=== PATIENT | female | born 1945 | race Caucasian/White ===

== ENCOUNTER 2023-06-12 14:14 | Inpatient (IN) | payer MEDICARE ==
[2023-06-12] MEDS ORDERED: SODIUM CHLORIDE 0.9% 1,000 ML IV ONE (14:57)
--- NOTE | 2023-06-12 14:57 | ED ---
General Adult HPI - General Chief complaint: Abdominal Pain Stated complaint: bowel obstruction Time Seen by Provider: 06/12/23 14:20 Source: patient, RN notes reviewed, old records reviewed Mode of arrival: EMS Limitations: no limitations - History of Present Illness Initial comments: This is a 77-year-old female presents emergency department from [facility]. Patient was seen there because she started having some abdominal pain and nausea and vomiting yesterday. Patient states he continues this morning got a little bit worse and she came to the emergency department with a diagnosed her with a partial small bowel obstruction and ileitis. They did not have a surgeon [place] the police transfer the patient to us. Patient denies any fever chills. Patient denies any back pain. Patient denies any lightheadedness or dizziness. Patient states that she was at the other facility and they gave her something for nausea if she feels considerably better. Patient currently does not have any abdominal pain - Related Data Allergies Allergy/AdvReac Type Severity Reaction Status Date / Time shellfish derived [Shellfish] Allergy Anaphylaxis Verified 06/12/23 14:28 Review of Systems ROS Statement: Those systems with pertinent positive or pertinent negative responses have been documented in the HPI. ROS Other: All systems not noted in ROS Statement are negative. Past Medical History Past Medical History: Diabetes Mellitus, Hyperlipidemia, Hypertension Additional Past Medical History / Comment(s): type II DM. h-pylori History of Any Multi-Drug Resistant Organisms: None Reported Past Surgical History: Appendectomy, Section, Orthopedic Surgery Past Psychological History: No Psychological Hx Reported Smoking Status: Never smoker Past Alcohol Use History: None Reported Past Drug Use History: None Reported General Exam - General Exam Comments Initial Comments: GENERAL: Patient is well-developed and well-nourished. Patient is nontoxic and well- hydrated and is in mild distress. ENT: Neck is soft and supple. No significant lymphadenopathy is noted. Oropharynx is clear. Moist mucous membranes. Neck has full range of motion without eliciting any pain. EYES: The sclera were anicteric and conjunctiva were pink and moist. Extraocular movements were intact and pupils were equal round and reactive to light. Eyelids were unremarkable. PULMONARY: Unlabored respirations. Good breath sounds bilaterally. No audible rales rhonchi or wheezing was noted. CARDIOVASCULAR: There is a regular rate and rhythm without any murmurs gallops or rubs. ABDOMEN: Soft and nontender with normal bowel sounds. SKIN: Skin is clear with no lesions or rashes and otherwise unremarkable. NEUROLOGIC: Patient is alert and oriented x3. Cranial nerves II through XII are grossly intact. Motor and sensory are also intact. Normal speech, volume and content. Symmetrical smile. MUSCULOSKELETAL: Normal extremities with adequate strength and full range of motion. No lower extremity swelling or edema. No calf tenderness. LYMPHATICS: No significant lymphadenopathy is noted PSYCHIATRIC: Normal psychiatric evaluation. Limitations: no limitations Course Vital Signs 06/12/23 06/12/23 14:17 14:27 Temperature 99.9 F H Pulse Rate 90 82 Respiratory 18 16 Rate Blood Pressure 144/77 O2 Sat by Pulse 98 Oximetry Medical Decision Making - Medical Decision Making Was pt. sent in by a medical professional or institution (, PA, CHARGE ATTENDANT, urgent care, hospital, or intermediate...) When possible be specific @ -Patient was sent to us by [facility] Did you speak to anyone other than the patient for history (EMS, parent, family, police, friend...)? What history was obtained from this source @ -I spoke with the ER physician prior to the patient's arrival Did you review nursing and triage notes (agree or disagree)? Why? @ -I reviewed and agree with nursing and triage notes Were old charts reviewed (outside hosp., previous admission, EMS record, old EKG, old radiological studies, urgent care reports/EKG's, intermediate records)? Report findings @ -I reviewed all the charting lab work and radiological studies from the other facility Differential Diagnosis (chest pain, altered mental status, abdominal pain women, abdominal pain men, vaginal bleeding, weakness, fever, dyspnea, syncope, headache, dizziness, GI bleed, back pain, seizure, CVA, palpatations, mental health, musculoskeletal)? @ -Differential Abdominal Pain Women: Appendicitis, Cholecystitis, diverticulosis, ischemic bowel, pancreatitis, hepatitis, UTI, gastroenteritis, AAA, incarcerated hernia, bowel obstruction, constipation, inflammatory bowel, hepatitis, peptic ulcer disease, splenic infarction, perforated viscus, vulvitis, ovarian torsion, PID, kidney stone, placenta abruption, this is not meant to be an all-inclusive list EKG interpreted by me (3pts min.). @ -As above X-rays interpreted by me (1pt min.). @ -None done CT interpreted by me (1pt min.). @ -None done U/S interpreted by me (1pt. min.). @ -None done What testing was considered but not performed or refused? (CT, X-rays, U/S, labs)? Why? @ -None What meds were considered but not given or refused? Why? @ -None Did you discuss the management of the patient with other professionals (professionals i.e. DrUzma, PA, CHARGE ATTENDANT, lab, RT, psych nurse, social director, auto tech, teacher, data officer, case preparer and liner)? Give summary @ -I spoke with Dr. Sequeira he agreed to admit the patient admitted the patient and I consulted surgery Was smoking cessation discussed for >3mins.? @ -No Was critical care preformed (if so, how long)? @ -No Were there social determinants of health that impacted care today? How? (Homelessness, low income, unemployed, alcoholism, drug addiction, transportation, low edu. Level, literacy, decrease access to med. care, correction, rehab)? @ -No Was there de-escalation of care discussed even if they declined (Discuss DNR or withdrawal of care, Hospice)? DNR status @ -No What co-morbidities impacted this encounter? (DM, HTN, Smoking, COPD, CAD, Cancer, CVA, ARF, Chemo, Hep., AIDS, mental health diagnosis, sleep apnea, morbid obesity)? @ -None Was patient admitted / discharged? Hospital course, mention meds given and route, prescriptions, significant lab abnormalities, going to OR and other pertinent info. @ -Patient has no abdominal pain currently is not nauseated so no further intervention was needed. I spoke with Dr. Sequeira he accepted the patient I consulted surgery Undiagnosed new problem with uncertain prognosis? @ -No Drug Therapy requiring intensive monitoring for toxicity (Heparin, Nitro, Insulin, Cardizem)? @ -No Were any procedures done? @ -No Diagnosis/symptom? @ -Partial small bowel obstruction Acute, or Chronic, or Acute on Chronic? @ -Acute Uncomplicated (without systemic symptoms) or Complicated (systemic symptoms)? @ -Complicated Side effects of treatment? @ -No Exacerbation, Progression, or Severe Exacerbation? @ -No Poses a threat to life or bodily function? How? (Chest pain, [place], [place], pneumonia, PE, COPD, DKA, ARF, appy, cholecystitis, CVA, Diverticulitis, Homicidal, Suicidal, threat to staff... and all critical care pts) @ -No Disposition Clinical Impression: Partial small bowel obstruction Disposition: ADMITTED IP TO THIS HOSP Referrals: Waqar Almazan MD [Primary Care Provider] - 1-2 days Time of Disposition: 14:57
[2023-06-12] MEDS: PANTOPRAZOLE 40 MG/10 ML VIAL IVP SCH ×2 (15:51→22:25)
--- NOTE | 2023-06-12 19:03 | HP ---
HISTORY AND PHYSICAL CHIEF COMPLAINT: Abdominal pain. HISTORY OF PRESENT ILLNESS: This is a 77-year-old woman with a past medical history of multiple medical problems had a recent GI workup including upper and lower endoscopy. H pylori infection was also dictated apparently. The patient took some antibiotics. Currently, the patient is complaining of abdominal pain, nausea, and vomiting. The patient also had some small amount of blood clot according to the family. The patient went to [facility] in [place], and small bowel obstruction was suspected, and the patient was transferred to [facility] for further evaluation and treatment. There is no history of fever, rigor, or chills. The patient is followed by Dr. Waqar Arriola in the outpatient setting. PAST MEDICAL HISTORY: Reviewed includes diabetes mellitus, hypertension, and hyperlipidemia. Rest of the history and rest of the chart are also reviewed. HOME MEDICATIONS: Unavailable. ALLERGIES: Shellfish. FAMILY HISTORY: No history of heart disease or strokes. SOCIAL HISTORY: No history of smoking or alcohol intake. REVIEW OF SYSTEMS: Fourteen-point review is negative except as mentioned earlier. PHYSICAL EXAMINATION: VITAL SIGNS: Pulse 90, blood pressure 144/77, respirations 16. HEENT: Conjunctivae are normal. NECK: No jugular venous distention. CARDIOVASCULAR: S1 and S2 muffled. RESPIRATORY: Breath sounds diminished at the bases. ABDOMEN: Soft. Mild diffuse discomfort. Otherwise, no guarding. No rigidity. No masses palpable. LEGS: No edema. NERVOUS SYSTEM: Nonfocal. LABORATORY DATA: Not available. ASSESSMENT: 1. Abdominal pain and vomiting, possible partial small bowel obstruction. 2. Possible acute gastritis. 3. History of recent esophagogastroduodenoscopy and colonoscopy with Helicobacter pylori infection. 4. Diabetes mellitus, type 2. 5. Hypertension. 6. Hyperlipidemia. 7. Multiple medical issues. RECOMMENDATIONS AND DISCUSSION: In this 77-year-old woman who presented with multiple complex medical issues, we will monitor the patient closely with initial Surgical consultation and symptomatic treatment with Protonix. Otherwise, we will follow the patient closely. Overall prognosis is guarded. Home medications will be continued once we got the updated list. Discussed with family at length. Further recommendations to follow. MMODL / IJN: [id number] /
[2023-06-12 20:16] LABS: Glucose,Whole Blood 130 mg/dL (70-110)
[2023-06-12] MEDS: INSULIN ASPART (NovoLOG) 100 UNIT/ML VIAL SQ SCH (21:48)
[2023-06-12] MEDS: HYDROmorphone 0.5 MG/0.5 ML SYRINGE IVP PRN (22:16)
[2023-06-12] MEDS: HEPARIN SODIUM,PORCINE 5,000 UNIT/ML 1 ML VIAL SQ SCH (22:17)
[2023-06-12] MEDS: ONDANSETRON 4 MG/2 ML VIAL IVP PRN (22:25)
[2023-06-13] MEDS: HYDROmorphone 0.5 MG/0.5 ML SYRINGE IVP PRN ×5 (04:19→21:13)
[2023-06-13] MEDS: ONDANSETRON 4 MG/2 ML VIAL IVP PRN ×2 (04:25→17:07)
[2023-06-13 06:58] LABS: Glucose,Whole Blood 129 mg/dL (70-110)
[2023-06-13] MEDS: INSULIN ASPART (NovoLOG) 100 UNIT/ML VIAL SQ SCH ×4 (07:47→21:13)
[2023-06-13] MEDS ORDERED: IOPAMIDOL CONTRAST (ORAL USE) VIAL PO PRN (08:46)
--- NOTE | 2023-06-13 08:46 | P.GSCN ---
History of Present Illness Consult date: 06/13/23 Reason for Consult: Partial small bowel obstruction History of present illness: This a 77-year-old female who is transferred from outside hospital. Patient points of abdominal pain nausea. The outside facility perform a CAT scan which showed possible partial small bowel charge. Patient still has complaints of nausea and some mild abdominal pain. Past Medical History Past Medical History: Diabetes Mellitus, Hyperlipidemia, Hypertension Additional Past Medical History / Comment(s): type II DM. h-pylori History of Any Multi-Drug Resistant Organisms: None Reported Past Surgical History: Appendectomy, Section, Orthopedic Surgery Past Anesthesia/Blood Transfusion Reactions: No Reported Reaction Past Psychological History: No Psychological Hx Reported Smoking Status: Never smoker Past Alcohol Use History: None Reported Past Drug Use History: None Reported Medications and Allergies Home Medications Medication Instructions Recorded Confirmed Type Atorvastatin [Lipitor] 20 mg PO HS 06/12/23 06/12/23 History Clarithromycin [Biaxin] 500 mg PO Q12HR 06/12/23 06/12/23 History Cyanocobalamin (Vitamin B-12) 1,000 mcg PO DAILY 06/12/23 06/12/23 History [Vitamin B-12] Ferrous Sulfate [Iron (65 MG 325 mg PO TID 06/12/23 06/12/23 History Elemental)] Lisinopril-Hctz 20-12.5 mg 1 tab PO DAILY 06/12/23 06/12/23 History [Zestoretic 20-12.5] Meloxicam [Mobic] 15 mg PO DAILY 06/12/23 06/12/23 History Metamucil Fiber Gummies 1 tab PO DAILY 06/12/23 06/12/23 History Omeprazole 40 mg PO BID 06/12/23 06/12/23 History amLODIPine [Norvasc] 5 mg PO DAILY 06/12/23 06/12/23 History metFORMIN HCL ER [Glucophage XR] 500 mg PO W/SUPPER 06/12/23 06/12/23 History metroNIDAZOLE [Flagyl] 500 mg PO BID 06/12/23 06/12/23 History Allergies Allergy/AdvReac Type Severity Reaction Status Date / Time shellfish derived [Shellfish] Allergy Anaphylaxis Verified 06/12/23 15:50 Surgical - Exam Vital Signs Temp Pulse Resp Pulse Ox 99.9 F H 90 18 98 06/12/23 14:17 06/12/23 14:17 06/12/23 14:17 06/12/23 14:17 - General well developed, well nourished, no distress - Eyes PERRL - ENT normal pinna - Neck no masses - Respiratory normal expansion - Cardiovascular Rhythm: regular - Abdomen Mildly tender, abdomen is distended. Abdomen: soft Results - Labs Abnormal Lab Results - Last 24 Hours (Table) 06/12/23 06/13/23 Range/Units 20:15 06:57 POC Glucose (mg/dL) 130 H 129 H (70-110) mg/dL Assessment and Plan Assessment: Abdominal distention and pain. Possible small bowel obstruction. Patient will undergo computed tomography scan of the abdomen with oral contrast.
[2023-06-13] MEDS: PANTOPRAZOLE 40 MG/10 ML VIAL IVP SCH ×2 (08:54→21:12)
[2023-06-13] MEDS: HEPARIN SODIUM,PORCINE 5,000 UNIT/ML 1 ML VIAL SQ SCH ×2 (08:54→21:12)
[2023-06-13 09:22] LABS: HCT 32.3 % (37.2-46.3); HGB 9.2 d/dL (12.0-15.0); MCH 23.2 pg (27.0-32.0); MCHC 28.5 d/dL (32.0-37.0); MCV 81.4 FL (80.0-97.0); Mean Platelet Volume 10.8 FL (9.5-12.2); NRBC Per 100 WBC 0 X 10*3/uL (0.00-0.01); Platelet Count 232 X 10*3/uL (140-440); RBC 3.97 X 10*6/uL (4.10-5.20); RDW 24.9 % (11.5-14.5); WBC 7.62 X 10*3/uL (4.50-10.00)
[2023-06-13] MEDS: BARIUM SULFATE 450 ML ORAL.SUSP BOTTLE PO PRN ×2 (10:12→12:49)
[2023-06-13 10:29] LABS: Anisocytosis (M) 2+; Basophils # (A) 0.01 X 10*3/uL (0.00-0.10); Basophils % (A) 0.1 %; Elliptocytes 2+; Eosinophils # (A) 0.12 X 10*3/uL (0.04-0.35); Eosinophils % (A) 1.6 %; Hypochromasia (M) 2+; Lymphocytes # (A) 1.04 X 10*3/uL (0.90-5.00); Lymphocytes % (A) 13.6 %; Monocytes # (A) 0.51 X 10*3/uL (0.20-1.00); Monocytes % (A) 6.7 %; Neutrophils % (A) 77.5 %
[2023-06-13 11:28] LABS: ALT 13 U/L (8-44); AST 19 U/L (13-35); Albumin 3.7 d/dL (3.8-4.9); Albumin/Globulin Ratio 2.06 Ratio (1.60-3.17); Alkaline Phosphatase 90 U/L (41-126); Amylase 38 U/L (23-121); Blood Urea Nitrogen 11.2 mg/dL (9.0-27.0); Calcium 8.7 mg/dL (8.7-10.3); Carbon Dioxide 21.6 mmol/L (21.6-31.8); Chloride 107 mmol/L (96-109); Globulin 1.8 d/dL (1.6-3.3); Glucose 134 mg/dL (70-110); Lipase 22 U/L (14-63); Potassium 4.2 mmol/L (3.5-5.5); Sodium 140 mmol/L (135-145); Total Bilirubin 0.4 mg/dL (0.3-1.2); Total Protein 5.5 d/dL (6.2-8.2)
[2023-06-13 11:54] LABS: Glucose,Whole Blood 107 mg/dL (70-110)
[2023-06-13 13:34] VITALS: BMI 30.2
--- NOTE | 2023-06-13 13:38 | P.PN ---
Subjective Progress Note Date: 06/13/23 This a 77-year-old female who is transferred from outside hospital. Patient points of abdominal pain nausea. The outside facility perform a CAT scan which showed possible partial small bowel charge. 06/13. Patient seen and examined. Lab work showed WBC 7.62, hemoglobin 9.2, platelet count 232. States pain is improved. Denies any nausea REVIEW OF SYSTEMS: CONSTITUTIONAL: No fever, no malaise,. CARDIOVASCULAR: No chest pain, no palpitations, no syncope. PULMONARY: No shortness of breath, no cough, GASTROINTESTINAL: No diarrhea, no nausea, no vomiting, no abdominal pain. NEUROLOGICAL: No headaches, no weakness, PHYSICAL EXAMINATION: GENERAL: The patient is alert and oriented x3, not in any acute distress. Well developed, well nourished. HEENT: Pupils are round and equally reacting to light. EOMI. No scleral icterus. No conjunctival pallor. Normocephalic, atraumatic. No pharyngeal erythema. No thyromegaly. CARDIOVASCULAR: S1 and S2 present. No murmurs, rubs, or gallops. PULMONARY: Chest is clear to auscultation, no wheezing or crackles. ABDOMEN: Soft, nontender, nondistended, normoactive bowel sounds. No palpable organomegaly. MUSCULOSKELETAL: No joint swelling or deformity. EXTREMITIES: No cyanosis, clubbing, or pedal edema. NEUROLOGICAL: Gross neurological examination did not reveal any focal deficits. SKIN: No rashes. Assessment and plan Abdominal pain Nausea and vomiting Small bowel obstruction Acute gastritis H pylori infection Diabetes type 2 Hypertension Hyperlipidemia Monitor vital signs Monitor CBC Monitor CMP Continue telemetry monitoring Keep patient nothing by mouth Continue IV fluid CT abdominal ordered Surgery following She was supposed with antibiotics for H. pylori, patient stopped taking those medications. Resume Those medications Labs and medication were reviewed.. Continue same treatment. Continue with symptomatic treatment. Resume home medication. Monitor labs and vitals. DVT and GI prophylaxis. Further recommendations as per clinical course of the patient Dictation was produced using [employer] dictation software. please excuse any grammatical, word or spelling errors. Objective - Vital Signs Vital signs: Vital Signs Temp 97.7 F 06/13/23 06:52 Pulse 96 06/13/23 06:52 Resp 18 06/13/23 06:52 BP 118/74 09/23/23 06:52 Pulse Ox 98 06/13/23 06:52 FiO2 Intake & Output 06/12/23 06/13/23 06/13/23 18:59 06:59 18:59 Weight 84.822 kg 84.822 kg Other: Voiding Method Toilet # Voids 1 1 - Labs CBC & Chem 7: 06/13/23 05:20 06/13/23 05:20 Labs: Abnormal Lab Results - Last 24 Hours (Table) 06/12/23 06/13/23 06/13/23 Range/Units 20:15 05:20 06:57 RBC 3.97 L (4.10-5.20) X 10*6/uL Hgb 9.2 L (12.0-15.0) d/dL Hct 32.3 L (37.2-46.3) % MCH 23.2 L (27.0-32.0) pg MCHC 28.5 L (32.0-37.0) d/dL RDW 24.9 H (11.5-14.5) % Hypochromasia (manual) 2+ A Anisocytosis (manual) 2+ A Elliptocytes 2+ A POC Glucose (mg/dL) 130 H 129 H (70-110) mg/dL
[2023-06-13] MEDS: metroNIDAZOLE 500 MG TAB PO SCH ×2 (14:56→21:12)
[2023-06-13] MEDS: CYANOCOBALAMIN 500 MCG TAB PO SCH (15:01)
--- NOTE | 2023-06-13 15:12 | CT ---
EXAMINATION TYPE: CT abdomen pelvis wo con CT DLP: 759.8 mGycm, Automated exposure control for dose reduction was used. DATE OF EXAM: 06/13/2023 2:14 PM COMPARISON: 06/12/2023 CLINICAL INDICATION:Female, 77 years old with history of Small bowel obstruction; Small bowel obstruc tion. TECHNIQUE: Axial CT of the abdomen and pelvis. Sagittal and coronal reformats were created on a [employer] workstation. Contrast used: mL of , (none if empty) Oral contrast used: with Oral Contrast (none if empty) FINDINGS: LOWER CHEST: Similar right lower lung pulmonary nodule near the diaphragm measuring 6 mm. There is moderate coronary artery atherosclerosis. Smaller hernia. ABDOMEN LIVER: Unremarkable GALLBLADDER AND BILE DUCTS: Gallstone in the gallbladder neck. PANCREAS: Unremarkable. SPLEEN: Unremarkable. ADRENAL GLANDS: Unremarkable. KIDNEYS AND URETERS: No evidence of hydronephrosis or renal calculus. The ureters are unremarkable. PELVIS BLADDER: Incompletely distended but grossly unremarkable. REPRODUCTIVE: Unremarkable. ABDOMEN & PELVIS STOMACH AND BOWEL: There remains small bowel feces in the distal ileum with wall thickening of the te rminal ileum up to 10 mm. There is upstream dilation of the small bowel. There is some irregular appe arance of the cecum on prior imaging near the ileocecal valve. Small bowel oral contrast extends into the jejunum. There is some stool within the colon present PERITONEUM/RETROPERITONEUM: No evidence of pneumoperitoneum or free fluid. VASCULATURE: No evidence of aortic aneurysm. MUSCULOSKELETAL: No acute osseous abnormalities LYMPH NODES: Right lower quadrant enlarged mesenteric lymph nodes in the terminal ileum measuring up to 10 mm in short axis. SOFT TISSUE/ABDOMINAL WALL: Unremarkable IMPRESSION: 1. Similar findings from one day prior with irregular appearance of the terminal ileum with possible underlying mass better appreciated on prior exam. Findings result in partial small bowel obstruction . Oral contrast only extends to the jejunum. There may be mildly increased dilation compared to prior exam. There is some adjacent mesentery enlarged lymph nodes which could be reactive versus neoplasti c if there is underlying mass. 2. Similar pulmonary nodules short-term follow-up in 6 months recommended. 3. Cholelithiasis. 4. Small hiatal hernia. 5. Moderate coronary artery atherosclerosis.
[2023-06-13 17:04] LABS: Glucose,Whole Blood 123 mg/dL (70-110)
[2023-06-13 20:13] LABS: Glucose,Whole Blood 137 mg/dL (70-110)
[2023-06-13] MEDS ORDERED: NON FORMULARY DRUG (Omeprazole [Omeprazole] 40 MG Capsule.Dr) PO SCH (21:00)
[2023-06-13] MEDS: CLARITHROMYCIN 500 MG TAB PO SCH ×2 (21:09→21:34)
[2023-06-13] MEDS: ATORVASTATIN 20 MG TAB PO SCH ×2 (21:09→21:34)
[2023-06-13] MEDS: AZITHROMYCIN 500 MG in SODIUM CHLORIDE 0.9% 250 ML IVPB SCH (22:15)
[2023-06-13] MEDS: metroNIDAZOLE-NS PMX 500 MG in SALINE 1 100ML.BAG IVPB SCH (22:15)
[2023-06-14] MEDS: HYDROmorphone 0.5 MG/0.5 ML SYRINGE IVP PRN (05:14)
[2023-06-14] MEDS: ONDANSETRON 4 MG/2 ML VIAL IVP PRN (05:15)
[2023-06-14 07:18] LABS: Glucose,Whole Blood 110 mg/dL (70-110)
[2023-06-14] MEDS: HEPARIN SODIUM,PORCINE 5,000 UNIT/ML 1 ML VIAL SQ SCH ×2 (08:47→20:45)
[2023-06-14] MEDS: amLODIPine 5 MG TAB PO SCH (08:47)
[2023-06-14] MEDS: CYANOCOBALAMIN 500 MCG TAB PO SCH (08:47)
[2023-06-14] MEDS: PANTOPRAZOLE 40 MG/10 ML VIAL IVP SCH ×2 (08:47→20:45)
[2023-06-14] MEDS: INSULIN ASPART (NovoLOG) 100 UNIT/ML VIAL SQ SCH ×4 (08:48→20:45)
[2023-06-14] MEDS: metroNIDAZOLE-NS PMX 500 MG in SALINE 1 100ML.BAG IVPB SCH ×2 (08:48→20:45)
[2023-06-14 09:03] LABS: HCT 32.8 % (37.2-46.3); HGB 9.3 d/dL (12.0-15.0); MCH 23.1 pg (27.0-32.0); MCHC 28.4 d/dL (32.0-37.0); MCV 81.4 FL (80.0-97.0); Mean Platelet Volume 11.1 FL (9.5-12.2); NRBC Per 100 WBC 0 X 10*3/uL (0.00-0.01); Platelet Count 242 X 10*3/uL (140-440); RBC 4.03 X 10*6/uL (4.10-5.20); RDW 24.7 % (11.5-14.5); WBC 8.54 X 10*3/uL (4.50-10.00)
--- NOTE | 2023-06-14 10:30 | P.PN ---
Progress Note - Text Progress Note Date: 06/14/23 Patient feels better today. She's had bowel movements and flatus. Computed tomography scan report is noted. Patient has history of GERD and some intermittent right upper quadrant pain. Her computed tomography scan shows evidence of cholelithiasis and a hiatal hernia. The parents patient states that she's been many years instead colonoscopy. On exam vital signs appear stable. Abdomen is soft. Patiently ever nasogastric tube removed. She'll start on clear liquid diet. Patient will be scheduled colonoscopy later this week.
[2023-06-14 11:58] LABS: ALT 12 U/L (8-44); AST 18 U/L (13-35); Albumin 3.6 d/dL (3.8-4.9); Alkaline Phosphatase 87 U/L (41-126); BUN/Creat Ratio 21.14 Ratio (12.00-20.00); Blood Urea Nitrogen 14.8 mg/dL (9.0-27.0); Calcium 8.6 mg/dL (8.7-10.3); Carbon Dioxide 22.2 mmol/L (21.6-31.8); Chloride 106 mmol/L (96-109); Globulin 1.8 d/dL (1.6-3.3); Glucose 108 mg/dL (70-110); Potassium 4.2 mmol/L (3.5-5.5); Sodium 139 mmol/L (135-145); Total Bilirubin 0.3 mg/dL (0.3-1.2); Total Protein 5.4 d/dL (6.2-8.2)
[2023-06-14 12:19] LABS: Glucose,Whole Blood 113 mg/dL (70-110)
--- NOTE | 2023-06-14 12:59 | P.PN ---
Subjective Progress Note Date: 06/14/23 This a 77-year-old female who is transferred from outside hospital. Patient points of abdominal pain nausea. The outside facility perform a CAT scan which showed possible partial small bowel charge. 06/13. Patient seen and examined. Lab work showed WBC 7.62, hemoglobin 9.2, platelet count 232. States pain is improved. Denies any nausea 06/14. Patient seen and examined.CT abdominal and pelvis done showed irregular periods the terminal ileum with possible underlying mass. Findings resulting in partial small bowel obstruction. Surgery planning colonoscopy later in the week REVIEW OF SYSTEMS: CONSTITUTIONAL: No fever, no malaise,. CARDIOVASCULAR: No chest pain, no palpitations, no syncope. PULMONARY: No shortness of breath, no cough, GASTROINTESTINAL: No diarrhea, no nausea, no vomiting, no abdominal pain. NEUROLOGICAL: No headaches, no weakness, PHYSICAL EXAMINATION: GENERAL: The patient is alert and oriented x3, not in any acute distress. Well developed, well nourished. HEENT: Pupils are round and equally reacting to light. EOMI. No scleral icterus. No conjunctival pallor. Normocephalic, atraumatic. No pharyngeal erythema. No thyromegaly. CARDIOVASCULAR: S1 and S2 present. No murmurs, rubs, or gallops. PULMONARY: Chest is clear to auscultation, no wheezing or crackles. ABDOMEN: Soft, nontender, nondistended, normoactive bowel sounds. No palpable organomegaly. MUSCULOSKELETAL: No joint swelling or deformity. EXTREMITIES: No cyanosis, clubbing, or pedal edema. NEUROLOGICAL: Gross neurological examination did not reveal any focal deficits. SKIN: No rashes. Assessment and plan Abdominal pain Nausea and vomiting Small bowel obstruction Acute gastritis H pylori infection Diabetes type 2 Hypertension Hyperlipidemia Monitor vital signs Monitor CBC Monitor CMP Continue telemetry monitoring Continue clear liquid diet Continue IV fluid CT abdominal and pelvis done showed irregular periods the terminal ileum with possible underlying mass. Findings resulting in partial small bowel obstruction Surgery following, planning colonoscopy She was supposed with antibiotics for H. pylori, patient stopped taking those medications. Continue H. pylori treatment Labs and medication were reviewed.. Continue same treatment. Continue with symptomatic treatment. Resume home medication. Monitor labs and vitals. DVT and GI prophylaxis. Further recommendations as per clinical course of the patient Dictation was produced using [employer] dictation software. please excuse any grammatical, word or spelling errors. Objective - Vital Signs Vital signs: Vital Signs Temp 98.9 F 06/14/23 07:10 Pulse 80 06/14/23 07:10 Resp 18 06/14/23 07:10 BP 123/72 06/14/23 07:10 Pulse Ox 94 L 06/14/23 07:10 FiO2 Intake & Output 06/13/23 06/14/23 06/14/23 18:59 06:59 18:59 Intake Total 350 Output Total 350 Balance 0 Weight 84.822 kg Intake: Intake, IV Titration 350 Amount Azithromycin 500 mg In 250 Sodium Chloride 0.9% 250 ml @ 250 mls/hr IVPB Q24H [facility] Rx#:[id number] metroNIDAZOLE-NS PMX 500 100 mg In Saline 1 100ml.bag @ 100 mls/hr IVPB Q12HR [facility] Rx#:[id number] Output: Gastric Drainage 350 Other: Voiding Method Toilet # Voids 1 1 - Labs CBC & Chem 7: 06/14/23 05:57 06/14/23 05:57 Labs: Abnormal Lab Results - Last 24 Hours (Table) 06/13/23 06/13/23 06/13/23 Range/Units 05:20 05:20 17:02 RBC (4.10-5.20) X 10*6/uL Hgb (12.0-15.0) d/dL Hct (37.2-46.3) % MCH (27.0-32.0) pg MCHC (32.0-37.0) d/dL RDW (11.5-14.5) % Hypochromasia (manual) 2+ A Anisocytosis (manual) 2+ A Elliptocytes 2+ A Glucose 134 H (70-110) mg/dL POC Glucose (mg/dL) 123 H (70-110) mg/dL Total Protein 5.5 L (6.2-8.2) d/dL Albumin 3.7 L (3.8-4.9) d/dL 06/13/23 06/14/23 Range/Units 20:11 05:57 RBC 4.03 L (4.10-5.20) X 10*6/uL Hgb 9.3 L (12.0-15.0) d/dL Hct 32.8 L (37.2-46.3) % MCH 23.1 L (27.0-32.0) pg MCHC 28.4 L (32.0-37.0) d/dL RDW 24.7 H (11.5-14.5) % Hypochromasia (manual) Anisocytosis (manual) Elliptocytes Glucose (70-110) mg/dL POC Glucose (mg/dL) 137 H (70-110) mg/dL Total Protein (6.2-8.2) d/dL Albumin (3.8-4.9) d/dL
[2023-06-14 17:31] LABS: Glucose,Whole Blood 106 mg/dL (70-110)
[2023-06-14 20:11] LABS: Glucose,Whole Blood 164 mg/dL (70-110)
[2023-06-14] MEDS: ATORVASTATIN 20 MG TAB PO SCH (20:45)
[2023-06-14] MEDS: AZITHROMYCIN 500 MG in SODIUM CHLORIDE 0.9% 250 ML IVPB SCH (21:49)
[2023-06-15] MEDS: HYDROmorphone 0.5 MG/0.5 ML SYRINGE IVP PRN (06:31)
[2023-06-15] MEDS: ONDANSETRON 4 MG/2 ML VIAL IVP PRN ×3 (06:34→20:28)
[2023-06-15 07:02] LABS: Glucose,Whole Blood 101 mg/dL (70-110)
[2023-06-15] MEDS: INSULIN ASPART (NovoLOG) 100 UNIT/ML VIAL SQ SCH ×4 (07:46→20:20)
[2023-06-15] MEDS: PANTOPRAZOLE 40 MG/10 ML VIAL IVP SCH (08:24)
[2023-06-15] MEDS: HEPARIN SODIUM,PORCINE 5,000 UNIT/ML 1 ML VIAL SQ SCH (09:41)
[2023-06-15] MEDS: CYANOCOBALAMIN 500 MCG TAB PO SCH (09:41)
[2023-06-15] MEDS: amLODIPine 5 MG TAB PO SCH (09:41)
[2023-06-15] MEDS: metroNIDAZOLE-NS PMX 500 MG in SALINE 1 100ML.BAG IVPB SCH ×2 (09:42→20:12)
[2023-06-15 11:37] LABS: Glucose,Whole Blood 144 mg/dL (70-110)
[2023-06-15 11:38] LABS: HCT 30.2 % (37.2-46.3); HGB 8.7 d/dL (12.0-15.0); MCH 23.6 pg (27.0-32.0); MCHC 28.8 d/dL (32.0-37.0); MCV 81.8 FL (80.0-97.0); Mean Platelet Volume 10.9 FL (9.5-12.2); NRBC Per 100 WBC 0 X 10*3/uL (0.00-0.01); Platelet Count 205 X 10*3/uL (140-440); RBC 3.69 X 10*6/uL (4.10-5.20); RDW 24.7 % (11.5-14.5); WBC 6.23 X 10*3/uL (4.50-10.00)
[2023-06-15 11:49] LABS: ALT 11 U/L (8-44); AST 18 U/L (13-35); Albumin 3.3 d/dL (3.8-4.9); Albumin/Globulin Ratio 2.06 Ratio (1.60-3.17); Alkaline Phosphatase 76 U/L (41-126); BUN/Creat Ratio 15.14 Ratio (12.00-20.00); Blood Urea Nitrogen 10.6 mg/dL (9.0-27.0); Calcium 8.7 mg/dL (8.7-10.3); Carbon Dioxide 25.4 mmol/L (21.6-31.8); Chloride 105 mmol/L (96-109); Globulin 1.6 d/dL (1.6-3.3); Glucose 93 mg/dL (70-110); Sodium 138 mmol/L (135-145); Total Bilirubin 0.3 mg/dL (0.3-1.2); Total Protein 4.9 d/dL (6.2-8.2)
--- NOTE | 2023-06-15 15:16 | P.PN ---
Subjective Progress Note Date: 06/15/23 CHIEF COMPLAINT: Abdominal HISTORY OF PRESENT ILLNESS: Patient lying in bed comfortably. She does report some lower abdominal pain. She reports no bowel movement. Denies any nausea or vomiting. Computed tomography scan abdomen and pelvis reports irregular appearance of the terminal ileum with possible underlying mass. Findings results and partial small bowel obstruction. Cholelithiasis. Small hiatal hernia. Patient tolerating the clear liquids. She reports that her last colonoscopy was 2 weeks ago out of [place]. PHYSICAL EXAM: VITAL SIGNS: Reviewed. GENERAL: Well-developed in no acute distress. ABDOMEN: Soft. Nondistended. NEUROLOGIC: Alert and oriented. Cranial nerves II through XII grossly intact. ASSESSMENT: 1. Partial small bowel obstruction 2. Cholelithiasis 3. Small hilar hernia 4. Irregular appearance of the terminal ileum with possible underlying mass noted on CT PLAN: -We'll obtain copies of her recent colonoscopy report 2 weeks ago out of [place] -Advance diet to full liquids -Lactulose 30ml every 2 hours 2 doses -No plans to repeat colonoscopy at this time -Continue to monitor -Medicine service has ordered a barium swallow with small bowel follow-through. Results pending. Physician Mc Kay Stitcher note has been reviewed by physician. Signing provider agrees with the documented findings, assessment, and plan of care. Objective - Vital Signs Vital signs: Vital Signs Temp 98.2 F 06/15/23 06:50 Pulse 82 06/15/23 06:50 Resp 17 06/15/23 06:50 BP 118/78 06/15/23 06:50 Pulse Ox 98 06/15/23 06:50 FiO2 Intake & Output 06/14/23 06/15/23 06/15/23 18:59 06:59 18:59 Intake Total 1200 560 Balance 1200 560 Intake: Oral 1200 560 Other: Voiding Method Toilet # Voids 3 4 - Labs CBC & Chem 7: 06/15/23 06:20 06/15/23 06:20 Labs: Abnormal Lab Results - Last 24 Hours (Table) 06/14/23 06/14/23 06/14/23 Range/Units 05:57 12:18 20:08 BUN/Creatinine Ratio 21.14 H (12.00-20.00) Ratio POC Glucose (mg/dL) 113 H 164 H (70-110) mg/dL Calcium 8.6 L (8.7-10.3) mg/dL Total Protein 5.4 L (6.2-8.2) d/dL Albumin 3.6 L (3.8-4.9) d/dL
[2023-06-15] MEDS: LACTULOSE 20 GM/30 ML CUP PO SCH ×2 (15:22→17:11)
--- NOTE | 2023-06-15 16:37 | FL ---
EXAMINATION TYPE: FL barium swallow w SBFT DATE OF EXAM: 06/15/2023 COMPARISON: None HISTORY: Small bowel obstruction, ileus mass TECHNIQUE: Single contrast esophagram is performed. Small bowel follow-through is performed with oral contrast. Patient had a clear liquid diet. Fluoroscopy time: 41 seconds. Images: 13 FINDINGS: Esophagram: The esophagus dilates caliber is normal contour of the gastroesophageal junction. Gastroe sophageal junction opens to normal caliber. Small bowel follow-through: Following additional oral administration of water soluble contrast sequen tial images were obtained over the abdomen. Small bowel appears mildly diffusely prominent. Ileal and jejunal fold pattern appears normal. There is delayed transit time measuring approximately 2 1/2 jayne rs. Distal ileum appears normal on these images. No mass or mass effect is evident. Couple of air bubbles are identified on final overhead radiographs which is not persistent with additional images at this level. No persistent filling defect identified within the terminal ileum. No extraluminal abnormalit y identified. There is delayed contrast into the proximal ileum. IMPRESSION: 1. No obstruction. Some ileus beginning at the proximal ileum may be present. 2. No ileal mass radiographically apparent small bowel follow-through.
[2023-06-15 17:02] LABS: Glucose,Whole Blood 121 mg/dL (70-110)
--- NOTE | 2023-06-15 18:02 | P.PN ---
Progress Note - Text Progress Note Date: 06/15/23 This a 77-year-old female who is transferred from outside hospital. Patient points of abdominal pain nausea. The outside facility perform a CAT scan which showed possible partial small bowel charge. 06/13. Patient seen and examined. Lab work showed WBC 7.62, hemoglobin 9.2, platelet count 232. States pain is improved. Denies any nausea 06/14. Patient seen and examined.CT abdominal and pelvis done showed irregular periods the terminal ileum with possible underlying mass. Findings resulting in partial small bowel obstruction. Surgery planning colonoscopy later in the week June 15: I assumed care of the patient today. Patient's had no bowel movement for last 1 week. Very small amount of flatus. Has had intermittent upper abdominal pain. Not related to food. Decreased appetite. I did order a small bowel follow-through. Found to have small bowel mildly diffusely prominent. No filling defect reported.-Delayed transit time. We'll get a GI consultation also. Patient been placed in a full liquid diet per surgery. There is no white count, no fever. DC antibiotics. Active Medications Amlodipine Besylate (Amlodipine 5 Mg Tab) 5 mg PO DAILY [facility] Last Admin: 06/15/23 09:41 Dose: 5 mg Atorvastatin Calcium (Atorvastatin 20 Mg Tab) 20 mg PO HS [facility] Last Admin: 06/14/23 20:45 Dose: 20 mg Cyanocobalamin (Cyanocobalamin 500 Mcg Tab) 1,000 mcg PO DAILY [facility] Last Admin: 06/15/23 09:41 Dose: 1,000 mcg Heparin Sodium (Porcine) (Heparin Sodium,Porcine 5,000 Unit/Ml 1 Ml Vial) 5,000 unit SQ Q12HR [facility] Last Admin: 06/15/23 09:41 Dose: 5,000 unit Hydromorphone HCl (Hydromorphone 0.5 Mg/0.5 Ml Syringe) 0.5 mg IVP Q4H PRN PRN Reason: Severe Pain (Scale 7 to 10) Last Admin: 06/15/23 06:31 Dose: 0.5 mg Azithromycin 500 mg/ Sodium (Chloride) 250 mls @ 250 mls/hr IVPB Q24H [facility]; Protocol Stop: 06/15/23 22:59 Last Admin: 06/14/23 21:49 Dose: 250 mls/hr Metronidazole 500 mg/ IV (Solution) 100 mls @ 100 mls/hr IVPB Q12HR [facility]; Protocol Last Admin: 06/15/23 09:42 Dose: 100 mls/hr Insulin Aspart (Insulin Aspart (Novolog) 100 Unit/Ml Vial) 0 unit SQ ACHS [facility]; Protocol Last Admin: 06/15/23 17:12 Dose: Not Given Ondansetron HCl (Ondansetron 4 Mg/2 Ml Vial) 4 mg IVP Q6HR PRN PRN Reason: Nausea And Vomiting Last Admin: 06/15/23 14:32 Dose: 4 mg Pantoprazole Sodium (Pantoprazole 40 Mg/10 Ml Vial) 40 mg IVP BID [facility] Last Admin: 06/15/23 08:24 Dose: 40 mg On examination: VITAL SIGNS: [98.4, 86, 18, 118/78, 98% room air GENERAL APPEARANCE: Laying in bed, not in distress HEENT: Normal external appearance of nose and ear. Oral cavity normal EYES: Pupils equal. Conjunctiva normal. NECK: JVD not raised. Mass not palpable. RESPIRATORY: Respiratory effort normal. Lungs clear to auscultation. CARDIOVASCULAR: First and second sounds normal. No edema. ABDOMEN: Soft. Liver and spleen not palpable. Mid and upper abdomen tenderness.- Central. No mass palpable. No guarding rigidity PSYCHIATRY: Alert and oriented x3. Mood and affect normal. INVESTIGATIONS, reviewed in the clinical context: Small bowel follow-through:small bowel mildly diffusely prominent. No filling defect reported.-Delayed transit time. CT abdomen pelvis: Irregular appearance of the terminal ileum with possible underlying mass. Appreciated on the prior exam. Some ingestion miss entry enlarged lymph node. Gallstones. Assessment and plan: - Abdominal pain. No bowel movement for last 1 week. Computed tomography scan small bowel through results noted. Patient did have a colonoscopy recently. In [place].: Not improving Dr. Reinoso following from general surgery. Consult GI. Full liquid diet. No fever no white count. DC antibiotics. -Diabetes mellitus type 2, on oral hypoglycemic Follow Accu-Cheks and sliding scale. Hold Glucophage. -Essential hypertension Zestoretic. -Hyperlipidemia Lipitor Discussed patient. Small bowel follow-through was ordered. Results noted. GI consulted. I'll order CEA.
[2023-06-15] MEDS: ENOXAPARIN 40 MG/0.4 ML SYRINGE SQ SCH (18:37)
[2023-06-15] MEDS: FAMOTIDINE 20 MG TAB PO SCH (20:12)
[2023-06-15] MEDS: ATORVASTATIN 20 MG TAB PO SCH (20:12)
[2023-06-15 20:19] LABS: Glucose,Whole Blood 136 mg/dL (70-110)
[2023-06-15] MEDS: AZITHROMYCIN 500 MG in SODIUM CHLORIDE 0.9% 250 ML IVPB SCH (21:55)
[2023-06-16 06:53] LABS: Glucose,Whole Blood 101 mg/dL (70-110)
[2023-06-16] MEDS: INSULIN ASPART (NovoLOG) 100 UNIT/ML VIAL SQ SCH ×4 (07:19→21:48)
[2023-06-16] MEDS: amLODIPine 5 MG TAB PO SCH (08:25)
[2023-06-16] MEDS: ENOXAPARIN 40 MG/0.4 ML SYRINGE SQ SCH (08:25)
[2023-06-16] MEDS: CYANOCOBALAMIN 500 MCG TAB PO SCH (08:25)
[2023-06-16] MEDS: metroNIDAZOLE-NS PMX 500 MG in SALINE 1 100ML.BAG IVPB SCH ×2 (08:25→19:53)
[2023-06-16] MEDS: FAMOTIDINE 20 MG TAB PO SCH ×2 (08:25→19:52)
[2023-06-16 11:37] LABS: Glucose,Whole Blood 149 mg/dL (70-110)
--- NOTE | 2023-06-16 12:39 | P.CONS ---
History of Present Illness - Reason for Consult Consult date: 06/16/[address] Requesting physician: Nithin Welsh - Chief Complaint Abdominal pain, small bowel obstruction - History of Present Illness This is a pleasant 77-year-old female who was transferred from [facility] for small bowel obstruction. Patient states she is having some abdominal pain since about 2-3 days following her colonoscopy done on 06/01/2023. Pain had gotten worse, she became constipated and was having nausea and vomiting. She had a CT of the abdomen and pelvis at [facility] reporting small bowel obstruction and ileitis. She has a past medical history including chronic constipation, anemia, diabetes mellitus, hyperlipidemia and hypertension. She reports abdominal pain improved, she's had multiple bowel movements and she came here to the hospital. Gen. surgery has been following. She had a CT of the abdomen and pelvis at this facility reporting similar findings from one day prior with irregular appearance of the terminal ileum with possible underlying mass better appreciated on prior exam. Findings result in partial small bowel obstruction. Oral contrast flowing stents to the jejunum. There may be mildly increased dilation compared to prior exam. Some adjacent mesentery enlarged lymph nodes which could be reactive versus neoplastic if there is underlying mass. Similar pulmonary nodules, short-term follow-up in six-month recommended. Cholelithiasis, small hiatal hernia and moderate coronary artery arthroscle rosis. She also underwent upper GI series reporting no obstruction. Some ileus beginning at the proximal ileum may be present. No ileal mass radiographically apparent small bowel follow-through. She denies any nausea or vomiting. She is been advanced to full liquid diet. States she has had multiple loose bowel movements. Patient recently had a EGD and colonoscopy with Dr. Carr on 06/01/2023 for weight loss and anemia. Patient states she weighed 240 pounds and now is at 187 however states she's not eating as much because she has no bottom teeth. She was told from her PCP that she was anemic she denies any blood in her stool or black stool. She does take Mobic regularly she denies any anticoagulation. Report from [facility] shows EGD colonoscopy done on 06/01/2023 with EGD findings of mild antral gastritis, duodenitis and class C erosive esophagitis. Colonoscopy reported grade 2 internal hemorrhoids and multiple colon polyps status post polypectomy. Biopsy results show small bowel mucosa nonspecific chronic inflammation, gastric antrum moderate active chronic inflammation and GE junction with minimal reflux and minimal inflammation. Colon polyp fragment was stool. Review of Systems REVIEW OF SYSTEMS: CARDIOPULMONARY: No chest pain or shortness of breath. Gastrointestinal: Abdominal pain, however improved. No nausea or vomiting. No hematemesis, coffee-ground emesis. No rectal bleeding, or melena. Chronic constipation GENITOURINARY: No dysuria or hematuria. MUSCULOSKELETAL: Reports normal range of motion. SKIN: No rashes. No jaundice. ENDOCRINE: No chills, fevers. No excessive weight gain or loss. No polydipsia or polyuria. PSYCHIATRIC: Unremarkable. NEUROLOGY: No change in mental status. Denies dizziness, headache. ENT: Vision unremarkable. CONSTITUTIONAL: No recent weight loss. No fever, chills, night sweats. Past Medical History Past Medical History: Diabetes Mellitus, Hyperlipidemia, Hypertension Additional Past Medical History / Comment(s): type II DM. h-pylori History of Any Multi-Drug Resistant Organisms: None Reported Past Surgical History: Appendectomy, Section, Orthopedic Surgery Past Anesthesia/Blood Transfusion Reactions: No Reported Reaction Past Psychological History: No Psychological Hx Reported Smoking Status: Never smoker Past Alcohol Use History: None Reported Past Drug Use History: None Reported Medications and Allergies Home Medications Medication Instructions Recorded Confirmed Type Atorvastatin [Lipitor] 20 mg PO HS 06/12/23 06/12/23 History Clarithromycin [Biaxin] 500 mg PO Q12HR 06/12/23 06/12/23 History Cyanocobalamin (Vitamin B-12) 1,000 mcg PO DAILY 06/12/23 06/12/23 History [Vitamin B-12] Ferrous Sulfate [Iron (65 MG 325 mg PO TID 06/12/23 06/12/23 History Elemental)] Lisinopril-Hctz 20-12.5 mg 1 tab PO DAILY 06/12/23 06/12/23 History [Zestoretic 20-12.5] Meloxicam [Mobic] 15 mg PO DAILY 06/12/23 06/12/23 History Metamucil Fiber Gummies 1 tab PO DAILY 06/12/23 06/12/23 History Omeprazole 40 mg PO BID 06/12/23 06/12/23 History amLODIPine [Norvasc] 5 mg PO DAILY 06/12/23 06/12/23 History metFORMIN HCL ER [Glucophage XR] 500 mg PO W/SUPPER 06/12/23 06/12/23 History metroNIDAZOLE [Flagyl] 500 mg PO BID 06/12/23 06/12/23 History Allergies Allergy/AdvReac Type Severity Reaction Status Date / Time shellfish derived [Shellfish] Allergy Anaphylaxis Verified 06/12/23 15:50 Physical Exam Vitals: Vital Signs Temp Pulse Resp BP Pulse Ox 06/16/23 06:50 98.7 F 78 18 116/72 99 06/16/23 02:18 98.8 F 86 18 111/71 97 06/15/23 19:01 99.5 F 96 18 146/81 97 Intake and Output 06/15/23 06/16/23 06/16/23 22:59 06:59 14:59 Other: Voiding Method Toilet # Voids 2 4 1 # Bowel Movements 1 General appearance: The patient is alert, oriented, appears in no acute distre ss. HET: Head is normocephalic and atraumatic. Conjunctiva pink. Sclera anicteric. Neck: Supple without lymphadenopathy. Trachea midline. Heart: Regular. Lungs: Equal expansion, normal respiratory effort. Abdomen: Soft, tenderness mostly in the mid and left abdomen. Nondistended with bowel sounds. No guarding or rigidity. Skin: No rashes. No jaundice. Extremities: Normal skin color and turgor. No pedal edema. Neurological: No focal deficits. Alert and oriented x3. Results CBC & Chem 7: 06/15/23 06:20 06/15/23 06:20 Labs: Abnormal Lab Results - Last 24 Hours (Table) 06/15/23 06/15/23 06/16/23 Range/Units 17:00 20:19 11:36 POC Glucose (mg/dL) 121 H 136 H 149 H (70-110) mg/dL CT scan - abdomen: report reviewed (See HPI for details) Assessment and Plan (1) Ileitis Narrative/Plan: 77-year-old female was transferred from [facility] for surgical consultation. Patient had presented with abdominal pain had a CT of the abdomen and pelvis reporting partial small bowel obstruction as well as ileitis and cannot rule out mass. Patient was transferred here for further surgical evaluation. She's had multiple bowel movements since, abdominal pain improved. She had a small bowel follow-through with no acute findings. Patient recently had EGD and colonoscopy done 06/01/2023 at [facility] for weight loss and anemia. Upper endoscopy with findings of mild antral gastritis, duodenitis, class C erosive esophagitis and colonoscopy significant for grade 2 internal hemorrhoids and multiple colon polyps status post polypectomy. Report states of visualization from rectum to cecum with no mention of concern for neoplasm. Patient's symptoms improved. She denies any blood in her stool or black stool. Has had a history of chronic constipation and takes fiber daily. Recommend outpatient follow-up for ileitis and can consider outpatient endoscopy if needed. Current Visit: Yes Status: Acute Code(s): K52.9 - NONINFECTIVE GASTROENTERITIS AND COLITIS, UNSPECIFIED SNOMED Code(s): 83330900 (2) Partial small bowel obstruction Current Visit: Yes Status: Acute Code(s): K56.600 - PARTIAL INTESTINAL OBS TRUCTION, UNSPECIFIED TO CAUSE SNOMED Code(s): 113742008 (3) Chronic constipation Current Visit: Yes Status: Acute Code(s): K59.09 - OTHER CONSTIPATION SNOMED Code(s): 959768628 Plan: 1. Continue symptomatic supportive care 2. Liquid diet, nothing by mouth after midnight 3. Bowel prep this afternoon 4. Plan for colonoscopy tomorrow 5. Discussed with patient importance of regular bowel regimen, discussed Junior aLAX daily to twice a day Thank you for this consultation. Further recommendations forthcoming. Dr. Shiv Richter I agree with the dictator's note, documented as a scribe by Macey Badillo.
--- NOTE | 2023-06-16 12:55 | P.PN ---
Subjective Progress Note Date: 06/16/23 CHIEF COMPLAINT: Abdominal HISTORY OF PRESENT ILLNESS: Patient reports that her abdominal pain has improv ed. She did have a small liquidy blackish colored stool yesterday after the lactulose. She reports that she has been taking oral iron at home. Denies any nausea vomiting. Requesting more to eat. She had a small bowel follow-through x-ray reports no obstruction. Ileus beginning at the proximal ileum may be present. No ileal mass noted. Afebrile. Patient's EGD and colonoscopy on 06/01/2023 from [place] by Dr. Carr results and she'll grade 2 hiatal hernia, antral gastritis, duodenitis at the duodenal bulb, class C erosive esophagitis and polyps with snare polypectomy. PHYSICAL EXAM: VITAL SIGNS: Reviewed. GENERAL: Well-developed in no acute distress. ABDOMEN: Soft. Nondistended. Nontender NEUROLOGIC: Alert and oriented. Cranial nerves II through XII grossly intact. ASSESSMENT: 1. Partial small bowel obstruction resolved 2. Cholelithiasis 3. Small hiatal hernia 4. Irregular appearance of the terminal ileum with possible underlying mass noted on CT. No mass noted on small bowel follow-through PLAN: -No plans for endoscopy. Patient just had recent EGD and colonoscopy 2 weeks ago -Advance diet to regular -Patient can be discharged from surgical standpoint -Continue a good bowel regimen Physician Workforce Development Specialist note has been reviewed by physician. Signing provider agrees with the documented findings, assessment, and plan of care. Objective - Vital Signs Vital signs: Vital Signs Temp 98.7 F 06/16/23 06:50 Pulse 78 06/16/23 06:50 Resp 18 06/16/23 06:50 BP 116/72 06/16/23 06:50 Pulse Ox 99 06/16/23 06:50 FiO2 Intake & Output 06/15/23 06/16/23 06/16/23 18:59 06:59 18:59 Weight 84.822 kg Other: Voiding Method Toilet # Voids 2 4 1 # Bowel Movements 1 - Labs CBC & Chem 7: 06/15/23 06:20 06/15/23 06:20 Labs: Abnormal Lab Results - Last 24 Hours (Table) 06/15/23 06/15/23 06/15/23 Range/Units 06:20 06:20 11:36 RBC 3.69 L (4.10-5.20) X 10*6/uL Hgb 8.7 L (12.0-15.0) d/dL Hct 30.2 L (37.2-46.3) % MCH 23.6 L (27.0-32.0) pg MCHC 28.8 L (32.0-37.0) d/dL RDW 24.7 H (11.5-14.5) % POC Glucose (mg/dL) 144 H (70-110) mg/dL Total Protein 4.9 L (6.2-8.2) d/dL Albumin 3.3 L (3.8-4.9) d/dL 06/15/23 06/15/23 Range/Units 17:00 20:19 RBC (4.10-5.20) X 10*6/uL Hgb (12.0-15.0) d/dL Hct (37.2-46.3) % MCH (27.0-32.0) pg MCHC (32.0-37.0) d/dL RDW (11.5-14.5) % POC Glucose (mg/dL) 121 H 136 H (70-110) mg/dL Total Protein (6.2-8.2) d/dL Albumin (3.8-4.9) d/dL
--- NOTE | 2023-06-16 13:41 | P.PN ---
Progress Note - Text Progress Note Date: 06/16/23 This a 77-year-old female who is transferred from outside hospital. Patient points of abdominal pain nausea. The outside facility perform a CAT scan which showed possible partial small bowel charge. 06/13. Patient seen and examined. Lab work showed WBC 7.62, hemoglobin 9.2, platelet count 232. States pain is improved. Denies any nausea 06/14. Patient seen and examined.CT abdominal and pelvis done showed irregular periods the terminal ileum with possible underlying mass. Findings resulting in partial small bowel obstruction. Surgery planning colonoscopy later in the week June 15: I assumed care of the patient today. Patient's had no bowel movement for last 1 week. Very small amount of flatus. Has had intermittent upper abdominal pain. Not related to food. Decreased appetite. I did order a small bowel follow-through. Found to have small bowel mildly diffusely prominent. No filling defect reported.-Delayed transit time. We'll get a GI consultation also. Patient been placed in a full liquid diet per surgery. There is no white count, no fever. DC antibiotics. June 16: Patient seen earlier by Dr. Reinoso. He didn't fast diet. Patient still has some tenderness on deep palpation. I'm concerned about the computed tomography scan findings and given her clinical history. Consult GI. GI is planning to proceed with a colonoscopy tomorrow. Active Medications Amlodipine Besylate (Amlodipine 5 Mg Tab) 5 mg PO DAILY [facility] Last Admin: 06/16/23 08:25 Dose: 5 mg Atorvastatin Calcium (Atorvastatin 20 Mg Tab) 20 mg PO HS [facility] Last Admin: 06/15/23 20:12 Dose: 20 mg Cyanocobalamin (Cyanocobalamin 500 Mcg Tab) 1,000 mcg PO DAILY [facility] Last Admin: 06/16/23 08:25 Dose: 1,000 mcg Enoxaparin Sodium (Enoxaparin 40 Mg/0.4 Ml Syringe) 40 mg SQ DAILY [facility] Last Admin: 06/16/23 08:25 Dose: 40 mg Famotidine (Famotidine 20 Mg Tab) 20 mg PO BID [facility] Last Admin: 06/16/23 08:25 Dose: 20 mg Hydromorphone HCl (Hydromorphone 0.5 Mg/0.5 Ml Syringe) 0.5 mg IVP Q4H PRN PRN Reason: Severe Pain (Scale 7 to 10) Last Admin: 06/15/23 06:31 Dose: 0.5 mg Metronidazole 500 mg/ IV (Solution) 100 mls @ 100 mls/hr IVPB Q12HR [facility]; Protocol Last Admin: 06/16/23 08:25 Dose: 100 mls/hr Insulin Aspart (Insulin Aspart (Novolog) 100 Unit/Ml Vial) 0 unit SQ ACHS [facility]; Protocol Last Admin: 06/16/23 11:45 Dose: Not Given Ondansetron HCl (Ondansetron 4 Mg/2 Ml Vial) 4 mg IVP Q6HR PRN PRN Reason: Nausea And Vomiting Last Admin: 06/15/23 20:28 Dose: 4 mg Polyethylene Glycol/Electrolytes (Peg 3350 (236 Gm/Btl) + Lytes 4,000 Ml Bottle) 4,000 ml PO ONCE ONE Stop: 06/16/23 16:01 On examination: VITAL SIGNS: [99.9, 91, 18, 116/71, 99% room air GENERAL APPEARANCE: Laying in bed, not in distress HEENT: Normal external appearance of nose and ear. Oral cavity normal EYES: Pupils equal. Conjunctiva normal. NECK: JVD not raised. Mass not palpable. RESPIRATORY: Respiratory effort normal. Lungs clear to auscultation. CARDIOVASCULAR: First and second sounds normal. No edema. ABDOMEN: Soft. Liver and spleen not palpable. Mid and upper abdomen tenderness.- Central. No mass palpable. No guarding rigidity PSYCHIATRY: Alert and oriented x3. Mood and affect normal. INVESTIGATIONS, reviewed in the clinical context: Small bowel follow-through:small bowel mildly diffusely prominent. No filling defect reported.-Delayed transit time. CT abdomen pelvis: Irregular appearance of the terminal ileum with possible underlying mass. Appreciated on the prior exam. Some ingestion miss entry enlarged lymph node. Gallstones. Assessment and plan: - Abdominal pain. No bowel movement for last 1 week. Computed tomography scan small bowel through results noted. Patient did have a colonoscopy recently. In [place].: Not improving. Concern for underlying malignancy remains. Dr. Reinoso saw the patient from general surgery. No further plan per him. Dr. Shiv Richter from GI consulted.-For colonoscopy tomorrow. No fever no white count. Antibiotics discontinued -Diabetes mellitus type 2, on oral hypoglycemic Follow Accu-Cheks and sliding scale. Hold Glucophage. -Essential hypertension Zestoretic. -Hyperlipidemia Lipitor Plan for colonoscopy tomorrow per GI.
[2023-06-16] MEDS ORDERED: PEG 3350 (236 GM/BTL) + LYTES 4,000 ML BOTTLE PO ONE (16:00)
[2023-06-16 17:05] LABS: Glucose,Whole Blood 119 mg/dL (70-110)
[2023-06-16] MEDS: ATORVASTATIN 20 MG TAB PO SCH (19:52)
[2023-06-16] MEDS: ONDANSETRON 4 MG/2 ML VIAL IVP PRN (19:52)
[2023-06-16 20:39] LABS: Glucose,Whole Blood 123 mg/dL (70-110)
[2023-06-17 07:00] LABS: Glucose,Whole Blood 113 mg/dL (70-110)
[2023-06-17] MEDS: INSULIN ASPART (NovoLOG) 100 UNIT/ML VIAL SQ SCH ×4 (07:09→21:53)
[2023-06-17] MEDS: ENOXAPARIN 40 MG/0.4 ML SYRINGE SQ SCH (07:42)
[2023-06-17] MEDS: CYANOCOBALAMIN 500 MCG TAB PO SCH (08:12)
[2023-06-17] MEDS: amLODIPine 5 MG TAB PO SCH (08:12)
[2023-06-17] MEDS: FAMOTIDINE 20 MG TAB PO SCH ×2 (08:12→21:51)
[2023-06-17] MEDS: metroNIDAZOLE-NS PMX 500 MG in SALINE 1 100ML.BAG IVPB SCH ×2 (08:13→21:53)
[2023-06-17] MEDS: ONDANSETRON 4 MG/2 ML VIAL IVP PRN (09:36)
--- NOTE | 2023-06-17 11:02 | P.PN ---
Subjective Progress Note Date: 06/17/23 CHIEF COMPLAINT: Abdominal HISTORY OF PRESENT ILLNESS: Patient is lying in bed. She is scheduled for col onoscopy with the GI service today. She has no new complaints. Afebrile. CEA level pending Patient seen with Dr. nair PHYSICAL EXAM: VITAL SIGNS: Reviewed. GENERAL: Well-developed in no acute distress. ABDOMEN: Soft. Nondistended. ASSESSMENT: 1. Partial small bowel obstruction resolved 2. Cholelithiasis 3. Small hiatal hernia 4. Irregular appearance of the terminal ileum with possible underlying mass noted on CT. No mass noted on small bowel follow-through PLAN: -Patient scheduled for colonoscopy today with GI service -Patient can be discharged from surgical standpoint when medically cleared Physician Bank Appraiser note has been reviewed by physician. Signing provider agrees with the documented findings, assessment, and plan of care. Objective - Vital Signs Vital signs: Vital Signs Temp 98.9 F 06/17/23 06:53 Pulse 88 06/17/23 06:53 Resp 18 06/17/23 06:53 BP 135/80 06/17/23 06:53 Pulse Ox 99 06/17/23 06:53 FiO2 Intake & Output 06/16/23 06/17/23 06/17/23 18:59 06:59 18:59 Intake Total 1080 Balance 1080 Intake: Oral 1080 Other: Voiding Method Toilet # Voids 3 3 1 # Bowel Movements 1 4 1 - Labs CBC & Chem 7: 06/15/23 06:20 06/15/23 06:20 Labs: Abnormal Lab Results - Last 24 Hours (Table) 06/16/23 06/16/23 06/16/23 Range/Units 11:36 17:03 20:37 POC Glucose (mg/dL) 149 H 119 H 123 H (70-110) mg/dL 06/17/23 Range/Units 06:59 POC Glucose (mg/dL) 113 H (70-110) mg/dL
[2023-06-17 11:51] LABS: Glucose,Whole Blood 135 mg/dL (70-110)
[2023-06-17] MEDS ORDERED: PROPOFOL 10 MG/ML 20 ML VIAL IV ONE (13:18)
[2023-06-17] MEDS ORDERED: LIDOCAINE 1% INJ 10MG/ML (20 ML MDV) ONE (13:18)
[2023-06-17] MEDS ORDERED: LACTATED RINGERS 1,000 ML IV ONE (13:25)
--- NOTE | 2023-06-17 13:50 | P.PCN ---
Date of Procedure: 06/17/23 Procedure(s) Performed: BRIEF HISTORY: Patient is a 77-year-old pleasant white female admitted hospital with small bowel obstruction was treated conservatively. At the time of admission to hospital because she had a CT of the abdomen and pelvis done that showed mass in the right lower quadrant area possible terminal ileum was cecum. Patient stated that she had a colonoscopy to weeks ago at [facility] revealed small colon polyps. Because of the concern of abnormal CAT scan she is scheduled for colonoscopy during this hospitalization. PROCEDURE PERFORMED: Colonoscopy up to hepatic flexure.. PREOPERATIVE DIAGNOSIS: Abnormal CAT scan showing mass in the terminal ileum. IV sedation per Anesthesia. PROCEDURE: After informed consent was obtained, the patient, was brought into the endoscopy unit. IV sedation was administered by Anesthesia under continuous monitoring. Digital rectal examination was normal. Initially the Olympus CF-160 flexible video colonoscope was then inserted in the rectum, gradually advanced into the hepatic flexure at this time the patient started coughing and was desaturating and because of clinical concern of aspiration the procedure was aborted as per anesthesia recommendations. Mucosa of the visualized portions of the mucosa transverse colon, descending colon, sigmoid colon, and rectum appeared normal. The patient will be sent back to the floor with close monitoring. IMPRESSION: Normal-appearing colon from rectum to hepatic flexure and the pr ocedure was aborted because of concern significant aspiration. RECOMMENDATIONS: Findings of this examination were discussed with the patient . Because of concern of aspiration during the procedure , and as per anesthesia recommendations the procedure was aborted.. She will be rescheduled for colonoscopy at a later date
--- NOTE | 2023-06-17 14:09 | XR ---
EXAMINATION TYPE: XR chest 1V portable DATE OF EXAM: 06/17/2023 COMPARISON: NONE HISTORY: Vomiting TECHNIQUE: Single frontal view of the chest is obtained. FINDINGS: There is no focal air space opacity, pleural effusion, or pneumothorax seen. The cardiac silhouette size is within normal limits. The osseous structures are intact. A bilateral arthropathy of the shoulders with diffuse osteopenia. Hypertrophic and degenerative changes spine. Atherosclerot ic change aorta. IMPRESSION: No acute process.
[2023-06-17 17:08] LABS: Glucose,Whole Blood 107 mg/dL (70-110)
--- NOTE | 2023-06-17 20:36 | P.PN ---
Progress Note - Text Progress Note Date: 06/17/23 This a 77-year-old female who is transferred from outside hospital. Patient points of abdominal pain nausea. The outside facility perform a CAT scan which showed possible partial small bowel charge. 06/13. Patient seen and examined. Lab work showed WBC 7.62, hemoglobin 9.2, platelet count 232. States pain is improved. Denies any nausea 06/14. Patient seen and examined.CT abdominal and pelvis done showed irregular periods the terminal ileum with possible underlying mass. Findings resulting in partial small bowel obstruction. Surgery planning colonoscopy later in the week June 15: I assumed care of the patient today. Patient's had no bowel movement for last 1 week. Very small amount of flatus. Has had intermittent upper abdominal pain. Not related to food. Decreased appetite. I did order a small bowel follow-through. Found to have small bowel mildly diffusely prominent. No filling defect reported.-Delayed transit time. We'll get a GI consultation also. Patient been placed in a full liquid diet per surgery. There is no white count, no fever. DC antibiotics. June 16: Patient seen earlier by Dr. Reinoso. He didn't fast diet. Patient still has some tenderness on deep palpation. I'm concerned about the computed tomography scan findings and given her clinical history. Consult GI. GI is planning to proceed with a colonoscopy tomorrow. June 17: Patient seen by me before procedure this morning. During the procedure patient underwent aspiration. Procedure to be abandoned. Discussed with Dr. Shiv Richter. Depending on how the patient is doing well in the facet endoscopy next 24-48 hours. Active Medications Amlodipine Besylate (Amlodipine 5 Mg Tab) 5 mg PO DAILY [facility] Last Admin: 06/17/23 08:12 Dose: 5 mg Atorvastatin Calcium (Atorvastatin 20 Mg Tab) 20 mg PO HS [facility] Last Admin: 06/16/23 19:52 Dose: 20 mg Cyanocobalamin (Cyanocobalamin 500 Mcg Tab) 1,000 mcg PO DAILY [facility] Last Admin: 06/17/23 08:12 Dose: 1,000 mcg Enoxaparin Sodium (Enoxaparin 40 Mg/0.4 Ml Syringe) 40 mg SQ DAILY [facility] Last Admin: 06/17/23 07:42 Dose: Not Given Famotidine (Famotidine 20 Mg Tab) 20 mg PO BID [facility] Last Admin: 06/17/23 08:12 Dose: 20 mg Hydromorphone HCl (Hydromorphone 0.5 Mg/0.5 Ml Syringe) 0.5 mg IVP Q4H PRN PRN Reason: Severe Pain (Scale 7 to 10) Last Admin: 06/15/23 06:31 Dose: 0.5 mg Metronidazole 500 mg/ IV (Solution) 100 mls @ 100 mls/hr IVPB Q12HR [facility]; Protocol Last Admin: 06/17/23 08:13 Dose: 100 mls/hr Insulin Aspart (Insulin Aspart (Novolog) 100 Unit/Ml Vial) 0 unit SQ ACHS [facility]; Protocol Last Admin: 06/17/23 17:09 Dose: Not Given Ondansetron HCl (Ondansetron 4 Mg/2 Ml Vial) 4 mg IVP Q6HR PRN PRN Reason: Nausea And Vomiting Last Admin: 06/17/23 09:36 Dose: 4 mg On examination: VITAL SIGNS: 98.7, 87, 16, 130/75, 99% room air GENERAL APPEARANCE: Laying in bed, not in distress HEENT: Normal external appearance of nose and ear. Oral cavity normal EYES: Pupils equal. Conjunctiva normal. NECK: JVD not raised. Mass not palpable. RESPIRATORY: Respiratory effort normal. Lungs clear to auscultation. CARDIOVASCULAR: First and second sounds normal. No edema. ABDOMEN: Soft. Liver and spleen not palpable. Mid and upper abdomen tenderness.- Central. No mass palpable. No guarding rigidity PSYCHIATRY: Alert and oriented x3. Mood and affect normal. INVESTIGATIONS, reviewed in the clinical context: Small bowel follow-through:small bowel mildly diffusely prominent. No filling defect reported.-Delayed transit time. CT abdomen pelvis: Irregular appearance of the terminal ileum with possible underlying mass. Appreciated on the prior exam. Some ingestion miss entry enlarged lymph node. Gallstones. Assessment and plan: - Abdominal pain. No bowel movement for last 1 week. Computed tomography scan small bowel through results noted. Patient did have a colonoscopy recently. In [place] Not improving. Concern for underlying malignancy remains. Dr. Reinoso saw the patient from general surgery. No further plan per him. Dr. Shiv Richter following. Colonoscopy recommended half a as patient aspirated.. No fever no white count. Antibiotics discontinued -Aspiration during colonoscopy. This may result in chemical pneumonitis. Patient has no fever. Good pulse ox -Diabetes mellitus type 2, on oral hypoglycemic Follow Accu-Cheks and sliding scale. Hold Glucophage. -Essential hypertension Zestoretic. -Hyperlipidemia Lipitor Follow closely. Depending on clinical course will plan for colonoscopy on Thursday.
[2023-06-17 20:37] LABS: Glucose,Whole Blood 95 mg/dL (70-110)
[2023-06-17] MEDS: ATORVASTATIN 20 MG TAB PO SCH (21:51)
[2023-06-18 06:48] LABS: Anisocytosis Moderate; Basophils % (A) 0 %; Eosinophils # (A) 0.1 k/uL (0-0.7); Eosinophils % (A) 2 %; HCT 29.1 % (34.0-46.0); HGB 9.1 gm/dL (11.4-16.0); Hypochromasia Moderate; Lymphocytes # (A) 1.4 k/uL (1.0-4.8); Lymphocytes % (A) 28 %; MCHC 31.2 g/dL (31.0-37.0); MCV 80.1 fL (80.0-100.0); Mean Platelet Volume 8.1; Microcytosis Moderate; Monocytes # (A) 0.3 k/uL (0-1.0); Monocytes % (A) 7 %; Neutrophils % (A) 62 %; Platelet Count 202 k/uL (150-450); RBC 3.63 m/uL (3.80-5.40); RDW 21.9 % (11.5-15.5); WBC 4.9 k/uL (3.8-10.6)
[2023-06-18 07:02] LABS: Glucose,Whole Blood 104 mg/dL (70-110)
[2023-06-18 07:17] LABS: African American GFR (CKD) >90 (>60 ml/min/1.73 sqM); Anion Gap 8 mmol/L; Blood Urea Nitrogen 4 mg/dL (7-17); Calcium 8.4 mg/dL (8.4-10.2); Carbon Dioxide 22 mmol/L (22-30); Chloride 106 mmol/L (98-107); Glucose 79 mg/dL (74-99); Non-African American GFR(CKD) >90 (>60 ml/min/1.73 sqM); Potassium 3.5 mmol/L (3.5-5.1); Sodium 136 mmol/L (137-145)
[2023-06-18] MEDS: INSULIN ASPART (NovoLOG) 100 UNIT/ML VIAL SQ SCH ×4 (08:07→20:12)
[2023-06-18] MEDS: amLODIPine 5 MG TAB PO SCH (08:08)
[2023-06-18] MEDS: FAMOTIDINE 20 MG TAB PO SCH ×2 (08:08→20:10)
[2023-06-18] MEDS: CYANOCOBALAMIN 500 MCG TAB PO SCH (08:08)
[2023-06-18] MEDS: ENOXAPARIN 40 MG/0.4 ML SYRINGE SQ SCH (08:08)
[2023-06-18] MEDS: metroNIDAZOLE-NS PMX 500 MG in SALINE 1 100ML.BAG IVPB SCH ×2 (10:51→20:12)
--- NOTE | 2023-06-18 11:10 | P.PN ---
Subjective Progress Note Date: 06/18/23 Principal diagnosis: Ileitis This is a pleasant 77-year-old female who was transferred from [facility] for small bowel obstruction. Patient states she is having some abdominal pain since about 2-3 days following her colonoscopy done on 06/01/2023. Pain had gotten worse, she became constipated and was having nausea and vomiting. She had a CT of the abdomen and pelvis at [facility] reporting small bowel obstruction and ileitis. She has a past medical history including chronic constipation, anemia, diabetes mellitus, hyperlipidemia and hypertension. She reports abdominal pain improved, she's had multiple bowel movements and she came here to the hospital. Gen. surgery has been following. She had a CT of the abdomen and pelvis at this facility reporting similar findings from one day prior with irregular appearance of the terminal ileum with possible underlying mass better appreciated on prior exam. Findings result in partial small bowel obstruction. Oral contrast flowing stents to the jejunum. There may be mildly increased dilation compared to prior exam. Some adjacent mesentery enlarged lymph nodes which could be reactive versus neoplastic if there is underlying mass. Similar pulmonary nodules, short-term follow-up in six-month recommended. Cholelithiasis, small hiatal hernia and moderate coronary artery arthrosclerosis. She also underwent upper GI series reporting no obstruction. Some ileus beginning at the proximal ileum may be present. No ileal mass radiographically apparent small bowel follow-through. She denies any nausea or vomiting. She is been advanced to full liquid diet. States she has had multiple loose bowel movements. Patient recently had a EGD and colonoscopy with Dr. Carr on 06/01/2023 for weight loss and anemia. Patient states she weighed 240 pounds and now is at 187 however states she's not eating as much because she has no bottom teeth. She was told from her PCP that she was anemic she denies any blood in her stool or black stool. She does take Mobic regularly she denies any anticoagulation. Report from [facility] shows EGD colonoscopy done on 06/01/2023 with EGD findings of mild antral gastritis, duodenitis and class C erosive esophagitis. Colonoscopy reported grade 2 internal hemorrhoids and multiple colon polyps status post polypectomy. Biopsy results show small bowel mucosa nonspecific chronic inflammation, gastric antrum moderate active chronic inflammation and GE junction with minimal reflux and minimal inflammation. Colon polyp fragment was stool. 06/18/2023 Patient seen and examined today as a follow-up. Yesterday she underwent colonoscopy which had to be aborted due to aspiration. Today she states she has a little bit of back pain, no shortness of breath chest pain or difficulty breathing. Chest x-ray yesterday showed no acute process. She is without any other complaints at this time. Denies abdominal pain, does have some nausea but no vomiting. WBC 4.9 Hemoglobin 9.1 platelet count 202,000 Objective - Vital Signs Vital signs: Vital Signs Temp 98.7 F 06/18/23 07:45 Pulse 84 06/18/23 07:45 Resp 14 06/18/23 07:45 BP 113/66 06/18/23 07:45 Pulse Ox 97 06/18/23 07:45 FiO2 Intake & Output 06/17/23 06/18/23 06/18/23 18:59 06:59 18:59 Intake Total 400 Balance 400 Weight 84.822 kg Intake: IV 400 Other: Voiding Method Toilet # Voids 1 # Bowel Movements 1 - Exam General appearance: The patient is alert, oriented, appears in no acute distress. HET: Head is normocephalic and atraumatic. Conjunctiva pink. Sclera anicteric. Neck: Supple without lymphadenopathy. Trachea midline. Heart: Regular. Lungs: Equal expansion, normal respiratory effort. Lungs clear to auscultation bilaterally. Abdomen: Soft, nontender, nondistended with bowel sounds. No guarding or rigidity. Skin: No rashes. No jaundice. Extremities: Normal skin color and turgor. No pedal edema. Neurological: No focal deficits. Alert and oriented x3. - Labs CBC & Chem 7: 06/18/23 05:51 06/18/23 05:51 Labs: Abnormal Lab Results - Last 24 Hours (Table) 06/17/23 06/18/23 06/18/23 Range/Units 11:49 05:51 05:51 RBC 3.63 L (3.80-5.40) m/uL Hgb 9.1 L (11.4-16.0) gm/dL Hct 29.1 L (34.0-46.0) % RDW 21.9 H (11.5-15.5) % Sodium 136 L (137-145) mmol/L BUN 4 L (7-17) mg/dL POC Glucose (mg/dL) 135 H (70-110) mg/dL Assessment and Plan (1) Ileitis Narrative/Plan: 77-year-old female was transferred from [facility] for surgical consultation. Patient had presented with abdominal pain had a CT of the abdomen and pelvis reporting partial small bowel obstruction as well as ileitis and cannot rule out mass. Patient was transferred here for further surgical evaluation. She's had multiple bowel movements since, abdominal pain improved. She had a small bowel follow-through with no acute findings. Patient recently had EGD and colonoscopy done 06/01/2023 at [facility] for weight loss and anemia. Upper endoscopy with findings of mild antral gastritis, duodenitis, class C erosive esophagitis and colonoscopy significant for grade 2 internal hemorrhoids and multiple colon polyps status post polypectomy. Report states of visualization from rectum to cecum with no mention of concern for neoplasm. Patient's symptoms improved. She denies any blood in her stool or black stool. Has had a history of chronic constipation and takes fiber daily. Recommend outpatient follow-up for ileitis and can consider outpatient endoscopy if needed. Colonoscopy attempted yesterday, patient did aspirate and colonoscopy was aborted. We'll plan for repeat colonoscopy tomorrow. Patient was medically c leared. Current Visit: Yes Status: Acute Code(s): K52.9 - NONINFECTIVE GASTROENTERITIS AND COLITIS, UNSPECIFIED SNOMED Code(s): 68013169 (2) Partial small bowel obstruction Current Visit: Yes Status: Acute Code(s): K56.600 - PARTIAL INTESTINAL OBSTRUCTION, UNSPECIFIED TO CAUSE SNOMED Code(s): 137609825 (3) Chronic constipation Current Visit: Yes Status: Acute Code(s): K59.09 - OTHER CONSTIPATION SNOMED Code(s): 231703305 Plan: 1. Continue symptomatic supportive care 2. Clear Liquid diet, nothing by mouth after midnight 3. Magnesium citrate this evening 4. Medical clearance obtained by primary medical team 5. Plan for colonoscopy tomorrow morning Thank you for this consultation. Further recommendations forthcoming. Dr. Shiv Richter I agree with the dictator's note, documented as a scribe by Macey Badillo.
[2023-06-18 11:51] LABS: Glucose,Whole Blood 97 mg/dL (70-110)
--- NOTE | 2023-06-18 11:56 | P.PN ---
Subjective Progress Note Date: 06/18/23 CHIEF COMPLAINT: Abdominal HISTORY OF PRESENT ILLNESS: Patient is sitting up in bed comfortably. The col onoscopy yesterday reports rectum to hepatic flexure was normal and procedure was aborted because of risk of aspiration. Patient is rescheduled for colonoscopy tomorrow. Afebrile. WBC is 4.9 HgB 9.1 CEA pending Patient seen with Dr. nair PHYSICAL EXAM: VITAL SIGNS: Reviewed. GENERAL: Well-developed in no acute distress. ABDOMEN: Soft. Nondistended. ASSESSMENT: 1. Partial small bowel obstruction resolved 2. Cholelithiasis 3. Small hiatal hernia 4. Irregular appearance of the terminal ileum with possible underlying mass noted on CT. No mass noted on small bowel follow-through PLAN: -Patient scheduled for colonoscopy tomorrow with GI service -Patient can be discharged from surgical standpoint when medically cleared Physician Payroll And Benefits Manager note has been reviewed by physician. Signing provider agrees with the documented findings, assessment, and plan of care. Objective - Vital Signs Vital signs: Vital Signs Temp 98.7 F 06/18/23 07:45 Pulse 84 06/18/23 07:45 Resp 14 06/18/23 07:45 BP 113/66 06/18/23 07:45 Pulse Ox 97 06/18/23 07:45 FiO2 Intake & Output 06/17/23 06/18/23 06/18/23 18:59 06:59 18:59 Intake Total 400 Balance 400 Weight 84.822 kg Intake: IV 400 Other: Voiding Method Toilet # Voids 1 # Bowel Movements 1 - Labs CBC & Chem 7: 06/18/23 05:51 06/18/23 05:51 Labs: Abnormal Lab Results - Last 24 Hours (Table) 06/17/23 06/18/23 06/18/23 Range/Units 11:49 05:51 05:51 RBC 3.63 L (3.80-5.40) m/uL Hgb 9.1 L (11.4-16.0) gm/dL Hct 29.1 L (34.0-46.0) % RDW 21.9 H (11.5-15.5) % Sodium 136 L (137-145) mmol/L BUN 4 L (7-17) mg/dL POC Glucose (mg/dL) 135 H (70-110) mg/dL
[2023-06-18 17:14] LABS: Glucose,Whole Blood 108 mg/dL (70-110)
[2023-06-18] MEDS ORDERED: MAGNESIUM CITRATE 296 ML BOTTLE PO ONE (19:00)
[2023-06-18 19:41] LABS: Glucose,Whole Blood 135 mg/dL (70-110)
[2023-06-18] MEDS: ATORVASTATIN 20 MG TAB PO SCH (20:10)
[2023-06-18] MEDS: ACETAMINOPHEN TAB 500 MG TAB PO PRN (20:10)
--- NOTE | 2023-06-18 21:33 | P.PN ---
Progress Note - Text Progress Note Date: 06/18/23 This a 77-year-old female who is transferred from outside hospital. Patient points of abdominal pain nausea. The outside facility perform a CAT scan which showed possible partial small bowel charge. 06/13. Patient seen and examined. Lab work showed WBC 7.62, hemoglobin 9.2, platelet count 232. States pain is improved. Denies any nausea 06/14. Patient seen and examined.CT abdominal and pelvis done showed irregular periods the terminal ileum with possible underlying mass. Findings resulting in partial small bowel obstruction. Surgery planning colonoscopy later in the week June 15: I assumed care of the patient today. Patient's had no bowel movement for last 1 week. Very small amount of flatus. Has had intermittent upper abdominal pain. Not related to food. Decreased appetite. I did order a small bowel follow-through. Found to have small bowel mildly diffusely prominent. No filling defect reported.-Delayed transit time. We'll get a GI consultation also. Patient been placed in a full liquid diet per surgery. There is no white count, no fever. DC antibiotics. June 16: Patient seen earlier by Dr. Reinoso. He didn't fast diet. Patient still has some tenderness on deep palpation. I'm concerned about the computed tomography scan findings and given her clinical history. Consult GI. GI is planning to proceed with a colonoscopy tomorrow. June 17: Patient seen by me before procedure this morning. During the procedure patient underwent aspiration. Procedure to be abandoned. Discussed with Dr. Shiv Richter. Depending on how the patient is doing well in the facet endoscopy next 24-48 hours. June 18: I visited the patient last night. Doing well.. No trouble breathing. This morning sitting up in a chair. Breathing is stable. No nausea vomiting. Discussed with GI. Patient stable to proceed for endoscopy tomorrow. Medically cleared. No respiratory symptoms. Active Medications Acetaminophen (Acetaminophen Tab 500 Mg Tab) 500 mg PO Q6HR PRN PRN Reason: Fever and/ or Pain Last Admin: 06/18/23 20:10 Dose: 500 mg Amlodipine Besylate (Amlodipine 5 Mg Tab) 5 mg PO DAILY [facility] Last Admin: 06/18/23 08:08 Dose: 5 mg Atorvastatin Calcium (Atorvastatin 20 Mg Tab) 20 mg PO HS [facility] Last Admin: 06/18/23 20:10 Dose: 20 mg Cyanocobalamin (Cyanocobalamin 500 Mcg Tab) 1,000 mcg PO DAILY [facility] Last Admin: 06/18/23 08:08 Dose: 1,000 mcg Enoxaparin Sodium (Enoxaparin 40 Mg/0.4 Ml Syringe) 40 mg SQ DAILY [facility] Last Admin: 06/18/23 08:08 Dose: Not Given Famotidine (Famotidine 20 Mg Tab) 20 mg PO BID [facility] Last Admin: 06/18/23 20:10 Dose: 20 mg Hydromorphone HCl (Hydromorphone 0.5 Mg/0.5 Ml Syringe) 0.5 mg IVP Q4H PRN PRN Reason: Severe Pain (Scale 7 to 10) Last Admin: 06/15/23 06:31 Dose: 0.5 mg Metronidazole 500 mg/ IV (Solution) 100 mls @ 100 mls/hr IVPB Q12HR [facility]; Protocol Last Admin: 06/18/23 20:12 Dose: 100 mls/hr Insulin Aspart (Insulin Aspart (Novolog) 100 Unit/Ml Vial) 0 unit SQ ACHS [facility]; Protocol Last Admin: 06/18/23 20:12 Dose: Not Given Ondansetron HCl (Ondansetron 4 Mg/2 Ml Vial) 4 mg IVP Q6HR PRN PRN Reason: Nausea And Vomiting Last Admin: 06/17/23 09:36 Dose: 4 mg On examination: VITAL SIGNS: 98, 97, 18, 127/69, 99% room air GENERAL APPEARANCE: Sitting up, comfortable HEENT: Normal external appearance of nose and ear. Oral cavity normal EYES: Pupils equal. Conjunctiva normal. NECK: JVD not raised. Mass not palpable. RESPIRATORY: Respiratory effort normal. Lungs clear to auscultation. CARDIOVASCULAR: First and second sounds normal. No edema. ABDOMEN: Soft. Liver and spleen not palpable. Mid and upper abdomen tenderness.- Central. No mass palpable. No guarding rigidity PSYCHIATRY: Alert and oriented x3. Mood and affect normal. INVESTIGATIONS, reviewed in the clinical context: June 18: White count 4.9 hemoglobin 9.1 potassium 3.5 creatinine 0.5 to Small bowel follow-through:small bowel mildly diffusely prominent. No filling defect reported.-Delayed transit time. CT abdomen pelvis: Irregular appearance of the terminal ileum with possible underlying mass. Appreciated on the prior exam. Some ingestion miss entry enlarged lymph node. Gallstones. Assessment and plan: - Abdominal pain. No bowel movement for last 1 week. Computed tomography scan small bowel through results noted. Patient did have a colonoscopy recently. In [place].: Not improving. Concern for underlying malignancy remains. Dr. Reinoso saw the patient from general surgery. No further plan per him. Dr. Shiv Richter following. Colonoscopy abandoned half way, as patient aspirated.- June 17. Patient remained stable. Proceed for repeat colonoscopy on Thursday -Aspiration during colonoscopy. no fever. Good pulse ox: Doing well -Diabetes mellitus type 2, on oral hypoglycemic Follow Accu-Cheks and sliding scale. Hold Glucophage. -Essential hypertension Zestoretic. -Hyperlipidemia Lipitor Discussed with patient and GI Dr. Shiv Richter. Stable to proceed for colonoscopy tomorrow. Medically cleared.
[2023-06-19] MEDS ORDERED: PROPOFOL 10 MG/ML 20 ML VIAL IV ONE (07:02)
[2023-06-19] MEDS ORDERED: LACTATED RINGERS 500 ML IV ONE (07:24)
--- NOTE | 2023-06-19 07:27 | P.PCN ---
Date of Procedure: 06/19/23 Procedure(s) Performed: BRIEF HISTORY: Patient is a 77-year-old pleasant white female admitted hospital with small bowel obstruction that was treated conservatively and resolved. The CAT scan of abdomen and pelvis revealed masslike lesion in the cecum/terminal ileum and she is hence scheduled for colonoscopy to evaluate further. The patient had a colonoscopy about 2 weeks ago at [facility] and according to her revealed small polyps. She had an attempt at colonoscopy 2 days ago but during the procedure she had aspiration and the procedure had to be aborted. She is rescheduled for colonoscopy today. PROCEDURE PERFORMED: Colonoscopy with biopsy and tattooing with Rosa ink. PREOPERATIVE DIAGNOSIS: Recent small bowel obstruction/abnormal CAT scan showing suspicious lesion in the terminal ileum/cecum. IV sedation per Anesthesia. PROCEDURE: After informed consent was obtained, the patient, was brought into the endoscopy unit. IV sedation was administered by Anesthesia under continuous monitoring. Digital rectal examination was normal. Initially the Olympus CF-160 flexible video colonoscope was then inserted in the rectum, gradually advanced into the cecum without any difficulty. Careful examination was performed as the scope was gradually being withdrawn. Ileocecal valve and the appendiceal orifice were visualized and appeared normal. Prep was excellent. There was a circumferential ulcerated mass involving the ileocecal valve and the proximal cecum with some luminal narrowing status post multiple biopsies followed by tattooing with Rosa ink. Mucosa ascending colon, transverse colon, descending colon, sigmoid colon, and rectum appeared normal. Retroflexion was performed in the rectum and no lesions were seen. The patient tolerated the procedure well. 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 At this time will await biopsy results. Keep her nothing by mouth. Will discuss with Dr. Reinoso regarding surgical intervention..
[2023-06-19 07:53] LABS: Glucose,Whole Blood 99 mg/dL (70-110)
[2023-06-19] MEDS: INSULIN ASPART (NovoLOG) 100 UNIT/ML VIAL SQ SCH ×4 (07:57→20:25)
[2023-06-19] MEDS: CYANOCOBALAMIN 500 MCG TAB PO SCH (09:26)
[2023-06-19] MEDS: ENOXAPARIN 40 MG/0.4 ML SYRINGE SQ SCH (09:26)
[2023-06-19] MEDS: amLODIPine 5 MG TAB PO SCH (09:26)
[2023-06-19] MEDS: FAMOTIDINE 20 MG TAB PO SCH ×2 (09:27→20:25)
[2023-06-19] MEDS: metroNIDAZOLE-NS PMX 500 MG in SALINE 1 100ML.BAG IVPB SCH ×2 (09:33→20:24)
[2023-06-19 11:30] LABS: Glucose,Whole Blood 108 mg/dL (70-110)
--- NOTE | 2023-06-19 11:31 | P.PN ---
Subjective Progress Note Date: 06/19/23 CHIEF COMPLAINT: Abdominal HISTORY OF PRESENT ILLNESS: Patient had repeat colonoscopy this morning with GI service. Results had shown circumferential ulcerated mass involving the proximal cecum by the ileocecal valve. Dr. Richter did notify Dr. Nair of the findings. And patient is scheduled for right colectomy on Thursday. Patient lying in bed comfortably. No pain reported. Afebrile. CEA pending Patient seen with Dr. nair PHYSICAL EXAM: VITAL SIGNS: Reviewed. GENERAL: Well-developed in no acute distress. ABDOMEN: Soft. Nondistended. ASSESSMENT: 1. Cecal mass 2. Incidental finding of Cholelithiasis on CT 3. Small hiatal hernia PLAN: -Patient scheduled for right colectomy on 06/22/[address] Nair -Continue clear liquid diet through the weekend -Continue supportive care -Encouraged patient to ambulate Physician Housekeeper/Laundry Assistant note has been reviewed by physician. Signing provider agrees with the documented findings, assessment, and plan of care. Objective - Vital Signs Vital signs: Vital Signs Temp 98.7 F 06/19/23 08:00 Pulse 84 06/19/23 08:00 Resp 15 06/19/23 08:00 BP 131/69 06/19/23 08:00 Pulse Ox 97 06/19/23 08:00 FiO2 Intake & Output 06/18/23 06/19/23 06/19/23 18:59 06:59 18:59 Intake Total 100 200 Balance 100 200 Intake: IV 200 Intake, IV Titration 100 Amount metroNIDAZOLE-NS PMX 500 100 mg In Saline 1 100ml.bag @ 100 mls/hr IVPB Q12HR [facility] Rx#:[id number] Other: Voiding Method Toilet Toilet # Voids 2 # Bowel Movements 4 - Labs CBC & Chem 7: 06/18/23 05:51 06/18/23 05:51 Labs: Abnormal Lab Results - Last 24 Hours (Table) 06/18/23 Range/Units 19:40 POC Glucose (mg/dL) 135 H (70-110) mg/dL
--- NOTE | 2023-06-19 15:49 | P.PN ---
Progress Note - Text Progress Note Date: 06/19/23 This a 77-year-old female who is transferred from outside hospital. Patient points of abdominal pain nausea. The outside facility perform a CAT scan which showed possible partial small bowel charge. 06/13. Patient seen and examined. Lab work showed WBC 7.62, hemoglobin 9.2, platelet count 232. States pain is improved. Denies any nausea 06/14. Patient seen and examined.CT abdominal and pelvis done showed irregular periods the terminal ileum with possible underlying mass. Findings resulting in partial small bowel obstruction. Surgery planning colonoscopy later in the week June 15: I assumed care of the patient today. Patient's had no bowel movement for last 1 week. Very small amount of flatus. Has had intermittent upper abdominal pain. Not related to food. Decreased appetite. I did order a small bowel follow-through. Found to have small bowel mildly diffusely prominent. No filling defect reported.-Delayed transit time. We'll get a GI consultation also. Patient been placed in a full liquid diet per surgery. There is no white count, no fever. DC antibiotics. June 16: Patient seen earlier by Dr. Reinoso. He didn't fast diet. Patient still has some tenderness on deep palpation. I'm concerned about the computed tomography scan findings and given her clinical history. Consult GI. GI is planning to proceed with a colonoscopy tomorrow. June 17: Patient seen by me before procedure this morning. During the procedure patient underwent aspiration. Procedure to be abandoned. Discussed with Dr. Shiv Richter. Depending on how the patient is doing well in the facet endoscopy next 24-48 hours. June 18: I visited the patient last night. Doing well.. No trouble breathing. This morning sitting up in a chair. Breathing is stable. No nausea vomiting. Discussed with GI. Patient stable to proceed for endoscopy tomorrow. Medically cleared. No respiratory symptoms. June 19: This morning patient underwent colonoscopy by Dr. Shiv Richter. Discovered to have a circumferential ulcerated mass in the proximal cecum. Dr. Shiv Richter then called Dr. Dr. Reinoso, we will proceed with surgery on Thursday. Meantime patient is to remain on clear liquids. I discussed this with the patient several family members present at the bedside. Questions answered. Active Medications Acetaminophen (Acetaminophen Tab 500 Mg Tab) 500 mg PO Q6HR PRN PRN Reason: Fever and/ or Pain Last Admin: 06/18/23 20:10 Dose: 500 mg Amlodipine Besylate (Amlodipine 5 Mg Tab) 5 mg PO DAILY [facility] Last Admin: 06/19/23 09:26 Dose: 5 mg Atorvastatin Calcium (Atorvastatin 20 Mg Tab) 20 mg PO HS [facility] Last Admin: 06/18/23 20:10 Dose: 20 mg Cyanocobalamin (Cyanocobalamin 500 Mcg Tab) 1,000 mcg PO DAILY [facility] Last Admin: 06/19/23 09:26 Dose: 1,000 mcg Enoxaparin Sodium (Enoxaparin 40 Mg/0.4 Ml Syringe) 40 mg SQ DAILY [facility] Last Admin: 06/19/23 09:26 Dose: 40 mg Famotidine (Famotidine 20 Mg Tab) 20 mg PO BID [facility] Last Admin: 06/19/23 09:27 Dose: 20 mg Hydromorphone HCl (Hydromorphone 0.5 Mg/0.5 Ml Syringe) 0.5 mg IVP Q4H PRN PRN Reason: Severe Pain (Scale 7 to 10) Last Admin: 06/15/23 06:31 Dose: 0.5 mg Metronidazole 500 mg/ IV (Solution) 100 mls @ 100 mls/hr IVPB Q12HR [facility]; Protocol Last Admin: 06/19/23 09:33 Dose: 100 mls/hr Insulin Aspart (Insulin Aspart (Novolog) 100 Unit/Ml Vial) 0 unit SQ ACHS [facility]; Protocol Last Admin: 06/19/23 11:29 Dose: Not Given Ondansetron HCl (Ondansetron 4 Mg/2 Ml Vial) 4 mg IVP Q6HR PRN PRN Reason: Nausea And Vomiting Last Admin: 06/17/23 09:36 Dose: 4 mg On examination: VITAL SIGNS: 98.8, 86, 17, 160/73, 96% room air GENERAL APPEARANCE: Laying in bed, comfortable HEENT: Normal external appearance of nose and ear. Oral cavity normal EYES: Pupils equal. Conjunctiva normal. NECK: JVD not raised. Mass not palpable. RESPIRATORY: Respiratory effort normal. Lungs clear to auscultation. CARDIOVASCULAR: First and second sounds normal. No edema. ABDOMEN: Soft. Liver and spleen not palpable. Mid and upper abdomen tenderness.- Central. No mass palpable. No guarding rigidity PSYCHIATRY: Alert and oriented x3. Mood and affect normal. INVESTIGATIONS, reviewed in the clinical context: June 18: White count 4.9 hemoglobin 9.1 potassium 3.5 creatinine 0.5 to Small bowel follow-through:small bowel mildly diffusely prominent. No filling defect reported.-Delayed transit time. CT abdomen pelvis: Irregular appearance of the terminal ileum with possible underlying mass. Appreciated on the prior exam. Some ingestion miss entry enlarged lymph node. Gallstones. Assessment and plan: - Abdominal pain. No bowel movement for last 1 week. Computed tomography scan small bowel through results noted. Patient did have a colonoscopy recently. In [place].: Not improving. 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 Patient being scheduled for surgery on Thursday by Dr. Reinoso. Clear liquid diets. -Aspiration during colonoscopy. no fever. Good pulse ox: Complete recovery -Diabetes mellitus type 2, on oral hypoglycemic Follow Accu-Cheks and sliding scale. Hold Glucophage. -Normocytic anemia, likely from underlying malignancy -Essential hypertension Zestoretic. -Hyperlipidemia Lipitor Clear liquids. Plan for surgery and Thursday.
[2023-06-19 17:31] LABS: Glucose,Whole Blood 151 mg/dL (70-110)
[2023-06-19 20:25] LABS: Glucose,Whole Blood 100 mg/dL (70-110)
[2023-06-19] MEDS: ATORVASTATIN 20 MG TAB PO SCH (20:25)
[2023-06-20 07:20] LABS: Glucose,Whole Blood 110 mg/dL (70-110)
[2023-06-20] MEDS: INSULIN ASPART (NovoLOG) 100 UNIT/ML VIAL SQ SCH ×4 (08:18→21:18)
[2023-06-20] MEDS: FAMOTIDINE 20 MG TAB PO SCH ×2 (09:01→20:01)
[2023-06-20] MEDS: ENOXAPARIN 40 MG/0.4 ML SYRINGE SQ SCH (09:01)
[2023-06-20] MEDS: CYANOCOBALAMIN 500 MCG TAB PO SCH (09:01)
[2023-06-20] MEDS: metroNIDAZOLE-NS PMX 500 MG in SALINE 1 100ML.BAG IVPB SCH ×2 (09:02→20:01)
[2023-06-20] MEDS: amLODIPine 5 MG TAB PO SCH (09:02)
[2023-06-20] MEDS: ACETAMINOPHEN TAB 500 MG TAB PO PRN (09:07)
--- NOTE | 2023-06-20 10:33 | P.PN ---
Subjective Progress Note Date: 06/20/23 Principal diagnosis: Cecal mass Patient without complaints. No abdominal pain. No nausea or vomiting. Patient is tolerating clear liquids. No labs from today. Objective - Vital Signs Vital signs: Vital Signs Temp 98.4 F 06/20/23 07:56 Pulse 84 06/20/23 07:56 Resp 16 06/20/23 07:56 BP 132/77 06/20/23 07:56 Pulse Ox 99 06/20/23 07:56 FiO2 Intake & Output 06/19/23 06/20/23 06/20/23 18:59 06:59 18:59 Intake Total 200 Balance 200 Weight 84.822 kg Intake: IV 200 Other: Voiding Method Toilet Toilet # Voids 4 1 - Exam Abdomen: Soft, nontender, nondistended - Labs CBC & Chem 7: 06/18/23 05:51 06/18/23 05:51 Labs: Abnormal Lab Results - Last 24 Hours (Table) 06/19/23 Range/Units 17:30 POC Glucose (mg/dL) 151 H (70-110) mg/dL Assessment and Plan (1) Colonic mass Narrative/Plan: 77-year-old female with recently identified mass of the colon. Patient is sc heduled for right colectomy on Thursday. 2 new clear liquids for now. Check CEA level. Current Visit: Yes Status: Acute Code(s): K63.89 - OTHER SPECIFIED DISEASES OF INTESTINE SNOMED Code(s): 678943070
[2023-06-20 12:49] LABS: Glucose,Whole Blood 152 mg/dL (70-110)
--- NOTE | 2023-06-20 16:36 | P.PN ---
Progress Note - Text Progress Note Date: 06/20/23 This a 77-year-old female who is transferred from outside hospital. Patient points of abdominal pain nausea. The outside facility perform a CAT scan which showed possible partial small bowel charge. 06/13. Patient seen and examined. Lab work showed WBC 7.62, hemoglobin 9.2, platelet count 232. States pain is improved. Denies any nausea 06/14. Patient seen and examined.CT abdominal and pelvis done showed irregular periods the terminal ileum with possible underlying mass. Findings resulting in partial small bowel obstruction. Surgery planning colonoscopy later in the week June 15: I assumed care of the patient today. Patient's had no bowel movement for last 1 week. Very small amount of flatus. Has had intermittent upper abdominal pain. Not related to food. Decreased appetite. I did order a small bowel follow-through. Found to have small bowel mildly diffusely prominent. No filling defect reported.-Delayed transit time. We'll get a GI consultation also. Patient been placed in a full liquid diet per surgery. There is no white count, no fever. DC antibiotics. June 16: Patient seen earlier by Dr. Reinoso. He didn't fast diet. Patient still has some tenderness on deep palpation. I'm concerned about the computed tomography scan findings and given her clinical history. Consult GI. GI is planning to proceed with a colonoscopy tomorrow. June 17: Patient seen by me before procedure this morning. During the procedure patient underwent aspiration. Procedure to be abandoned. Discussed with Dr. Shiv Richter. Depending on how the patient is doing well in the facet endoscopy next 24-48 hours. June 18: I visited the patient last night. Doing well.. No trouble breathing. This morning sitting up in a chair. Breathing is stable. No nausea vomiting. Discussed with GI. Patient stable to proceed for endoscopy tomorrow. Medically cleared. No respiratory symptoms. June 19: This morning patient underwent colonoscopy by Dr. Shiv Richter. Discovered to have a circumferential ulcerated mass in the proximal cecum. Dr. Shiv Richter then called Dr. Dr. Reinoso, we will proceed with surgery on Thursday. Meantime patient is to remain on clear liquids. I discussed this with the patient several family members present at the bedside. Questions answered. June 20: Patient on clear liquid. Up to the bathroom. Pending surgery on Thursday. No nausea vomiting. Discussed with patient. Active Medications Acetaminophen (Acetaminophen Tab 500 Mg Tab) 500 mg PO Q6HR PRN PRN Reason: Fever and/ or Pain Last Admin: 06/20/23 09:07 Dose: 500 mg Amlodipine Besylate (Amlodipine 5 Mg Tab) 5 mg PO DAILY [facility] Last Admin: 06/20/23 09:02 Dose: 5 mg Atorvastatin Calcium (Atorvastatin 20 Mg Tab) 20 mg PO HS [facility] Last Admin: 06/19/23 20:25 Dose: 20 mg Cyanocobalamin (Cyanocobalamin 500 Mcg Tab) 1,000 mcg PO DAILY [facility] Last Admin: 06/20/23 09:01 Dose: 1,000 mcg Enoxaparin Sodium (Enoxaparin 40 Mg/0.4 Ml Syringe) 40 mg SQ DAILY [facility] Last Admin: 06/20/23 09:01 Dose: 40 mg Famotidine (Famotidine 20 Mg Tab) 20 mg PO BID [facility] Last Admin: 06/20/23 09:01 Dose: 20 mg Hydromorphone HCl (Hydromorphone 0.5 Mg/0.5 Ml Syringe) 0.5 mg IVP Q4H PRN PRN Reason: Severe Pain (Scale 7 to 10) Last Admin: 06/15/23 06:31 Dose: 0.5 mg Metronidazole 500 mg/ IV (Solution) 100 mls @ 100 mls/hr IVPB Q12HR [facility]; Protocol Last Admin: 06/20/23 09:02 Dose: 100 mls/hr Insulin Aspart (Insulin Aspart (Novolog) 100 Unit/Ml Vial) 0 unit SQ ACHS [facility]; Protocol Last Admin: 06/20/23 13:19 Dose: 2 unit Ondansetron HCl (Ondansetron 4 Mg/2 Ml Vial) 4 mg IVP Q6HR PRN PRN Reason: Nausea And Vomiting Last Admin: 06/17/23 09:36 Dose: 4 mg On examination: VITAL SIGNS: 98.6, 80, 16, 123/70, 100% room air GENERAL APPEARANCE: , comfortable HEENT: Normal external appearance of nose and ear. Oral cavity normal EYES: Pupils equal. Conjunctiva normal. NECK: JVD not raised. Mass not palpable. RESPIRATORY: Respiratory effort normal. Lungs clear to auscultation. CARDIOVASCULAR: First and second sounds normal. No edema. ABDOMEN: Soft. Liver and spleen not palpable. Mild and upper abdomen tenderness.- Central. No mass palpable. No guarding rigidity PSYCHIATRY: Alert and oriented x3. Mood and affect normal. INVESTIGATIONS, reviewed in the clinical context: Colonoscopy: Circumferential tumor with ulcers in the proximal cecum June 18: White count 4.9 hemoglobin 9.1 potassium 3.5 creatinine 0.5 to Small bowel follow-through:small bowel mildly diffusely prominent. No filling defect reported.-Delayed transit time. CT abdomen pelvis: Irregular appearance of the terminal ileum with possible underlying mass. Appreciated on the prior exam. Some ingestion miss entry e nlarged lymph node. Gallstones. Assessment and plan: - Abdominal pain. No bowel movement for last 1 week. Computed tomography scan small bowel through results noted. Patient did have a colonoscopy recently. In [place].: Not improving. 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 scheduled for surgery on Thursday by Dr. Reinoso. Clear liquid diets. -Aspiration during colonoscopy. no fever. Good pulse ox: Complete recovery -Diabetes mellitus type 2, on oral hypoglycemic Follow Accu-Cheks and sliding scale. Hold Glucophage. -Normocytic anemia, likely from underlying malignancy -Essential hypertension Zestoretic. -Hyperlipidemia Lipitor Clear liquids. Pending surgery Thursday. Activity as tolerated.
[2023-06-20 17:17] LABS: Glucose,Whole Blood 109 mg/dL (70-110)
[2023-06-20 18:36] LABS: BUN/Creat Ratio <5.83 Ratio (12.00-20.00); Blood Urea Nitrogen <3.5 mg/dL (9.0-27.0); Calcium 8.7 mg/dL (8.7-10.3); Carbon Dioxide 22.3 mmol/L (21.6-31.8); Chloride 109 mmol/L (96-109); Glucose 100 mg/dL (70-110); Potassium 3.3 mmol/L (3.5-5.5); Sodium 143 mmol/L (135-145)
[2023-06-20] MEDS: ATORVASTATIN 20 MG TAB PO SCH (20:01)
[2023-06-20 20:30] LABS: Glucose,Whole Blood 154 mg/dL (70-110)
[2023-06-21 06:52] LABS: HCT 30.9 % (37.2-46.3); HGB 9.1 d/dL (12.0-15.0); MCH 24.1 pg (27.0-32.0); MCHC 29.4 d/dL (32.0-37.0); MCV 81.7 FL (80.0-97.0); Mean Platelet Volume 10.9 FL (9.5-12.2); NRBC Per 100 WBC 0 X 10*3/uL (0.00-0.01); Platelet Count 225 X 10*3/uL (140-440); RBC 3.78 X 10*6/uL (4.10-5.20); RDW 24.5 % (11.5-14.5); WBC 6.15 X 10*3/uL (4.50-10.00)
[2023-06-21 07:26] LABS: Glucose,Whole Blood 114 mg/dL (70-110)
[2023-06-21] MEDS: INSULIN ASPART (NovoLOG) 100 UNIT/ML VIAL SQ SCH ×4 (07:28→21:10)
[2023-06-21 08:05] LABS: Anisocytosis Moderate; Basophils % (A) 0 %; Eosinophils # (A) 0.2 k/uL (0-0.7); Eosinophils % (A) 3 %; HCT 29.2 % (34.0-46.0); HGB 9.2 gm/dL (11.4-16.0); Hypochromasia Marked; Lymphocytes # (A) 1.4 k/uL (1.0-4.8); Lymphocytes % (A) 30 %; MCH 25.2 pg (25.0-35.0); MCHC 31.7 g/dL (31.0-37.0); MCV 79.7 fL (80.0-100.0); Mean Platelet Volume 8.2; Microcytosis Moderate; Monocytes # (A) 0.4 k/uL (0-1.0); Monocytes % (A) 9 %; Neutrophils # (A) 2.6 k/uL (1.3-7.7); Neutrophils % (A) 55 %; Platelet Count 221 k/uL (150-450); RBC 3.66 m/uL (3.80-5.40); RDW 21.3 % (11.5-15.5); WBC 4.7 k/uL (3.8-10.6)
[2023-06-21 08:29] LABS: African American GFR (CKD) >90 (>60 ml/min/1.73 sqM); Anion Gap 6 mmol/L; Blood Urea Nitrogen <2 mg/dL (7-17); Calcium 8.4 mg/dL (8.4-10.2); Carbon Dioxide 27 mmol/L (22-30); Chloride 106 mmol/L (98-107); Glucose 96 mg/dL (74-99); Non-African American GFR(CKD) >90 (>60 ml/min/1.73 sqM); Potassium 3.3 mmol/L (3.5-5.1); Sodium 139 mmol/L (137-145)
[2023-06-21] MEDS: ENOXAPARIN 40 MG/0.4 ML SYRINGE SQ SCH (08:30)
[2023-06-21] MEDS: ACETAMINOPHEN TAB 500 MG TAB PO PRN (08:30)
[2023-06-21] MEDS: amLODIPine 5 MG TAB PO SCH (08:30)
[2023-06-21] MEDS: FAMOTIDINE 20 MG TAB PO SCH ×2 (08:30→21:10)
[2023-06-21] MEDS: CYANOCOBALAMIN 500 MCG TAB PO SCH (08:30)
[2023-06-21] MEDS ORDERED: PEG 3350 (236 GM/BTL) + LYTES 4,000 ML BOTTLE PO ONE (10:56)
--- NOTE | 2023-06-21 10:56 | P.PN ---
Subjective Progress Note Date: 06/21/23 Principal diagnosis: Cecal mass Patient doing well today. Did not sleep as well as night. No pain. No nausea or vomiting. Objective - Vital Signs Vital signs: Vital Signs Temp 98.9 F 06/21/23 08:04 Pulse 75 06/21/23 08:04 Resp 18 06/21/23 08:04 BP 131/74 06/21/23 08:04 Pulse Ox 98 06/21/23 08:04 FiO2 Intake & Output 06/20/23 06/21/23 06/21/23 18:59 06:59 18:59 Other: Voiding Method Toilet Toilet Toilet # Voids 3 2 - Exam Abdomen: Soft, nontender, nondistended - Labs CBC & Chem 7: 06/21/23 06:15 06/21/23 06:15 Labs: Abnormal Lab Results - Last 24 Hours (Table) 06/20/23 06/20/23 06/20/23 Range/Units 06:43 06:43 12:48 RBC 3.78 L (4.10-5.20) X 10*6/uL Hgb 9.1 L (12.0-15.0) d/dL Hct 30.9 L (37.2-46.3) % MCV (80.0-100.0) fL MCH 24.1 L (27.0-32.0) pg MCHC 29.4 L (32.0-37.0) d/dL RDW 24.5 H (11.5-14.5) % Potassium 3.3 L (3.5-5.5) mmol/L BUN <3.5 L (9.0-27.0) mg/dL BUN/Creatinine Ratio <5.83 L (12.00-20.00) Ratio POC Glucose (mg/dL) 152 H (70-110) mg/dL 06/20/23 06/21/23 06/21/23 Range/Units 20:28 06:15 06:15 RBC 3.66 L (4.10-5.20) X 10*6/uL Hgb 9.2 L (12.0-15.0) d/dL Hct 29.2 L (37.2-46.3) % MCV 79.7 L (80.0-100.0) fL MCH (27.0-32.0) pg MCHC (32.0-37.0) d/dL RDW 21.3 H (11.5-14.5) % Potassium 3.3 L (3.5-5.5) mmol/L BUN <2 L (9.0-27.0) mg/dL BUN/Creatinine Ratio (12.00-20.00) Ratio POC Glucose (mg/dL) 154 H (70-110) mg/dL 06/21/23 Range/Units 07:24 RBC (4.10-5.20) X 10*6/uL Hgb (12.0-15.0) d/dL Hct (37.2-46.3) % MCV (80.0-100.0) fL MCH (27.0-32.0) pg MCHC (32.0-37.0) d/dL RDW (11.5-14.5) % Potassium (3.5-5.5) mmol/L BUN (9.0-27.0) mg/dL BUN/Creatinine Ratio (12.00-20.00) Ratio POC Glucose (mg/dL) 114 H (70-110) mg/dL Assessment and Plan (1) Colonic mass Narrative/Plan: Patient doing well today. Labs noted. Did have a semi-formed stool. We'll do some additional bowel prep at this time. Scheduled for right colectomy tomorrow. Current Visit: Yes Status: Acute Code(s): K63.89 - OTHER SPECIFIED DISEASES OF INTESTINE SNOMED Code(s): 546661840
[2023-06-21 12:05] LABS: Glucose,Whole Blood 114 mg/dL (70-110)
[2023-06-21 17:38] LABS: Glucose,Whole Blood 113 mg/dL (70-110)
[2023-06-21] MEDS ORDERED: POTASSIUM CHLORIDE ER 20 MEQ TAB.ER PO STA (17:46)
--- NOTE | 2023-06-21 20:47 | P.PN ---
Progress Note - Text Progress Note Date: 06/21/23 This a 77-year-old female who is transferred from outside hospital. Patient points of abdominal pain nausea. The outside facility perform a CAT scan which showed possible partial small bowel charge. 06/13. Patient seen and examined. Lab work showed WBC 7.62, hemoglobin 9.2, platelet count 232. States pain is improved. Denies any nausea 06/14. Patient seen and examined.CT abdominal and pelvis done showed irregular periods the terminal ileum with possible underlying mass. Findings resulting in partial small bowel obstruction. Surgery planning colonoscopy later in the week June 15: I assumed care of the patient today. Patient's had no bowel movement for last 1 week. Very small amount of flatus. Has had intermittent upper abdominal pain. Not related to food. Decreased appetite. I did order a small bowel follow-through. Found to have small bowel mildly diffusely prominent. No filling defect reported.-Delayed transit time. We'll get a GI consultation also. Patient been placed in a full liquid diet per surgery. There is no white count, no fever. DC antibiotics. June 16: Patient seen earlier by Dr. Reinoso. He didn't fast diet. Patient still has some tenderness on deep palpation. I'm concerned about the computed tomography scan findings and given her clinical history. Consult GI. GI is planning to proceed with a colonoscopy tomorrow. June 17: Patient seen by me before procedure this morning. During the procedure patient underwent aspiration. Procedure to be abandoned. Discussed with Dr. Shiv Richter. Depending on how the patient is doing well in the facet endoscopy next 24-48 hours. June 18: I visited the patient last night. Doing well.. No trouble breathing. This morning sitting up in a chair. Breathing is stable. No nausea vomiting. Discussed with GI. Patient stable to proceed for endoscopy tomorrow. Medically cleared. No respiratory symptoms. June 19: This morning patient underwent colonoscopy by Dr. Shiv Richter. Discovered to have a circumferential ulcerated mass in the proximal cecum. Dr. Shiv Richter then called Dr. Dr. Reinoso, we will proceed with surgery on Thursday. Meantime patient is to remain on clear liquids. I discussed this with the patient several family members present at the bedside. Questions answered. June 20: Patient on clear liquid. Up to the bathroom. Pending surgery on Thursday. No nausea vomiting. Discussed with patient. June 21: On clear liquids. Nothing by mouth after midnight. Had some abdominal pain earlier. Pending surgery tomorrow. Otherwise comfortable. Ambulating. Active Medications Acetaminophen (Acetaminophen Tab 500 Mg Tab) 500 mg PO Q6HR PRN PRN Reason: Fever and/ or Pain Last Admin: 06/21/23 08:30 Dose: 500 mg Amlodipine Besylate (Amlodipine 5 Mg Tab) 5 mg PO DAILY [facility] Last Admin: 06/21/23 08:30 Dose: 5 mg Atorvastatin Calcium (Atorvastatin 20 Mg Tab) 20 mg PO HS [facility] Last Admin: 06/20/23 20:01 Dose: 20 mg Cyanocobalamin (Cyanocobalamin 500 Mcg Tab) 1,000 mcg PO DAILY [facility] Last Admin: 06/21/23 08:30 Dose: 1,000 mcg Enoxaparin Sodium (Enoxaparin 40 Mg/0.4 Ml Syringe) 40 mg SQ DAILY [facility] Last Admin: 06/21/23 08:30 Dose: 40 mg Famotidine (Famotidine 20 Mg Tab) 20 mg PO BID [facility] Last Admin: 06/21/23 08:30 Dose: 20 mg Hydromorphone HCl (Hydromorphone 0.5 Mg/0.5 Ml Syringe) 0.5 mg IVP Q4H PRN PRN Reason: Severe Pain (Scale 7 to 10) Last Admin: 06/15/23 06:31 Dose: 0.5 mg Insulin Aspart (Insulin Aspart (Novolog) 100 Unit/Ml Vial) 0 unit SQ [facility]; Protocol Last Admin: 06/21/23 17:46 Dose: Not Given Ondansetron HCl (Ondansetron 4 Mg/2 Ml Vial) 4 mg IVP Q6HR PRN PRN Reason: Nausea And Vomiting Last Admin: 06/17/23 09:36 Dose: 4 mg On examination: VITAL SIGNS: 98.5, 80, 16, 123/74, 100% room air GENERAL APPEARANCE: , comfortable HEENT: Normal external appearance of nose and ear. Oral cavity normal EYES: Pupils equal. Conjunctiva normal. NECK: JVD not raised. Mass not palpable. RESPIRATORY: Respiratory effort normal. Lungs clear to auscultation. CARDIOVASCULAR: First and second sounds normal. No edema. ABDOMEN: Soft. Liver and spleen not palpable. Mild and upper abdomen tenderness.- Central. No mass palpable. No guarding rigidity PSYCHIATRY: Alert and oriented x3. Mood and affect normal. INVESTIGATIONS, reviewed in the clinical context: June 21: White count 4.7 hemoglobin 9.2. 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 No filling defect reported.-Delayed transit time. CT abdomen pelvis: Irregular appearance of the terminal ileum with possible underlying mass. Appreciated on the prior exam. Some ingestion miss entry enlarged lymph node. Gallstones. Assessment and plan: - Abdominal pain. No bowel movement for last 1 week. Computed tomography scan small bowel through results noted. Patient did have a colonoscopy recently. In [place].: Not improving. 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 scheduled for surgery on Thursday by Dr. Reinoso. Clear liquid diets. Nothing by mouth after midnight -Aspiration during colonoscopy. no fever. Good pulse ox: Complete recovery -Diabetes mellitus type 2, on oral hypoglycemic Follow Accu-Cheks and sliding scale. Hold Glucophage. -Normocytic anemia, likely from underlying malignancy -Essential hypertension Zestoretic. -Hypokalemia, replace -Hyperlipidemia Lipitor Clear liquids. Nothing by mouth after midnight. Surgery tomorrow. Discussed.
[2023-06-21] MEDS: HYDROmorphone 0.5 MG/0.5 ML SYRINGE IVP PRN (21:03)
[2023-06-21] MEDS: ATORVASTATIN 20 MG TAB PO SCH (21:10)
[2023-06-21 21:16] LABS: Glucose,Whole Blood 112 mg/dL (70-110)
[2023-06-22 07:06] LABS: Glucose,Whole Blood 121 mg/dL (70-110)
[2023-06-22] MEDS: INSULIN ASPART (NovoLOG) 100 UNIT/ML VIAL SQ SCH ×4 (07:18→20:19)
[2023-06-22] MEDS: ENOXAPARIN 40 MG/0.4 ML SYRINGE SQ SCH (07:51)
[2023-06-22 07:53] LABS: African American GFR (CKD) >90 (>60 ml/min/1.73 sqM); Anion Gap 10 mmol/L; Blood Urea Nitrogen <2 mg/dL (7-17); Calcium 8.6 mg/dL (8.4-10.2); Carbon Dioxide 22 mmol/L (22-30); Chloride 107 mmol/L (98-107); Glucose 104 mg/dL (74-99); Non-African American GFR(CKD) >90 (>60 ml/min/1.73 sqM); Potassium 3.8 mmol/L (3.5-5.1); Sodium 139 mmol/L (137-145)
[2023-06-22] MEDS: amLODIPine 5 MG TAB PO SCH (08:05)
[2023-06-22] MEDS: CYANOCOBALAMIN 500 MCG TAB PO SCH (08:05)
[2023-06-22] MEDS: FAMOTIDINE 20 MG TAB PO SCH ×2 (08:05→20:21)
[2023-06-22] MEDS: ACETAMINOPHEN TAB 500 MG TAB PO PRN (08:05)
[2023-06-22] MEDS ORDERED: LACTATED RINGERS 1,000 ML IV ONE ×3 (10:25→13:30)
[2023-06-22 10:28] LABS: Glucose,Whole Blood 131 mg/dL (70-110)
[2023-06-22 11:12] LABS: INR 1.1 (<1.2); Prothrombin Time 11.1 sec (9.0-12.0)
[2023-06-22] MEDS ORDERED: fentaNYL (PF) 50 MCG/1 ML VIAL IVP ONE (11:34)
[2023-06-22] MEDS ORDERED: MIDAZOLAM 2 MG/2 ML VIAL IVP ONE (11:34)
[2023-06-22] MEDS ORDERED: PROPOFOL 10 MG/ML 20 ML VIAL IV ONE (11:44)
[2023-06-22] MEDS ORDERED: MIDAZOLAM 2 MG/2 ML VIAL ONE (11:44)
[2023-06-22] MEDS ORDERED: LIDOCAINE 1% INJ 10MG/ML (20 ML MDV) ONE (11:44)
[2023-06-22] MEDS ORDERED: GLYCOPYRROLATE 0.2 MG/ML 2 ML VIAL ONE (11:44)
[2023-06-22] MEDS ORDERED: NEOSTIGMINE 1 MG/ML 10 ML VIAL ONE (11:44)
[2023-06-22] MEDS ORDERED: SUCCINYLCHOLINE CHLORIDE 200 MG/10 ML VIAL IV ONE (11:44)
[2023-06-22] MEDS ORDERED: fentaNYL (PF) 50 MCG/ML 2 ML AMP ONE (11:44)
[2023-06-22] MEDS ORDERED: ROCURONIUM 10 MG/ML (5 ML VIAL) IV ONE (11:44)
[2023-06-22] MEDS ORDERED: SODIUM CHLORIDE 0.9% 50 ML with ceFAZolin 2 GM IV ONE ×2 (11:49)
[2023-06-22] MEDS ORDERED: diphenhydrAMINE 50 MG/ML 1 ML VIAL IVP PRN (11:50)
[2023-06-22] MEDS ORDERED: NALOXONE 0.4 MG/ML 1 ML VIAL IV PRN (11:50)
--- NOTE | 2023-06-22 11:50 | P.ANPRN ---
Procedure Note - Anesthesia - Epidural/Spinal Epidural Continuous Time Out Performed: Yes Date of Procedure: 06/22/23 Procedure Start Time: 11:34 Procedure Stop Time: 11:44 Location of Patient: PreOp Indication: Acute Post-Operative Pain, Requested by Surgeon ([email or web address]) Sedation Type: Sedate with meaningful contact maintained Preparation: Sterile Dressing Number of Attempts: 1 Position: Supine Catheter Depth at Skin (cm): 11 Catheter: Indwelling Needle Guage: 18 Injectate: lido 1.5% with epi 5cc Narrative: Sterile protocol. Negative test dose. Patient tolerated procedure well. Blood Aspirated: No Pain Paresthesia on Injection Noted: No Events: Uneventful and Well Tolerated
--- NOTE | 2023-06-22 12:54 | P.OP ---
Date of Procedure: 06/22/23 Preoperative Diagnosis: Right colon mass Postoperative Diagnosis: Right colon mass, deferred to pathology Procedure(s) Performed: A right colectomy Anesthesia: XU Surgeon: Ruy Reinoso Estimated Blood Loss (ml): 25 Pathology: other (Right colon) Condition: stable Disposition: PACU Operative Findings: Large right colon mass suggestive of colon cancer., No evidence of metastatic spread Description of Procedure: Patient's placed on the operative table in the supine position. She received general endotracheal tube anesthesia. Her abdomen was prepped and draped in usual sterile fashion. The skin was incised in midline. Using left cautery abdominal was divided. The peritoneal cavity is entered. The patient had been previously tattooed. The right colon had a mass. The tattoo carrie was at the mass. This point the abdomen was examined. The liver appeared normal. There is no masses palpated liver. Small bowel appeared normal. The right colon was then mobilized by dividing the white line of Toldt. The terminal ileum was then transected with a GI stapler. And then the distal right colon was transected with the GI stapler. Using the Enseal device the mesentery the bowel was divided. The specimens of pathology. Next using the MARTA and TA staplers a [id number] functional end-to-end staple anastomosis created. A 3-0 GI silk sutures using a crotch stitch. The abdomen was irrigated there is no bleeding seen. The fascia closed loop #1 PDS suture. Skin was closed delbert. Sterile dressing was applied. Patient tolerated the procedure well. She was sent to recovery room stable condition.
[2023-06-22] MEDS ORDERED: HYDROmorphone 0.5 MG/0.5 ML SYRINGE IVP ONE (12:59)
[2023-06-22] MEDS: ROPIVACAINE 250 MG, fentaNYL (PF) 625 MCG in SODIUM CHLORIDE 0.9% 188 ML EPIDURAL PRN ×2 (13:03→13:55)
[2023-06-22] MEDS ORDERED: ONDANSETRON 4 MG/2 ML VIAL IVP ONE (13:29)
[2023-06-22 13:36] LABS: Glucose,Whole Blood 119 mg/dL (70-110)
[2023-06-22 15:20] LABS: African American GFR (CKD) >90 (>60 ml/min/1.73 sqM); Anion Gap 10 mmol/L; Blood Urea Nitrogen <2 mg/dL (7-17); Calcium 8.7 mg/dL (8.4-10.2); Carbon Dioxide 25 mmol/L (22-30); Chloride 105 mmol/L (98-107); Glucose 139 mg/dL (74-99); Non-African American GFR(CKD) >90 (>60 ml/min/1.73 sqM); Potassium 3.9 mmol/L (3.5-5.1); Sodium 140 mmol/L (137-145)
[2023-06-22] MEDS: D5-0.45% NACL WITH KCL 20MEQ/L 1,000 ML IV SCH ×2 (15:31→20:22)
[2023-06-22] MEDS: HEPARIN SODIUM,PORCINE 5,000 UNIT/ML 1 ML VIAL SQ SCH (15:32)
[2023-06-22 17:08] LABS: Glucose,Whole Blood 155 mg/dL (70-110)
--- NOTE | 2023-06-22 19:48 | P.PN ---
Progress Note - Text Progress Note Date: 06/22/23 This a 77-year-old female who is transferred from outside hospital. Patient points of abdominal pain nausea. The outside facility perform a CAT scan which showed possible partial small bowel charge. 06/13. Patient seen and examined. Lab work showed WBC 7.62, hemoglobin 9.2, platelet count 232. States pain is improved. Denies any nausea 06/14. Patient seen and examined.CT abdominal and pelvis done showed irregular periods the terminal ileum with possible underlying mass. Findings resulting in partial small bowel obstruction. Surgery planning colonoscopy later in the week June 15: I assumed care of the patient today. Patient's had no bowel movement for last 1 week. Very small amount of flatus. Has had intermittent upper abdominal pain. Not related to food. Decreased appetite. I did order a small bowel follow-through. Found to have small bowel mildly diffusely prominent. No filling defect reported.-Delayed transit time. We'll get a GI consultation also. Patient been placed in a full liquid diet per surgery. There is no white count, no fever. DC antibiotics. June 16: Patient seen earlier by Dr. Reinoso. He didn't fast diet. Patient still has some tenderness on deep palpation. I'm concerned about the computed tomography scan findings and given her clinical history. Consult GI. GI is planning to proceed with a colonoscopy tomorrow. June 17: Patient seen by me before procedure this morning. During the procedure patient underwent aspiration. Procedure to be abandoned. Discussed with Dr. Shiv Richter. Depending on how the patient is doing well in the facet endoscopy next 24-48 hours. June 18: I visited the patient last night. Doing well.. No trouble breathing. This morning sitting up in a chair. Breathing is stable. No nausea vomiting. Discussed with GI. Patient stable to proceed for endoscopy tomorrow. Medically cleared. No respiratory symptoms. June 19: This morning patient underwent colonoscopy by Dr. Shiv Richter. Discovered to have a circumferential ulcerated mass in the proximal cecum. Dr. Shiv Richter then called Dr. Dr. Reinoso, we will proceed with surgery on Thursday. Meantime patient is to remain on clear liquids. I discussed this with the patient several family members present at the bedside. Questions answered. June 20: Patient on clear liquid. Up to the bathroom. Pending surgery on Thursday. No nausea vomiting. Discussed with patient. June 21: On clear liquids. Nothing by mouth after midnight. Had some abdominal pain earlier. Pending surgery tomorrow. Otherwise comfortable. Ambulating. June 22: Large right colonic mass removed with right colectomy earlier today by Dr. Reinoso. Midline incision with dressing. Some abdominal pain. Patient has an epidural for pain. Clear liquid diet Active Medications Acetaminophen (Acetaminophen Tab 500 Mg Tab) 500 mg PO Q6HR PRN PRN Reason: Fever and/ or Pain Last Admin: 06/22/23 08:05 Dose: 500 mg Amlodipine Besylate (Amlodipine 5 Mg Tab) 5 mg PO DAILY [facility] Last Admin: 06/22/23 08:05 Dose: 5 mg Atorvastatin Calcium (Atorvastatin 20 Mg Tab) 20 mg PO HS [facility] Last Admin: 06/21/23 21:10 Dose: 20 mg Cyanocobalamin (Cyanocobalamin 500 Mcg Tab) 1,000 mcg PO DAILY [facility] Last Admin: 06/22/23 08:05 Dose: 1,000 mcg Diphenhydramine HCl (Diphenhydramine 50 Mg/Ml 1 Ml Vial) 12.5 mg IVP Q6HR PRN PRN Reason: Itching Famotidine (Famotidine 20 Mg Tab) 20 mg PO BID [facility] Last Admin: 06/22/23 08:05 Dose: 20 mg Heparin Sodium (Porcine) (Heparin Sodium,Porcine 5,000 Unit/Ml 1 Ml Vial) 5,000 unit SQ Q8HR [facility] Last Admin: 06/22/23 15:32 Dose: 5,000 unit Hydromorphone HCl (Hydromorphone 0.5 Mg/0.5 Ml Syringe) 0.5 mg IVP Q4H PRN PRN Reason: Severe Pain (Scale 7 to 10) Last Admin: 06/21/23 21:03 Dose: 0.5 mg Ropivacaine 250 mg/ Fentanyl Citrate 625 mcg/ Sodium Chloride 250 mls @ 0 mls/hr EPIDURAL .Q0M PRN; Protocol PRN Reason: Analgesia Last Infusion: 06/22/23 16:34 Dose: 9 mls/hr Potassium Chloride/Dextrose/Sod Cl (D5%-1/2ns-Kcl 20 Meq/L Iv Solution) 1,000 mls @ 125 mls/hr IV .Q8H [facility] Last Admin: 06/22/23 15:31 Dose: 125 mls/hr Insulin Aspart (Insulin Aspart (Novolog) 100 Unit/Ml Vial) 0 unit SQ [facility]; Protocol Last Admin: 06/22/23 17:20 Dose: Not Given Naloxone HCl (Naloxone 0.4 Mg/Ml 1 Ml Vial) 0.2 mg IV Q2M PRN PRN Reason: Opioid Reversal Ondansetron HCl (Ondansetron 4 Mg/2 Ml Vial) 4 mg IVP Q6HR PRN PRN Reason: Nausea And Vomiting Last Admin: 06/17/23 09:36 Dose: 4 mg On examination: VITAL SIGNS: At 6.8, 84, 16, 140/72, 99% on 2 L GENERAL APPEARANCE: , Laying in bed HEENT: Normal external appearance of nose and ear. Oral cavity normal EYES: Pupils equal. Conjunctiva normal. NECK: JVD not raised. Mass not palpable. RESPIRATORY: Respiratory effort normal. Lungs clear to auscultation. CARDIOVASCULAR: First and second sounds normal. No edema. ABDOMEN: Soft. Liver and spleen not palpable. Midline incision with dressing. Some tenderness... No mass palpable. No guarding rigidity PSYCHIATRY: Alert and oriented x3. Mood and affect normal. INVESTIGATIONS, reviewed in the clinical context: June 21: White count 4.7 hemoglobin 9.2. 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 No filling defect reported.-Delayed transit time. CT abdomen pelvis: Irregular appearance of the terminal ileum with possible underlying mass. Appreciated on the prior exam. Some ingestion miss entry enlarged lymph node. Gallstones. Assessment and plan: - Abdominal pain. No bowel movement for last 1 week. Computed tomography scan small bowel through results noted. Patient did have a colonoscopy recently. In [place].: Not improving. 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 Right colectomy for a right colon mass. Epidural in place. Clear liquids -Aspiration during colonoscopy. no fever. Good pulse ox: Complete recovery -Diabetes mellitus type 2, on oral hypoglycemic Follow Accu-Cheks and sliding scale. Hold Glucophage. -Normocytic anemia, likely from underlying malignancy -Essential hypertension Zestoretic. -Hypokalemia, replace -Hyperlipidemia Lipitor Clear liquids. Epidural. Discussed with patient.
[2023-06-22 19:55] LABS: Glucose,Whole Blood 134 mg/dL (70-110)
[2023-06-22] MEDS: ATORVASTATIN 20 MG TAB PO SCH (20:21)
[2023-06-22 22:32] LABS: Basophils # (A) 0.03 X 10*3/uL (0.00-0.10); Basophils % (A) 0.4 %; Eosinophils # (A) 0.03 X 10*3/uL (0.04-0.35); Eosinophils % (A) 0.4 %; HCT 34.7 % (37.2-46.3); Lymphocytes # (A) 1.07 X 10*3/uL (0.90-5.00); Lymphocytes % (A) 13.8 %; MCH 23.5 pg (27.0-32.0); MCHC 28.8 d/dL (32.0-37.0); MCV 81.5 FL (80.0-97.0); Mean Platelet Volume 10.9 FL (9.5-12.2); Monocytes # (A) 0.65 X 10*3/uL (0.20-1.00); Monocytes % (A) 8.4 %; NRBC Per 100 WBC 0 X 10*3/uL (0.00-0.01); Neutrophils # (A) 5.92 X 10*3/uL (1.80-7.70); Neutrophils % (A) 76.6 %; Platelet Count 286 X 10*3/uL (140-440); RBC 4.26 X 10*6/uL (4.10-5.20); RDW 23.6 % (11.5-14.5); WBC 7.73 X 10*3/uL (4.50-10.00)
[2023-06-23] MEDS: HEPARIN SODIUM,PORCINE 5,000 UNIT/ML 1 ML VIAL SQ SCH ×3 (01:08→17:15)
[2023-06-23] MEDS: D5-0.45% NACL WITH KCL 20MEQ/L 1,000 ML IV SCH ×3 (01:13→22:40)
--- NOTE | 2023-06-23 07:05 | P.PN ---
Progress Note - Text Date: 06/23/2023 Time: 06:42 The patient is status post right colectomy, postoperative day number 1. The patient has no complaints of nausea vomiting or headache. The patient does not complain of any lower extremity numbness or weakness. The epidural is running at 9 mL per hour. VAS 0-1-10. The epidural will be maintained and adjusted as needed.
[2023-06-23 07:08] LABS: Glucose,Whole Blood 124 mg/dL (70-110)
[2023-06-23] MEDS: INSULIN ASPART (NovoLOG) 100 UNIT/ML VIAL SQ SCH ×4 (08:13→22:05)
[2023-06-23] MEDS: CYANOCOBALAMIN 500 MCG TAB PO SCH (08:55)
[2023-06-23] MEDS: amLODIPine 5 MG TAB PO SCH (08:55)
[2023-06-23] MEDS: FAMOTIDINE 20 MG TAB PO SCH ×2 (08:55→21:15)
[2023-06-23 12:40] LABS: Glucose,Whole Blood 147 mg/dL (70-110)
[2023-06-23] MEDS: ROPIVACAINE 250 MG, fentaNYL (PF) 625 MCG in SODIUM CHLORIDE 0.9% 188 ML EPIDURAL PRN (14:26)
--- NOTE | 2023-06-23 14:30 | P.PN ---
Subjective Progress Note Date: 06/23/23 CHIEF COMPLAINT: cecal mass HISTORY OF PRESENT ILLNESS: Patient postop day #1 status post right colectomy. Patient reports her pain is controlled. Denies any nausea or vomiting. No flatus. Afebrile. PHYSICAL EXAM: VITAL SIGNS: Reviewed. GENERAL: Well-developed in no acute distress. ABDOMEN: Soft. Nondistended. Prevana wound vac intact ASSESSMENT: 1. Large right colon mass status post right colectomy 2. Incidental finding of Cholelithiasis on CT 3. Small hiatal hernia PLAN: -Continue clear liquid diet -Continue epidural for pain control -Continue Connolly catheter -Encouraged patient to increase activity level -Encouraged patient to use incentive spirometer -Continue IV fluids -DVT prophylaxis subcu heparin and GI prophylaxis Pepcid Physician Research Neuropsychologist note has been reviewed by physician. Signing provider agrees with the documented findings, assessment, and plan of care. Objective - Vital Signs Vital signs: Vital Signs Temp 99.3 F 06/23/23 11:35 Pulse 83 06/23/23 13:32 Resp 16 06/23/23 11:35 BP 120/74 06/23/23 13:32 Pulse Ox 99 06/23/23 13:32 FiO2 Intake & Output 06/22/23 06/23/23 06/23/23 18:59 06:59 18:59 Intake Total 1256.8 Output Total 1525 450 Balance -268.2 -450 Weight 84.822 kg Intake: IV 1256.8 Output: Urine 1500 450 Estimated Blood Loss 25 Other: Voiding Method Toilet Toilet Indwelling Catheter - Labs CBC & Chem 7: 06/22/23 14:51 06/22/23 14:51 Labs: Abnormal Lab Results - Last 24 Hours (Table) 06/22/23 06/22/23 06/22/23 Range/Units 14:51 14:51 17:07 Hgb 10.0 L (12.0-15.0) d/dL Hct 34.7 L (37.2-46.3) % MCH 23.5 L (27.0-32.0) pg MCHC 28.8 L (32.0-37.0) d/dL RDW 23.6 H (11.5-14.5) % Eosinophils # 0.03 L (0.04-0.35) X 10*3/uL BUN <2 L (7-17) mg/dL Creatinine 0.46 L (0.52-1.04) mg/dL Glucose 139 H (74-99) mg/dL POC Glucose (mg/dL) 155 H (70-110) mg/dL 06/22/23 06/23/23 06/23/23 Range/Units 19:54 07:06 11:37 Hgb (12.0-15.0) d/dL Hct (37.2-46.3) % MCH (27.0-32.0) pg MCHC (32.0-37.0) d/dL RDW (11.5-14.5) % Eosinophils # (0.04-0.35) X 10*3/uL BUN (7-17) mg/dL Creatinine (0.52-1.04) mg/dL Glucose (74-99) mg/dL POC Glucose (mg/dL) 134 H 124 H 147 H (70-110) mg/dL
[2023-06-23] MEDS: ONDANSETRON 4 MG/2 ML VIAL IVP PRN (15:51)
[2023-06-23 17:03] LABS: Glucose,Whole Blood 218 mg/dL (70-110)
[2023-06-23 20:15] LABS: Glucose,Whole Blood 133 mg/dL (70-110)
--- NOTE | 2023-06-23 20:24 | P.PN ---
Progress Note - Text Progress Note Date: 06/23/23 This a 77-year-old female who is transferred from outside hospital. Patient points of abdominal pain nausea. The outside facility perform a CAT scan which showed possible partial small bowel charge. 06/13. Patient seen and examined. Lab work showed WBC 7.62, hemoglobin 9.2, platelet count 232. States pain is improved. Denies any nausea 06/14. Patient seen and examined.CT abdominal and pelvis done showed irregular periods the terminal ileum with possible underlying mass. Findings resulting in partial small bowel obstruction. Surgery planning colonoscopy later in the week June 15: I assumed care of the patient today. Patient's had no bowel movement for last 1 week. Very small amount of flatus. Has had intermittent upper abdominal pain. Not related to food. Decreased appetite. I did order a small bowel follow-through. Found to have small bowel mildly diffusely prominent. No filling defect reported.-Delayed transit time. We'll get a GI consultation also. Patient been placed in a full liquid diet per surgery. There is no white count, no fever. DC antibiotics. June 16: Patient seen earlier by Dr. Reinoso. He didn't fast diet. Patient still has some tenderness on deep palpation. I'm concerned about the computed tomography scan findings and given her clinical history. Consult GI. GI is planning to proceed with a colonoscopy tomorrow. June 17: Patient seen by me before procedure this morning. During the procedure patient underwent aspiration. Procedure to be abandoned. Discussed with Dr. Shiv Richter. Depending on how the patient is doing well in the facet endoscopy next 24-48 hours. June 18: I visited the patient last night. Doing well.. No trouble breathing. This morning sitting up in a chair. Breathing is stable. No nausea vomiting. Discussed with GI. Patient stable to proceed for endoscopy tomorrow. Medically cleared. No respiratory symptoms. June 19: This morning patient underwent colonoscopy by Dr. Shiv Richter. Discovered to have a circumferential ulcerated mass in the proximal cecum. Dr. Shiv Richter then called Dr. Dr. Reinoso, we will proceed with surgery on Thursday. Meantime patient is to remain on clear liquids. I discussed this with the patient several family members present at the bedside. Questions answered. June 20: Patient on clear liquid. Up to the bathroom. Pending surgery on Thursday. No nausea vomiting. Discussed with patient. June 21: On clear liquids. Nothing by mouth after midnight. Had some abdominal pain earlier. Pending surgery tomorrow. Otherwise comfortable. Ambulating. June 22: Large right colonic mass removed with right colectomy earlier today by Dr. Reinoso. Midline incision with dressing. Some abdominal pain. Patient has an epidural for pain. Clear liquid diet June 23: Remains an epidural for pain. No bowel movement or flatus. Clear liquids. Active Medications Acetaminophen (Acetaminophen Tab 500 Mg Tab) 500 mg PO Q6HR PRN PRN Reason: Fever and/ or Pain Last Admin: 06/22/23 08:05 Dose: 500 mg Amlodipine Besylate (Amlodipine 5 Mg Tab) 5 mg PO DAILY [facility] Last Admin: 06/23/23 08:55 Dose: 5 mg Atorvastatin Calcium (Atorvastatin 20 Mg Tab) 20 mg PO HS [facility] Last Admin: 06/22/23 20:21 Dose: 20 mg Cyanocobalamin (Cyanocobalamin 500 Mcg Tab) 1,000 mcg PO DAILY [facility] Last Admin: 06/23/23 08:55 Dose: 1,000 mcg Diphenhydramine HCl (Diphenhydramine 50 Mg/Ml 1 Ml Vial) 12.5 mg IVP Q6HR PRN PRN Reason: Itching Last Admin: 06/23/23 17:17 Dose: 12.5 mg Famotidine (Famotidine 20 Mg Tab) 20 mg PO BID [facility] Last Admin: 06/23/23 08:55 Dose: 20 mg Heparin Sodium (Porcine) (Heparin Sodium,Porcine 5,000 Unit/Ml 1 Ml Vial) 5,000 unit SQ Q8HR [facility] Last Admin: 06/23/23 17:15 Dose: 5,000 unit Hydromorphone HCl (Hydromorphone 0.5 Mg/0.5 Ml Syringe) 0.5 mg IVP Q4H PRN PRN Reason: Severe Pain (Scale 7 to 10) Last Admin: 06/21/23 21:03 Dose: 0.5 mg Ropivacaine 250 mg/ Fentanyl Citrate 625 mcg/ Sodium Chloride 250 mls @ 0 mls/hr EPIDURAL .Q0M PRN; Protocol PRN Reason: Analgesia Last Admin: 06/23/23 14:26 Dose: 9 mls/hr Potassium Chloride/Dextrose/Sod Cl (D5%-1/2ns-Kcl 20 Meq/L Iv Solution) 1,000 mls @ 125 mls/hr IV .Q8H [facility] Last Admin: 06/23/23 10:42 Dose: 125 mls/hr Insulin Aspart (Insulin Aspart (Novolog) 100 Unit/Ml Vial) 0 unit SQ [facility]S [facility]; Protocol Last Admin: 06/23/23 17:15 Dose: 4 unit Naloxone HCl (Naloxone 0.4 Mg/Ml 1 Ml Vial) 0.2 mg IV Q2M PRN PRN Reason: Opioid Reversal Ondansetron HCl (Ondansetron 4 Mg/2 Ml Vial) 4 mg IVP Q6HR PRN PRN Reason: Nausea And Vomiting Last Admin: 06/23/23 15:51 Dose: 4 mg On examination: VITAL SIGNS: 99.3, 91, 16, 126/77, 95% room air GENERAL APPEARANCE: , Laying in bed, epidural HEENT: Normal external appearance of nose and ear. Oral cavity normal EYES: Pupils equal. Conjunctiva normal. NECK: JVD not raised. Mass not palpable. RESPIRATORY: Respiratory effort normal. Lungs clear to auscultation. CARDIOVASCULAR: First and second sounds normal. No edema. ABDOMEN: Soft. Liver and spleen not palpable. Midline incision with dressing. Interval tenderness... No mass palpable. No guarding rigidity PSYCHIATRY: Alert and oriented x3. Mood and affect normal. INVESTIGATIONS, reviewed in the clinical context: June 21: White count 4.7 hemoglobin 9.2. 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 No filling defect reported.-Delayed transit time. CT abdomen pelvis: Irregular appearance of the terminal ileum with possible underlying mass. Appreciated on the prior exam. Some ingestion miss entry enlarged lymph node. Gallstones. Assessment and plan: - Abdominal pain. No bowel movement for last 1 week. Computed tomography scan small bowel through results noted. Patient did have a colonoscopy recently. In [place].: Not improving. 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 Right colectomy for a right colon mass. Epidural in place. Clear liquids -Aspiration during colonoscopy. no fever. Good pulse ox: Complete recovery -Diabetes mellitus type 2, on oral hypoglycemic Follow Accu-Cheks and sliding scale. Hold Glucophage. -Normocytic anemia, likely from underlying malignancy -Essential hypertension Zestoretic. -Hypokalemia, replace -Hyperlipidemia Lipitor Clear liquids. Epidural. At the patient sit up in a chair.
[2023-06-23] MEDS: ATORVASTATIN 20 MG TAB PO SCH (21:15)
[2023-06-24] MEDS: HEPARIN SODIUM,PORCINE 5,000 UNIT/ML 1 ML VIAL SQ SCH ×4 (00:14→23:13)
[2023-06-24] MEDS: ACETAMINOPHEN TAB 500 MG TAB PO PRN ×2 (01:04→20:21)
[2023-06-24 05:21] LABS: Anisocytosis Moderate; Basophils % (A) 0 %; Eosinophils # (A) 0.1 k/uL (0-0.7); Eosinophils % (A) 1 %; HCT 31.1 % (34.0-46.0); HGB 9.6 gm/dL (11.4-16.0); Hypochromasia Marked; Lymphocytes # (A) 1.5 k/uL (1.0-4.8); Lymphocytes % (A) 19 %; MCH 24.9 pg (25.0-35.0); MCHC 30.9 g/dL (31.0-37.0); MCV 80.5 fL (80.0-100.0); Mean Platelet Volume 7.8; Microcytosis Moderate; Monocytes # (A) 0.8 k/uL (0-1.0); Monocytes % (A) 10 %; Neutrophils # (A) 5.5 k/uL (1.3-7.7); Neutrophils % (A) 69 %; Platelet Count 201 k/uL (150-450); RBC 3.87 m/uL (3.80-5.40); RDW 20.8 % (11.5-15.5)
[2023-06-24] MEDS: D5-0.45% NACL WITH KCL 20MEQ/L 1,000 ML IV SCH ×2 (05:33→14:32)
[2023-06-24 05:34] LABS: African American GFR (CKD) >90 (>60 ml/min/1.73 sqM); Anion Gap 8 mmol/L; Blood Urea Nitrogen 2 mg/dL (7-17); Calcium 8.4 mg/dL (8.4-10.2); Carbon Dioxide 26 mmol/L (22-30); Chloride 101 mmol/L (98-107); Glucose 115 mg/dL (74-99); Non-African American GFR(CKD) >90 (>60 ml/min/1.73 sqM); Sodium 135 mmol/L (137-145)
--- NOTE | 2023-06-24 06:39 | P.PN ---
Progress Note - Text Progress Note Date: 06/24/23 Patient was seen and evaluated at bedside. Postop day # 2 status post right c olectomy . Patient is comfortably lying on the bed. Rated pain levels are 3-4 out of 10 in severity. Moving extremities well without any difficulty. He denied any red flag symptoms, pain over the catheter site. Physical exam: Vital signs: stable, afebrile Catheter site: Clean, and intact Dressing. no tenderness over the catheter area. Moving lower extremities without difficulty. Assessment: Acute postoperative pain secondary to right colectomy Platelet count: 201 Coagulation profile: Within normal limits Anticoagulants: Heparin 5000 units subcu every 8 hours Plan: Continue epidural infusion solution at the rate of 9 mL per hour. We will continue epidural catheter one more day unless primary team planned to send the patient home then we will discontinue. Call anesthesia as needed. Please hold heparin for 6 hours before discontinuing the epidural tomorrow.
[2023-06-24 07:12] LABS: Glucose,Whole Blood 152 mg/dL (70-110)
[2023-06-24] MEDS: amLODIPine 5 MG TAB PO SCH (09:25)
[2023-06-24] MEDS: CYANOCOBALAMIN 500 MCG TAB PO SCH (09:25)
[2023-06-24] MEDS: FAMOTIDINE 20 MG TAB PO SCH ×2 (09:25→20:27)
[2023-06-24] MEDS: INSULIN ASPART (NovoLOG) 100 UNIT/ML VIAL SQ SCH ×4 (09:28→20:44)
[2023-06-24 12:30] LABS: Glucose,Whole Blood 145 mg/dL (70-110)
--- NOTE | 2023-06-24 13:57 | P.PN ---
Subjective Progress Note Date: 06/24/23 CHIEF COMPLAINT: cecal mass HISTORY OF PRESENT ILLNESS: Patient postop day #2 status post right colectomy. Patient reports her abdominal pain is controlled with Epidural. She does complain of left shoulder pain Denies any nausea or vomiting. She is having flatus. She did have a low-grade temp of 100.1 early this morning. WBC 8.0 Hgb 9.6 PHYSICAL EXAM: VITAL SIGNS: Reviewed. GENERAL: Well-developed in no acute distress. ABDOMEN: Soft. Nondistended. Prevana wound vac intact ASSESSMENT: 1. Large right colon mass status post right colectomy 2. Incidental finding of Cholelithiasis on CT 3. Small hiatal hernia PLAN: -Advance diet to full liquids -Plan to discontinue epidural Connolly catheter tomorrow -Encouraged patient to increase activity level -Encouraged patient to use incentive spirometer -Discontinue IV fluids -Awaiting final path results -DVT prophylaxis subcu heparin and GI prophylaxis Pepcid Physician [employer] Inspector note has been reviewed by physician. Signing provider agrees with the documented findings, assessment, and plan of care. Objective - Vital Signs Vital signs: Vital Signs Temp 98.0 F 06/24/23 13:28 Pulse 94 06/24/23 13:28 Resp 18 06/24/23 13:28 BP 115/62 06/24/23 13:28 Pulse Ox 95 06/24/23 13:28 FiO2 Intake & Output 06/23/23 06/24/23 06/24/23 18:59 06:59 18:59 Intake Total 196.8 160 Output Total 600 1000 Balance -403.2 -840 Weight 84.822 kg Intake: Intake, IV Titration 196.8 Amount Ropivacaine 250 mg 196.8 fentaNYL (PF) 625 mcg In Sodium Chloride 0.9% 188 ml @ Per Protocol EPIDURAL .Q0M PRN Rx#: [id number] Oral 160 Output: Urine 600 1000 Other: Voiding Method Indwelling Catheter Indwelling Catheter Indwelling Catheter - Labs CBC & Chem 7: 06/24/23 04:40 06/24/23 04:40 Labs: Abnormal Lab Results - Last 24 Hours (Table) 06/23/23 06/23/23 06/24/23 Range/Units 16:51 20:13 04:40 Hgb 9.6 L (11.4-16.0) gm/dL Hct 31.1 L (34.0-46.0) % MCH 24.9 L (25.0-35.0) pg MCHC 30.9 L (31.0-37.0) g/dL RDW 20.8 H (11.5-15.5) % Sodium (137-145) mmol/L BUN (7-17) mg/dL Creatinine (0.52-1.04) mg/dL Glucose (74-99) mg/dL POC Glucose (mg/dL) 218 H 133 H (70-110) mg/dL 06/24/23 06/24/23 06/24/23 Range/Units 04:40 07:11 12:28 Hgb (11.4-16.0) gm/dL Hct (34.0-46.0) % MCH (25.0-35.0) pg MCHC (31.0-37.0) g/dL RDW (11.5-15.5) % Sodium 135 L (137-145) mmol/L BUN 2 L (7-17) mg/dL Creatinine 0.49 L (0.52-1.04) mg/dL Glucose 115 H (74-99) mg/dL POC Glucose (mg/dL) 152 H 145 H (70-110) mg/dL
[2023-06-24] MEDS: HYDROmorphone 0.5 MG/0.5 ML SYRINGE IVP PRN ×2 (17:14→20:21)
[2023-06-24 17:19] LABS: Glucose,Whole Blood 144 mg/dL (70-110)
--- NOTE | 2023-06-24 18:01 | P.PN ---
Progress Note - Text Progress Note Date: 06/24/23 This a 77-year-old female who is transferred from outside hospital. Patient points of abdominal pain nausea. The outside facility perform a CAT scan which showed possible partial small bowel charge. 06/13. Patient seen and examined. Lab work showed WBC 7.62, hemoglobin 9.2, platelet count 232. States pain is improved. Denies any nausea 06/14. Patient seen and examined.CT abdominal and pelvis done showed irregular periods the terminal ileum with possible underlying mass. Findings resulting in partial small bowel obstruction. Surgery planning colonoscopy later in the week June 15: I assumed care of the patient today. Patient's had no bowel movement for last 1 week. Very small amount of flatus. Has had intermittent upper abdominal pain. Not related to food. Decreased appetite. I did order a small bowel follow-through. Found to have small bowel mildly diffusely prominent. No filling defect reported.-Delayed transit time. We'll get a GI consultation also. Patient been placed in a full liquid diet per surgery. There is no white count, no fever. DC antibiotics. June 16: Patient seen earlier by Dr. Reinoso. He didn't fast diet. Patient still has some tenderness on deep palpation. I'm concerned about the computed tomography scan findings and given her clinical history. Consult GI. GI is planning to proceed with a colonoscopy tomorrow. June 17: Patient seen by me before procedure this morning. During the procedure patient underwent aspiration. Procedure to be abandoned. Discussed with Dr. Shiv Richter. Depending on how the patient is doing well in the facet endoscopy next 24-48 hours. June 18: I visited the patient last night. Doing well.. No trouble breathing. This morning sitting up in a chair. Breathing is stable. No nausea vomiting. Discussed with GI. Patient stable to proceed for endoscopy tomorrow. Medically cleared. No respiratory symptoms. June 19: This morning patient underwent colonoscopy by Dr. Shiv Richter. Discovered to have a circumferential ulcerated mass in the proximal cecum. Dr. Shiv Richter then called Dr. Dr. Reinoso, we will proceed with surgery on Thursday. Meantime patient is to remain on clear liquids. I discussed this with the patient several family members present at the bedside. Questions answered. June 20: Patient on clear liquid. Up to the bathroom. Pending surgery on Thursday. No nausea vomiting. Discussed with patient. June 21: On clear liquids. Nothing by mouth after midnight. Had some abdominal pain earlier. Pending surgery tomorrow. Otherwise comfortable. Ambulating. June 22: Large right colonic mass removed with right colectomy earlier today by Dr. Reinoso. Midline incision with dressing. Some abdominal pain. Patient has an epidural for pain. Clear liquid diet June 23: Remains an epidural for pain. No bowel movement or flatus. Clear liquids. June 24: Up in a recliner. Remains an epidural for pain. No nausea vomiting. No bowel movement or flatus. Patient for liquid diet per surgery. Connolly catheter in place. Active Medications Acetaminophen (Acetaminophen Tab 500 Mg Tab) 500 mg PO Q6HR PRN PRN Reason: Fever and/ or Pain Last Admin: 06/24/23 01:04 Dose: 500 mg Amlodipine Besylate (Amlodipine 5 Mg Tab) 5 mg PO DAILY [facility] Last Admin: 06/24/23 09:25 Dose: 5 mg Atorvastatin Calcium (Atorvastatin 20 Mg Tab) 20 mg PO HS [facility] Last Admin: 06/23/23 21:15 Dose: 20 mg Cyanocobalamin (Cyanocobalamin 500 Mcg Tab) 1,000 mcg PO DAILY [facility] Last Admin: 06/24/23 09:25 Dose: 1,000 mcg Diphenhydramine HCl (Diphenhydramine 50 Mg/Ml 1 Ml Vial) 12.5 mg IVP Q6HR PRN PRN Reason: Itching Last Admin: 06/23/23 17:17 Dose: 12.5 mg Famotidine (Famotidine 20 Mg Tab) 20 mg PO BID [facility] Last Admin: 06/24/23 09:25 Dose: 20 mg Heparin Sodium (Porcine) (Heparin Sodium,Porcine 5,000 Unit/Ml 1 Ml Vial) 5,000 unit SQ Q8HR [facility] Last Admin: 06/24/23 17:12 Dose: 5,000 unit Hydromorphone HCl (Hydromorphone 0.5 Mg/0.5 Ml Syringe) 0.5 mg IVP Q4H PRN PRN Reason: Severe Pain (Scale 7 to 10) Last Admin: 06/24/23 17:14 Dose: 0.5 mg Ropivacaine 250 mg/ Fentanyl Citrate 625 mcg/ Sodium Chloride 250 mls @ 0 mls/hr EPIDURAL .Q0M PRN; Protocol PRN Reason: Analgesia Last Admin: 06/23/23 14:26 Dose: 9 mls/hr Insulin Aspart (Insulin Aspart (Novolog) 100 Unit/Ml Vial) 0 unit SQ ACHS [facility]; Protocol Last Admin: 06/24/23 17:38 Dose: Not Given Naloxone HCl (Naloxone 0.4 Mg/Ml 1 Ml Vial) 0.2 mg IV Q2M PRN PRN Reason: Opioid Reversal Ondansetron HCl (Ondansetron 4 Mg/2 Ml Vial) 4 mg IVP Q6HR PRN PRN Reason: Nausea And Vomiting Last Admin: 06/23/23 15:51 Dose: 4 mg On examination: VITAL SIGNS: 98, 94, 18, 105/62, 95% room air GENERAL APPEARANCE: , Up in recliner epidural HEENT: Normal external appearance of nose and ear. Oral cavity normal EYES: Pupils equal. Conjunctiva normal. NECK: JVD not raised. Mass not palpable. RESPIRATORY: Respiratory effort normal. Lungs clear to auscultation. CARDIOVASCULAR: First and second sounds normal. No edema. ABDOMEN: Soft. Liver and spleen not palpable. Midline incision with dressing. Interval tenderness... No mass palpable. No guarding rigidity. Connolly catheter PSYCHIATRY: Alert and oriented x3. Mood and affect normal. INVESTIGATIONS, reviewed in the clinical context: June 24: White count 8.0 hemoglobin 9.6 platelets 201 potassium 4 creatinine 0.49 June 21: White count 4.7 hemoglobin 9.2. 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 No filling defect reported.-Delayed transit time. CT abdomen pelvis: Irregular appearance of the terminal ileum with possible underlying mass. Appreciated on the prior exam. Some ingestion miss entry enlarged lymph node. Gallstones. Assessment and plan: - Abdominal pain. No bowel movement for last 1 week. Computed tomography scan small bowel through results noted. Patient did have a colonoscopy recently. In [place].: Not improving. 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 Right colectomy for a right colon mass. Epidural in place. For liquids -Aspiration during colonoscopy. no fever. Good pulse ox: Complete recovery -Diabetes mellitus type 2, on oral hypoglycemic Follow Accu-Cheks and sliding scale. Hold Glucophage. -Normocytic anemia, likely from underlying malignancy -Essential hypertension Zestoretic. -Hypokalemia, replace -Hyperlipidemia Lipitor Epidural. Full liquids.
[2023-06-24 20:15] LABS: Glucose,Whole Blood 127 mg/dL (70-110)
[2023-06-24] MEDS: ATORVASTATIN 20 MG TAB PO SCH (20:27)
[2023-06-24] MEDS: ONDANSETRON 4 MG/2 ML VIAL IVP PRN (20:45)
[2023-06-25] MEDS: HYDROmorphone 0.5 MG/0.5 ML SYRINGE IVP PRN ×3 (00:34→08:59)
[2023-06-25] MEDS: ACETAMINOPHEN TAB 500 MG TAB PO PRN ×2 (02:11→09:00)
[2023-06-25 07:00] LABS: Glucose,Whole Blood 107 mg/dL (70-110)
[2023-06-25] MEDS: INSULIN ASPART (NovoLOG) 100 UNIT/ML VIAL SQ SCH ×4 (07:55→21:28)
[2023-06-25] MEDS: HEPARIN SODIUM,PORCINE 5,000 UNIT/ML 1 ML VIAL SQ SCH ×2 (09:00→16:49)
[2023-06-25] MEDS: CYANOCOBALAMIN 500 MCG TAB PO SCH (09:00)
[2023-06-25] MEDS: amLODIPine 5 MG TAB PO SCH (09:00)
[2023-06-25] MEDS: FAMOTIDINE 20 MG TAB PO SCH ×2 (09:00→21:27)
[2023-06-25 12:52] LABS: Glucose,Whole Blood 150 mg/dL (70-110)
--- NOTE | 2023-06-25 13:06 | P.PN ---
Subjective Progress Note Date: 06/25/23 CHIEF COMPLAINT: cecal mass HISTORY OF PRESENT ILLNESS: Patient postop day #3 status post right colectomy. Epidural was discontinued last night and Connolly catheter removed this morning. Patient does complain of more abdominal pain and left shoulder pain today since epidural stopped. She did not have any flatus this morning. She did have flatus yesterday. Denies any nausea or vomiting. Afebrile. Mildly tachycardic during the night. No labs for today. 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 PHYSICAL EXAM: VITAL SIGNS: Reviewed. GENERAL: Well-developed in no acute distress. ABDOMEN: Soft. Nondistended. Prevana wound vac intact ASSESSMENT: 1. Large right colon mass status post right colectomy 2. Incidental finding of Cholelithiasis on CT 3. 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 Signing provider agrees with the documented findings, assessment, and plan of care. Objective - Vital Signs Vital signs: Vital Signs Temp 97.7 F 06/25/23 06:55 Pulse 87 06/25/23 06:55 Resp 17 06/25/23 06:55 BP 107/65 06/25/23 06:55 Pulse Ox 99 06/25/23 06:55 FiO2 Intake & Output 06/24/23 06/25/23 06/25/23 18:59 06:59 18:59 Output Total 1400 1300 Balance -1400 -1300 Weight 84.822 kg Output: Urine 1400 1300 Uretheral (Connolly) 700 Other: Voiding Method Indwelling Catheter Indwelling Catheter - Labs CBC & Chem 7: 06/24/23 04:40 06/24/23 04:40 Labs: Abnormal Lab Results - Last 24 Hours (Table) 06/24/23 06/24/23 06/24/23 Range/Units 12:28 17:17 20:13 POC Glucose (mg/dL) 145 H 144 H 127 H (70-110) mg/dL
[2023-06-25] MEDS: HYDROmorphone 1 MG/ML 1 ML SYRINGE IVP PRN (13:28)
--- NOTE | 2023-06-25 16:12 | P.PN ---
Subjective Progress Note Date: 06/25/23 This a 77-year-old female who is transferred from outside hospital. Patient points of abdominal pain nausea. The outside facility perform a CAT scan which showed possible partial small bowel charge. 06/13. Patient seen and examined. Lab work showed WBC 7.62, hemoglobin 9.2, platelet count 232. States pain is improved. Denies any nausea 06/14. Patient seen and examined.CT abdominal and pelvis done showed irregular periods the terminal ileum with possible underlying mass. Findings resulting in partial small bowel obstruction. Surgery planning colonoscopy later in the week June 15: I assumed care of the patient today. Patient's had no bowel movement for last 1 week. Very small amount of flatus. Has had intermittent upper abdominal pain. Not related to food. Decreased appetite. I did order a small bowel follow-through. Found to have small bowel mildly diffusely prominent. No filling defect reported.-Delayed transit time. We'll get a GI consultation also. Patient been placed in a full liquid diet per surgery. There is no white count, no fever. DC antibiotics. June 16: Patient seen earlier by Dr. Reinoso. He didn't fast diet. Patient still has some tenderness on deep palpation. I'm concerned about the computed tomography scan findings and given her clinical history. Consult GI. GI is planning to proceed with a colonoscopy tomorrow. June 17: Patient seen by me before procedure this morning. During the procedure patient underwent aspiration. Procedure to be abandoned. Discussed with Dr. Shiv Richter. Depending on how the patient is doing well in the facet endoscopy next 24-48 hours. June 18: I visited the patient last night. Doing well.. No trouble breathing. This morning sitting up in a chair. Breathing is stable. No nausea vomiting. Discussed with GI. Patient stable to proceed for endoscopy tomorrow. Medically cleared. No respiratory symptoms. June 19: This morning patient underwent colonoscopy by Dr. Shiv Richter. Disco kaitlynn to have a circumferential ulcerated mass in the proximal cecum. Dr. Shiv Richter then called Dr. Dr. Reinoso, we will proceed with surgery on Thursday. Meantime patient is to remain on clear liquids. I discussed this with the patient several family members present at the bedside. Questions answered. June 20: Patient on clear liquid. Up to the bathroom. Pending surgery on Thursday. No nausea vomiting. Discussed with patient. June 21: On clear liquids. Nothing by mouth after midnight. Had some abdominal pain earlier. Pending surgery tomorrow. Otherwise comfortable. Ambulating. June 22: Large right colonic mass removed with right colectomy earlier today by Dr. Reinoso. Midline incision with dressing. Some abdominal pain. Patient has an epidural for pain. Clear liquid diet June 23: Remains an epidural for pain. No bowel movement or flatus. Clear liquids. June 24: Up in a recliner. Remains an epidural for pain. No nausea vomiting. No bowel movement or flatus. Patient for liquid diet per surgery. Connolly catheter in place. 06/25/2023 Patient is seen and evaluated sitting up in the chair today status post right colectomy for large colon mass. According to pathology report patient is positive for colon adenocarcinoma with general surgery following. Oncology was consulted and pending at this time. Patient is afebrile and reports feels as if she is starting to pass gas and denies any bowel movement as of yet. Patient did have epidural pump and Connolly catheter removed and reports has voided since. Patient with weakness has been up and walking with a walker. Patient is afebrile with no reported chest pain or shortness of breath. Patient maintained on liquid diet and has been advanced to full liquids and will continue. Review of systems: Constitutional: No reports of fatigue, fever, or chills Cardiovascular: No reports of chest pain or palpitations Respiratory: No reports of shortness of breath or cough GI: No reports of nausea, no vomiting, reports passing gas and no bowel movement as of yet : No reports of dysuria or retention, patient reports has urinated since Connolly removal today Neurovascular: reports of generalized weakness All medications have been reviewed Physical exam: GENERAL APPEARANCE: , Up in recliner awake, alert and oriented 3, well- developed, well-nourished, obese HEENT: Normal external appearance of nose and ear. Oral cavity normal EYES: Pupils equal. Conjunctiva normal. NECK: JVD not raised. Mass not palpable. RESPIRATORY: Respiratory effort normal. Lungs clear to auscultation. CARDIOVASCULAR: First and second sounds normal. No edema. ABDOMEN: Soft. Liver and spleen not palpable. Midline incision with dressing. Interval tenderness... No mass palpable. No guarding rigidity. PSYCHIATRY: Alert and oriented x3. Mood and affect normal. Assessment : - Abdominal pain. With concerns of colon mass status post right colectomy .pathology positive for colon adenocarcinoma -Aspiration during colonoscopy. no fever. Resolved -Diabetes mellitus type 2 history -Normocytic anemia, likely from underlying malignancy -Essential hypertension -Hypokalemia, improved -Hyperlipidemia -Obesity with a BMI of 30.2 -GI prophylaxis -DVT prophylaxis -Full code Plan: Patient being followed by general surgery and is status post right colectomy and pathology was found to be positive for colon adenocarcinoma Oncology consulted and pending at this time Continue Accu-Cheks before meals and at bedtime and sliding scale Continue full liquid diet and slowly advance per surgery recommendations Encourage continued incentive spirometer use at least 10 times every hour while awake Will follow-up on repeat labs and replace electrolytes per protocol PT/OT therapy evaluation for continued weakness Connolly has been removed today along with epidural pain pump and patient is voiding. Continue with IV narcotics for severe pain and oral [place] has been added. Wean off IV narcotics if possible Due to multiple complex medical issues, prognosis is guarded The impression and plan of care has been dictated by Elif Bills, Nurse Practitioner as directed. Dr. Rene MD I have performed a history and examination and MDM of this patient, discussed the same with the dictator, and agree with the dictator's assessment and plan as written ,documented as a scribe. Based on total visit time, I have performed more than 50% of the visit. Objective - Vital Signs Vital signs: Vital Signs Temp 97.7 F 06/25/23 06:55 Pulse 87 06/25/23 06:55 Resp 17 06/25/23 06:55 BP 107/65 06/25/23 06:55 Pulse Ox 99 06/25/23 06:55 FiO2 Intake & Output 06/24/23 06/25/23 06/25/23 18:59 06:59 18:59 Output Total 1400 1300 Balance -1400 -1300 Weight 84.822 kg Output: Urine 1400 1300 Uretheral (Connolly) 700 Other: Voiding Method Indwelling Catheter Indwelling Catheter - Labs CBC & Chem 7: 06/24/23 04:40 06/24/23 04:40 Labs: Abnormal Lab Results - Last 24 Hours (Table) 06/24/23 06/24/23 06/24/23 Range/Units 12:28 17:17 20:13 POC Glucose (mg/dL) 145 H 144 H 127 H (70-110) mg/dL
[2023-06-25] MEDS: HYDROcodone/APAP 5-325MG 1 EACH TAB PO PRN ×2 (16:56→21:28)
[2023-06-25 17:21] LABS: Glucose,Whole Blood 120 mg/dL (70-110)
[2023-06-25 20:43] LABS: Glucose,Whole Blood 136 mg/dL (70-110)
[2023-06-25] MEDS: ATORVASTATIN 20 MG TAB PO SCH (21:27)
[2023-06-26] MEDS: HEPARIN SODIUM,PORCINE 5,000 UNIT/ML 1 ML VIAL SQ SCH ×3 (00:22→16:56)
[2023-06-26 07:12] LABS: Glucose,Whole Blood 115 mg/dL (70-110)
[2023-06-26] MEDS: INSULIN ASPART (NovoLOG) 100 UNIT/ML VIAL SQ SCH ×4 (07:50→21:53)
--- NOTE | 2023-06-26 08:11 | P.CONS ---
History of Present Illness - Reason for Consult Consult date: 06/26/23 colon cancer - History of Present Illness The patient is a 77-year-old white female, who was transferred to this hospital from an outside institution. She had presented with abdominal pain, distention and nausea and vomiting, abdominal imaging showing evidence of a partial small bowel obstruction. She had a computed tomography scan on 06/13/23, showing partial small bowel obstruction, with irregularity of the terminal ileum and cecum, concerning for an underlying mass. had a colonoscopy some weeks ago at an outside hospital that was reported as negative. The patient had colonoscopy 2 during this admission. She was managed conservatively for her obstruction symptoms with improvement. Patient procedure had to be aborted because of risk of aspiration, but was negative on evaluation up to the hepatic flexure. Repeat procedure done on 06/19/23 however showed a circumferential ulcerated mass in the cecum. Biopsy was positive for moderately differentiated adenocarcinoma. Initial computed tomography scan had shown no evidence of metastatic disease. The patient was taken to surgery on 06/22/23. Final pathology showed a T3 tumor, without any associated perforation. 16/37 nodes were positive. The patient has had no untoward postoperative complications. She is passing gas and has started orals. She denied any prior history of malignancy previously. She reports a good performance status, and works in home care. She states that her last colonoscopy before this admission was more than 10 years ago. A sister had a history of colon cancer. Review of Systems Constitutional: Reports fatigue Eyes: denies blurred vision, denies pain Ears: deny: decreased hearing, ear discharge, earache, tinnitus Cardiovascular: Denies chest pain, Denies shortness of breath Gastrointestinal: Reports as per HPI, Reports abdominal pain, Reports nausea, Reports vomiting Genitourinary: Denies dysuria, Denies hematuria Menstruation: Reports postmenopausal Musculoskeletal: Denies myalgias Integumentary: Denies pruritus, Denies rash Neurological: Denies numbness, Denies weakness Psychiatric: Reports anxiety Endocrine: Reports fatigue Hematologic/Lymphatic: Reports as per HPI Past Medical History Past Medical History: Diabetes Mellitus, Hyperlipidemia, Hypertension Additional Past Medical History / Comment(s): type II DM. h-pylori History of Any Multi-Drug Resistant Organisms: None Reported Past Surgical History: Appendectomy, Section, Orthopedic Surgery Past Anesthesia/Blood Transfusion Reactions: No Reported Reaction Past Psychological History: No Psychological Hx Reported Smoking Status: Never smoker Past Alcohol Use History: None Reported Past Drug Use History: None Reported Medications and Allergies Home Medications Medication Instructions Recorded Confirmed Type Atorvastatin [Lipitor] 20 mg PO HS 06/12/23 06/12/23 History Clarithromycin [Biaxin] 500 mg PO Q12HR 06/12/23 06/12/23 History Cyanocobalamin (Vitamin B-12) 1,000 mcg PO DAILY 06/12/23 06/12/23 History [Vitamin B-12] Ferrous Sulfate [Iron (65 MG 325 mg PO TID 06/12/23 06/12/23 History Elemental)] Lisinopril-Hctz 20-12.5 mg 1 tab PO DAILY 06/12/23 06/12/23 History [Zestoretic 20-12.5] Meloxicam [Mobic] 15 mg PO DAILY 06/12/23 06/12/23 History Metamucil Fiber Gummies 1 tab PO DAILY 06/12/23 06/12/23 History Omeprazole 40 mg PO BID 06/12/23 06/12/23 History amLODIPine [Norvasc] 5 mg PO DAILY 06/12/23 06/12/23 History metFORMIN HCL ER [Glucophage XR] 500 mg PO W/SUPPER 06/12/23 06/12/23 History metroNIDAZOLE [Flagyl] 500 mg PO BID 06/12/23 06/12/23 History Allergies Allergy/AdvReac Type Severity Reaction Status Date / Time shellfish derived [Shellfish] Allergy Anaphylaxis Verified 06/12/23 15:50 Physical Exam Vitals: Vital Signs Temp Pulse Resp BP Pulse Ox 06/26/23 01:47 99.1 F 86 16 115/69 94 L 06/25/23 19:06 98.9 F 88 18 115/68 97 06/25/23 13:05 98.3 F 85 18 117/78 96 Intake and Output 06/25/23 06/26/23 06/26/23 22:59 06:59 14:59 Other: Voiding Method Bedside Commode - Constitutional General appearance: no acute distress - EENT Eyes: EOMI, PERRLA ENT: hearing grossly normal, normal oropharynx - Neck Neck: no lymphadenopathy Thyroid: bilateral: normal size - Respiratory Respiratory: bilateral: CTA - Cardiovascular Rhythm: regular Heart sounds: normal: S1, S2 - Gastrointestinal Abdominal binder present General gastrointestinal: decreased bowel sounds, soft - Integumentary Integumentary: normal - Neurologic Neurologic: CNII-XII intact - Musculoskeletal Musculoskeletal: strength equal bilaterally - Psychiatric Psychiatric: A&O x's 3, appropriate affect Results CBC & Chem 7: 06/24/23 04:40 06/24/23 04:40 Labs: Abnormal Lab Results - Last 24 Hours (Table) 06/25/23 06/25/23 06/25/23 Range/Units 12:51 17:19 20:42 POC Glucose (mg/dL) 150 H 120 H 136 H (70-110) mg/dL 06/26/23 Range/Units 07:10 POC Glucose (mg/dL) 115 H (70-110) mg/dL Comments: Small bowel follow-through results reviewed Pathology results reviewed Chest x-ray: report reviewed CT scan - abdomen: report reviewed CT scan - pelvis: report reviewed Assessment and Plan (1) Colon cancer Narrative/Plan: The patient is being seen for a recent diagnosis of carcinoma of the cecum, presenting with small bowel obstruction. Initial CAT scan did not show evidence of prostatic disease. The patient is status post resection with pathology as described in the HPI. - The pathology and implications were discussed in detail with the patient. She was quite tearful initially, as she was apparently unaware that she had a cancer. We discussed that at this time she doesn't appear to have any evident residual disease. Based on that, and the initial CAT scan findings, she would be considered curable. However she would be at high risk of recurrence with surgery alone, given the degree of lymph node involvement. Therefore adjuvant chemotherapy would be recommended to maximize her chances of long-term remission. - Given the extent of lymph node involvement, and the patient's good performance status at baseline, she would be recommended FOLFOX in the adjuvant setting. - She was advised of the chemo would start only after she is adequately healed up from the surgery, which would typically be a period of at least 4-6 weeks. She will be seen in the office at that time. We will schedule a PET scan prior to her office visit to check for any metastatic disease developing in the interim. Current Visit: Yes Status: Acute Code(s): C18.9 - MALIGNANT NEOPLASM OF COLON, UNSPECIFIED SNOMED Code(s): 598025450 Plan: Defer to the admitting service and the surgical service for ongoing postop care.
[2023-06-26] MEDS: HYDROcodone/APAP 5-325MG 1 EACH TAB PO PRN ×3 (08:28→21:59)
[2023-06-26] MEDS: amLODIPine 5 MG TAB PO SCH (09:16)
[2023-06-26] MEDS: FAMOTIDINE 20 MG TAB PO SCH ×2 (09:16→21:53)
[2023-06-26] MEDS: CYANOCOBALAMIN 500 MCG TAB PO SCH (09:16)
[2023-06-26] MEDS: HYDROmorphone 1 MG/ML 1 ML SYRINGE IVP PRN (10:41)
[2023-06-26 11:28] LABS: Glucose,Whole Blood 160 mg/dL (70-110)
--- NOTE | 2023-06-26 13:21 | P.PN ---
Subjective Progress Note Date: 06/26/23 CHIEF COMPLAINT: cecal mass HISTORY OF PRESENT ILLNESS: Patient postop day #4 status post right colectomy. Patient reports her pain is controlled. She denies any nausea or vomiting. She is tolerating full liquids. She did have a small liquidy bowel movement. Positive flatus. Afebrile. 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 Patient seen by oncology service the recommending adjuvant chemotherapy PHYSICAL EXAM: VITAL SIGNS: Reviewed. GENERAL: Well-developed in no acute distress. ABDOMEN: Soft. Nondistended. Prevana wound vac intact ASSESSMENT: 1. Large right colon mass status post right colectomy 2. Colon Adenocarcinoma with lymph node involvement PLAN: -Advance diet to regular -Continue pain management -Encouraged patient to ambulate and increase activity level -Encouraged patient to use incentive spirometer -Continue Prevana wound vac for 3 more days -DVT prophylaxis subcu heparin and GI prophylaxis Pepcid Physician Assistant Baseball Coach note has been reviewed by physician. Signing provider agrees with the documented findings, assessment, and plan of care. Objective - Vital Signs Vital signs: Vital Signs Temp 98.3 F 06/26/23 08:00 Pulse 88 06/26/23 08:00 Resp 16 06/26/23 08:00 BP 111/69 06/26/23 08:00 Pulse Ox 96 06/26/23 08:00 FiO2 Intake & Output 06/25/23 06/26/23 06/26/23 18:59 06:59 18:59 Other: Voiding Method Bedside Commode Bedside Commode - Labs CBC & Chem 7: 06/24/23 04:40 06/24/23 04:40 Labs: Abnormal Lab Results - Last 24 Hours (Table) 06/25/23 06/25/23 06/25/23 Range/Units 12:51 17:19 20:42 POC Glucose (mg/dL) 150 H 120 H 136 H (70-110) mg/dL 06/26/23 Range/Units 07:10 POC Glucose (mg/dL) 115 H (70-110) mg/dL
[2023-06-26 17:02] LABS: Glucose,Whole Blood 164 mg/dL (70-110)
[2023-06-26 20:16] LABS: Glucose,Whole Blood 96 mg/dL (70-110)
[2023-06-26] MEDS: ATORVASTATIN 20 MG TAB PO SCH (21:53)
[2023-06-27] MEDS: HEPARIN SODIUM,PORCINE 5,000 UNIT/ML 1 ML VIAL SQ SCH ×3 (00:03→17:22)
--- NOTE | 2023-06-27 06:30 | P.PN ---
Subjective Progress Note Date: 06/26/23 This a 77-year-old female who is transferred from outside hospital. Patient points of abdominal pain nausea. The outside facility perform a CAT scan which showed possible partial small bowel charge. 06/13. Patient seen and examined. Lab work showed WBC 7.62, hemoglobin 9.2, platelet count 232. States pain is improved. Denies any nausea 06/14. Patient seen and examined.CT abdominal and pelvis done showed irregular periods the terminal ileum with possible underlying mass. Findings resulting in partial small bowel obstruction. Surgery planning colonoscopy later in the week June 15: I assumed care of the patient today. Patient's had no bowel movement for last 1 week. Very small amount of flatus. Has had intermittent upper abdominal pain. Not related to food. Decreased appetite. I did order a small bowel follow-through. Found to have small bowel mildly diffusely prominent. No filling defect reported.-Delayed transit time. We'll get a GI consultation also. Patient been placed in a full liquid diet per surgery. There is no white count, no fever. DC antibiotics. June 16: Patient seen earlier by Dr. Reinoso. He didn't fast diet. Patient still has some tenderness on deep palpation. I'm concerned about the computed tomography scan findings and given her clinical history. Consult GI. GI is planning to proceed with a colonoscopy tomorrow. June 17: Patient seen by me before procedure this morning. During the procedure patient underwent aspiration. Procedure to be abandoned. Discussed with Dr. Shiv Richter. Depending on how the patient is doing well in the facet endoscopy next 24-48 hours. June 18: I visited the patient last night. Doing well.. No trouble breathing. This morning sitting up in a chair. Breathing is stable. No nausea vomiting. Discussed with GI. Patient stable to proceed for endoscopy tomorrow. Medically cleared. No respiratory symptoms. June 19: This morning patient underwent colonoscopy by Dr. Shiv Richter. Disco kaitlynn to have a circumferential ulcerated mass in the proximal cecum. Dr. Shiv Richter then called Dr. Dr. Reinoso, we will proceed with surgery on Thursday. Meantime patient is to remain on clear liquids. I discussed this with the patient several family members present at the bedside. Questions answered. June 20: Patient on clear liquid. Up to the bathroom. Pending surgery on Thursday. No nausea vomiting. Discussed with patient. June 21: On clear liquids. Nothing by mouth after midnight. Had some abdominal pain earlier. Pending surgery tomorrow. Otherwise comfortable. Ambulating. June 22: Large right colonic mass removed with right colectomy earlier today by Dr. Reinoso. Midline incision with dressing. Some abdominal pain. Patient has an epidural for pain. Clear liquid diet June 23: Remains an epidural for pain. No bowel movement or flatus. Clear liquids. June 24: Up in a recliner. Remains an epidural for pain. No nausea vomiting. No bowel movement or flatus. Patient for liquid diet per surgery. Connolly catheter in place. 06/25/2023 Patient is seen and evaluated sitting up in the chair today status post right colectomy for large colon mass. According to pathology report patient is positive for colon adenocarcinoma with general surgery following. Oncology was consulted and pending at this time. Patient is afebrile and reports feels as if she is starting to pass gas and denies any bowel movement as of yet. Patient did have epidural pump and Connolly catheter removed and reports has voided since. Patient with weakness has been up and walking with a walker. Patient is afebrile with no reported chest pain or shortness of breath. Patient maintained on liquid diet and has been advanced to full liquids and will continue. 06/26/2023 Patient is seen in follow-up this morning currently sitting up in the bed and diet has been advanced and tolerating. Patient reports is having some gas and had some dark stool although mostly liquid and gelatinous with no blood noted. Patient being followed by general surgery and oncology has been consulted. Pathology was positive for colon adenocarcinoma and will need outpatient follow- up with further testing including PET scan. Patient has been encouraged to increase activity as tolerated and patient has been up walking the halls with a walker with standby assistance. Patient is doing relatively well and looking forward to going home. Patient is asking when she can go home. Will await clearance from consultations on discharge planning. Patient is afebrile with no reported chest pain or shortness of breath. Patient is tolerating diet and encourage small frequent meals with no reported nausea or vomiting. Review of systems: Constitutional: No reports of fatigue, fever, or chills Cardiovascular: No reports of chest pain or palpitations Respiratory: No reports of shortness of breath or cough GI: No reports of nausea, no vomiting, reports passing gas and no bowel movement as of yet : No reports of dysuria or retention, patient reports has been urinating since Connolly removal yesterday Neurovascular: reports of generalized weakness All medications have been reviewed Physical exam: GENERAL APPEARANCE: , Up in bed awake, alert and oriented 3, well-developed, well-nourished, obese HEENT: Normal external appearance of nose and ear. Oral cavity normal EYES: Pupils equal. Conjunctiva normal. NECK: JVD not raised. Mass not palpable. RESPIRATORY: Respiratory effort normal. Lungs clear to auscultation. CARDIOVASCULAR: First and second sounds normal. No edema. ABDOMEN: Soft. Nondistended, positive bowel sounds noted. Midline incision with dressing is dry and intact. Interval tenderness... No mass palpable. No guarding rigidity. PSYCHIATRY: Alert and oriented x3. Mood and affect normal. Assessment : - Abdominal pain. With concerns of colon mass status post right colectomy .pathology positive for colon adenocarcinoma -Aspiration during colonoscopy. Resolved -Diabetes mellitus type 2 history -Normocytic anemia, likely from underlying malignancy -Essential hypertension -Hypokalemia, improved -Hyperlipidemia -Obesity with a BMI of 30.2 -GI prophylaxis -DVT prophylaxis -Full code Plan: Patient being followed by general surgery and is status post right colectomy and pathology was found to be positive for colon adenocarcinoma Oncology consulted and recommending outpatient follow-up including PET scan and further discussion of treatment options Continue Accu-Cheks before meals and at bedtime and sliding scale Continue to slowly advance per surgery recommendations. Patient is tolerating and starting to have some form of stool noted with positive bowel sounds Encourage continued incentive spirometer use at least 10 times every hour while awake Will follow-up on repeat labs and replace electrolytes per protocol PT/OT therapy evaluation for continued weakness. Patient is doing well with standby assist using a walker and has been up and walking frequently in the halls Continue with pain management and wean off IV narcotics. Continue stool softeners and bowel regimen Due to multiple complex medical issues, prognosis is guarded The impression and plan of care has been dictated by Elif Bills, Nurse Practitioner as directed. Dr. Hua MD I have performed a history and examination and MDM of this patient, discussed th e with the dictator, and agree with the dictator's assessment and plan as written ,documented as a scribe. Based on total visit time, I have performed more than 50% of the visit. Objective - Vital Signs Vital signs: Vital Signs Temp 99 F 06/27/23 02:03 Pulse 83 06/27/23 02:03 Resp 16 06/27/23 02:03 BP 118/69 06/27/23 02:03 Pulse Ox 92 L 06/27/23 02:03 FiO2 Intake & Output 06/26/23 06/26/23 06/27/23 06:59 18:59 06:59 Weight 84.822 kg Other: Voiding Method Bedside Commode Bedside Commode Bedside Commode - Labs CBC & Chem 7: 06/24/23 04:40 06/24/23 04:40 Labs: Abnormal Lab Results - Last 24 Hours (Table) 06/26/23 06/26/23 06/26/23 Range/Units 07:10 11:26 17:01 POC Glucose (mg/dL) 115 H 160 H 164 H (70-110) mg/dL
[2023-06-27 07:13] LABS: Glucose,Whole Blood 127 mg/dL (70-110)
[2023-06-27] MEDS: INSULIN ASPART (NovoLOG) 100 UNIT/ML VIAL SQ SCH ×4 (07:55→20:15)
[2023-06-27] MEDS: FAMOTIDINE 20 MG TAB PO SCH ×2 (09:11→20:13)
[2023-06-27] MEDS: HYDROcodone/APAP 5-325MG 1 EACH TAB PO PRN ×3 (09:11→18:00)
[2023-06-27] MEDS: amLODIPine 5 MG TAB PO SCH (09:11)
[2023-06-27] MEDS: CYANOCOBALAMIN 500 MCG TAB PO SCH (09:11)
[2023-06-27 10:00] LABS: Basophils # (A) 0.03 X 10*3/uL (0.00-0.10); Basophils % (A) 0.5 %; Eosinophils # (A) 0.26 X 10*3/uL (0.04-0.35); Eosinophils % (A) 4.6 %; HGB 8.5 d/dL (12.0-15.0); Lymphocytes # (A) 1.43 X 10*3/uL (0.90-5.00); Lymphocytes % (A) 25.5 %; MCH 24.1 pg (27.0-32.0); MCHC 30.4 d/dL (32.0-37.0); MCV 79.5 FL (80.0-97.0); Mean Platelet Volume 11.2 FL (9.5-12.2); Monocytes % (A) 10.7 %; NRBC Per 100 WBC 0 X 10*3/uL (0.00-0.01); Neutrophils # (A) 3.26 X 10*3/uL (1.80-7.70); Neutrophils % (A) 58.3 %; Platelet Count 195 X 10*3/uL (140-440); RBC 3.52 X 10*6/uL (4.10-5.20); RDW 22.5 % (11.5-14.5)
[2023-06-27 10:02] LABS: Blood Urea Nitrogen 4.2 mg/dL (9.0-27.0); Calcium 8.7 mg/dL (8.7-10.3); Carbon Dioxide 26.4 mmol/L (21.6-31.8); Chloride 104 mmol/L (96-109); Glucose 98 mg/dL (70-110); Magnesium 1.8 mg/dL (1.5-2.4); Potassium 3.9 mmol/L (3.5-5.5); Sodium 140 mmol/L (135-145)
[2023-06-27 12:05] LABS: Glucose,Whole Blood 133 mg/dL (70-110)
--- NOTE | 2023-06-27 15:50 | PN ---
PROGRESS NOTE DATE OF SERVICE: 06/27/2023 SUBJECTIVE: This is a 77-year-old woman, who was admitted after colectomy and had adenocarcinoma. No chest pain. No palpitations. No fever. OBJECTIVE: VITAL SIGNS: Pulse is 80, blood pressure is 120/70, respirations 18. CHEST: Clear to auscultation. CARDIOVASCULAR: S1 and S2 normal. ABDOMEN: Soft, status post surgery. LABORATORY DATA: Reviewed. ASSESSMENT: 1. Colon cancer, status post right colectomy, adenocarcinoma. 2. Aspiration during colonoscopy, improved. 3. Diabetes mellitus, type 2. 4. Hypertension. 5. Multiple medical issues. RECOMMENDATIONS: Recommend to continue current management and current symptomatic treatment. Otherwise, I would recommend repeat labs tomorrow. Otherwise, continue the rest of the medications. Hematology/Oncology input appreciated. Further recommendations will follow. MMODL / IJN: [id number] /
--- NOTE | 2023-06-27 16:09 | P.PN ---
Progress Note - Text Progress Note Date: 06/27/23 1. Large right colon mass status post right colectomy 2. Colon Adenocarcinoma with lymph node involvement PLAN: -Regular diet -Continue pain management -Encouraged patient to ambulate and increase activity level -Encouraged patient to use incentive spirometer -Continue Prevana wound vac for 3 more days -DVT prophylaxis subcu heparin and GI prophylaxis Pepcid HPI: No acute events overnight PHYSICAL EXAM: VITAL SIGNS: Reviewed. GENERAL: Well-developed in no acute distress. ABDOMEN: Soft. Nondistended. Prevana wound vac intact
[2023-06-27 17:18] LABS: Glucose,Whole Blood 127 mg/dL (70-110)
[2023-06-27] MEDS: ATORVASTATIN 20 MG TAB PO SCH (20:13)
[2023-06-27 20:16] LABS: Glucose,Whole Blood 144 mg/dL (70-110)
[2023-06-28] MEDS: HEPARIN SODIUM,PORCINE 5,000 UNIT/ML 1 ML VIAL SQ SCH ×4 (00:04→23:51)
[2023-06-28] MEDS: HYDROcodone/APAP 5-325MG 1 EACH TAB PO PRN ×2 (00:08→08:37)
[2023-06-28 07:12] LABS: Glucose,Whole Blood 110 mg/dL (70-110)
[2023-06-28] MEDS: INSULIN ASPART (NovoLOG) 100 UNIT/ML VIAL SQ SCH ×4 (07:52→22:35)
[2023-06-28] MEDS: amLODIPine 5 MG TAB PO SCH (08:32)
[2023-06-28] MEDS: FAMOTIDINE 20 MG TAB PO SCH ×2 (08:32→20:30)
[2023-06-28] MEDS: CYANOCOBALAMIN 500 MCG TAB PO SCH (08:32)
--- NOTE | 2023-06-28 09:33 | P.PN ---
Progress Note - Text Progress Note Date: 06/28/23 The patient [place] stable. She has no acute complaints. On exam vital signs are stable. Abdomen soft. Incision is clean. Status post right colectomy for colon cancer. Patient will be discharged home tomorrow.
[2023-06-28 10:06] LABS: Basophils # (A) 0.03 X 10*3/uL (0.00-0.10); Basophils % (A) 0.6 %; Eosinophils # (A) 0.17 X 10*3/uL (0.04-0.35); Eosinophils % (A) 3.2 %; HCT 29.4 % (37.2-46.3); HGB 8.8 d/dL (12.0-15.0); Lymphocytes # (A) 1.81 X 10*3/uL (0.90-5.00); Lymphocytes % (A) 34.2 %; MCH 23.8 pg (27.0-32.0); MCHC 29.9 d/dL (32.0-37.0); MCV 79.7 FL (80.0-97.0); Monocytes # (A) 0.45 X 10*3/uL (0.20-1.00); Monocytes % (A) 8.5 %; NRBC Per 100 WBC 0 X 10*3/uL (0.00-0.01); Neutrophils # (A) 2.83 X 10*3/uL (1.80-7.70); Neutrophils % (A) 53.3 %; Platelet Count 224 X 10*3/uL (140-440); RBC 3.69 X 10*6/uL (4.10-5.20); RDW 22.1 % (11.5-14.5)
[2023-06-28 12:27] LABS: Glucose,Whole Blood 117 mg/dL (70-110)
[2023-06-28] MEDS: ONDANSETRON 4 MG/2 ML VIAL IVP PRN ×3 (13:31→22:36)
[2023-06-28] MEDS: HYDROmorphone 1 MG/ML 1 ML SYRINGE IVP PRN ×4 (13:55→23:40)
--- NOTE | 2023-06-28 15:13 | XR ---
EXAMINATION TYPE: XR chest 1V portable DATE OF EXAM: 06/28/2023 COMPARISON: 06/17/2023 HISTORY: TECHNIQUE: Single frontal view of the chest is obtained. FINDINGS: There is no focal air space opacity, pleural effusion, or pneumothorax seen. The cardiac silhouette size is within normal limits. The osseous structures are intact. IMPRESSION: No acute process.
[2023-06-28 15:59] LABS: Creatine Kinase MB 0.6 ng/mL (0.0-3.4); Troponin I <0.012 ng/mL (0.000-0.034)
[2023-06-28 17:02] LABS: Glucose,Whole Blood 120 mg/dL (70-110)
[2023-06-28] MEDS ORDERED: METOCLOPRAMIDE 5 MG/ML 2 ML VIAL IM PRN (17:48)
--- NOTE | 2023-06-28 18:25 | XR ---
EXAMINATION TYPE: XR abdomen 2V DATE OF EXAM: 06/28/2023 6:19 PM CLINICAL INDICATION:Female, 77 years old with history of Abdominal pain/post surgery; [facility] COMPARISON: 06/13/2023 TECHNIQUE: Two views of the abdomen were obtained. FINDINGS: Postsurgical changes most consistent delbert present. Gaseous loops of large and small chuyita l present within the abdomen. No abnormal calcifications are radiopaque unexpected foreign bodies. IMPRESSION: Postsurgical changes with gaseous dilation of loops of bowel throughout the abdomen. Correlate for il eus.
[2023-06-28 20:24] LABS: Glucose,Whole Blood 145 mg/dL (70-110)
[2023-06-28] MEDS: ATORVASTATIN 20 MG TAB PO SCH (20:29)
[2023-06-28] MEDS: PANTOPRAZOLE 40 MG/10 ML VIAL IVP SCH (20:30)
--- NOTE | 2023-06-28 23:26 | PN ---
PROGRESS NOTE DATE OF SERVICE: 06/28/2023 SUBJECTIVE: This is a 77-year-old woman who was admitted with colon cancer, had surgery. The patient improved significantly. No chest pain, no palpitations, no fever. OBJECTIVE: VITAL SIGNS: Pulse 79, blood pressure 134/70, respirations 18. CHEST: Clear to auscultation. CARDIOVASCULAR: S1, S2. ABDOMEN: Soft, status post surgery. LABORATORY DATA: Reviewed. ASSESSMENT: 1. Colon cancer, status post right colectomy and adenocarcinoma. 2. Aspiration during colonoscopy, improved. 3. Diabetes mellitus, type 2. 4. Hypertension. 5. Multiple medical issues. RECOMMENDATIONS: Recommended to continue current management, continue symptomatic treatment. Repeat labs. Possible discharge in the next 24-48 hours and closely follow with oncology and surgery. MMODL / IJN: [id number] /
[2023-06-28] MEDS: METOCLOPRAMIDE 5 MG/ML 2 ML VIAL IVP PRN (23:40)
[2023-06-29] MEDS: ONDANSETRON 4 MG/2 ML VIAL IVP PRN (03:07)
[2023-06-29] MEDS: HYDROmorphone 1 MG/ML 1 ML SYRINGE IVP PRN ×2 (03:07→06:07)
[2023-06-29] MEDS: METOCLOPRAMIDE 5 MG/ML 2 ML VIAL IVP PRN (06:06)
[2023-06-29] MEDS: HEPARIN SODIUM,PORCINE 5,000 UNIT/ML 1 ML VIAL SQ SCH ×2 (07:33→17:43)
[2023-06-29] MEDS: INSULIN ASPART (NovoLOG) 100 UNIT/ML VIAL SQ SCH ×4 (07:33→20:53)
[2023-06-29 07:37] LABS: Glucose,Whole Blood 130 mg/dL (70-110)
[2023-06-29] MEDS: PANTOPRAZOLE 40 MG/10 ML VIAL IVP SCH ×2 (08:29→20:53)
[2023-06-29] MEDS: amLODIPine 5 MG TAB PO SCH (08:29)
[2023-06-29] MEDS: CYANOCOBALAMIN 500 MCG TAB PO SCH (08:29)
[2023-06-29] MEDS: FAMOTIDINE 20 MG TAB PO SCH ×2 (08:29→20:54)
[2023-06-29] MEDS ORDERED: ONDANSETRON 4 MG/2 ML VIAL IVP PRN (09:32)
[2023-06-29 11:07] LABS: Blood Urea Nitrogen 5.8 mg/dL (9.0-27.0); Calcium 9.3 mg/dL (8.7-10.3); Carbon Dioxide 26.5 mmol/L (21.6-31.8); Chloride 99 mmol/L (96-109); Glucose 122 mg/dL (70-110); Potassium 4.4 mmol/L (3.5-5.5); Sodium 137 mmol/L (135-145)
[2023-06-29 11:21] LABS: Basophils # (A) 0.03 X 10*3/uL (0.00-0.10); Basophils % (A) 0.3 %; Eosinophils # (A) 0.02 X 10*3/uL (0.04-0.35); Eosinophils % (A) 0.2 %; HCT 33.2 % (37.2-46.3); HGB 9.8 d/dL (12.0-15.0); Lymphocytes # (A) 1.12 X 10*3/uL (0.90-5.00); Lymphocytes % (A) 9.5 %; MCH 23.5 pg (27.0-32.0); MCHC 29.5 d/dL (32.0-37.0); MCV 79.6 FL (80.0-97.0); Mean Platelet Volume 10.4 FL (9.5-12.2); Monocytes # (A) 0.99 X 10*3/uL (0.20-1.00); Monocytes % (A) 8.4 %; NRBC Per 100 WBC 0 X 10*3/uL (0.00-0.01); Neutrophils # (A) 9.57 X 10*3/uL (1.80-7.70); Neutrophils % (A) 81.3 %; Platelet Count 286 X 10*3/uL (140-440); RBC 4.17 X 10*6/uL (4.10-5.20); RDW 21.8 % (11.5-14.5); WBC 11.77 X 10*3/uL (4.50-10.00)
[2023-06-29 11:34] LABS: Glucose,Whole Blood 149 mg/dL (70-110)
[2023-06-29] MEDS: ACETAMINOPHEN TAB 500 MG TAB PO PRN (11:46)
--- NOTE | 2023-06-29 11:47 | P.CRDCN ---
History of Present Illness History of present illness: HISTORY OF PRESENT ILLNESS: This is a 77-year-old female with a past medical history significant for hypertension and hyperlipidemia. Patient does not follow with a keno dealer. We have been asked to see the patient in consultation for chest pain. Patient examined at the bedside. Patient is admitted to the hospital secondary to colon cancer and is status post right colectomy. Patient states she had an episode of chest pain yesterday that was in the epigastric region. She thinks this is related to her hiatal hernia. She states the pain only lasted for a short time and resolved on its own. She has not had any further chest pain since that time. EKG performed revealed sinus mechanism with no ST-T wave changes. Patient's troponin was negative. Her vital signs this morning are stable. REVIEW OF SYSTEMS: At the time of my exam: CONSTITUTIONAL: Denies fever or chills. HEENT: Denies blurred vision, vision changes, or eye pain. Denies hemoptysis CARDIOVASCULAR: Denies chest pain. Denies orthopnea. Denies PND. Denies palpitations RESPIRATORY: Denies shortness of breath. GASTROINTESTINAL: Denies abdominal pain. Denies nausea or vomiting. HEMATOLOGIC: Denies bleeding disorders. GENITOURINARY: Denies any blood in urine. SKIN: Denies pruitis. Denies rash. PHYSICAL EXAM: VITAL SIGNS: Reviewed. GENERAL: Well-developed in no acute distress. HEENT: Head is normocephalic. Pupils are equal, round. Sclerae anicteric. Mucous membranes of the mouth are moist. Neck supple. No JVD or thyromegaly LUNGS: Respirations even and unlabored. Lungs essentially clear to auscultation bilaterally. HEART: Regular rate and rhythm. S1 and S2 heard. ABDOMEN: Soft. Nondistended. Nontender. EXTREMITIES: Normal range of motion. No clubbing or cyanosis. Peripheral pulses intact. No lower extremity edema NEUROLOGIC: Awake and alert. Oriented x 3. ASSESSMENT: Colon cancer, status post right colectomy Chest pain, atypical, troponin negative History of hypertension History of hyperlipidemia PLAN: Continue current cardiac medications An acute coronary event has been ruled out Patient is stable from a cardiac standpoint with no further inpatient recommen dations We will sign off. Please reconsult if needed. Nurse practitioner note has been reviewed by physician. Signing provider agrees with the documented findings, assessment, and plan of care. Past Medical History Past Medical History: Diabetes Mellitus, Hyperlipidemia, Hypertension Additional Past Medical History / Comment(s): type II DM. h-pylori History of Any Multi-Drug Resistant Organisms: None Reported Past Surgical History: Appendectomy, Section, Orthopedic Surgery Past Anesthesia/Blood Transfusion Reactions: No Reported Reaction Past Psychological History: No Psychological Hx Reported Smoking Status: Never smoker Past Alcohol Use History: None Reported Past Drug Use History: None Reported Medications and Allergies Home Medications Medication Instructions Recorded Confirmed Type Atorvastatin [Lipitor] 20 mg PO HS 06/12/23 06/12/23 History Clarithromycin [Biaxin] 500 mg PO Q12HR 06/12/23 06/12/23 History Cyanocobalamin (Vitamin B-12) 1,000 mcg PO DAILY 06/12/23 06/12/23 History [Vitamin B-12] Ferrous Sulfate [Iron (65 MG 325 mg PO TID 06/12/23 06/12/23 History Elemental)] Lisinopril-Hctz 20-12.5 mg 1 tab PO DAILY 06/12/23 06/12/23 History [Zestoretic 20-12.5] Meloxicam [Mobic] 15 mg PO DAILY 06/12/23 06/12/23 History Metamucil Fiber Gummies 1 tab PO DAILY 06/12/23 06/12/23 History Omeprazole 40 mg PO BID 06/12/23 06/12/23 History amLODIPine [Norvasc] 5 mg PO DAILY 06/12/23 06/12/23 History metFORMIN HCL ER [Glucophage XR] 500 mg PO W/SUPPER 06/12/23 06/12/23 History metroNIDAZOLE [Flagyl] 500 mg PO BID 06/12/23 06/12/23 History HYDROcodone/APAP 5-325MG [Gays 1 tab PO Q6HR PRN 3 Days #12 tab 06/26/23 Rx 5-325] Allergies Allergy/AdvReac Type Severity Reaction Status Date / Time shellfish derived [Shellfish] Allergy Anaphylaxis Verified 06/12/23 15:50 Physical Exam Vitals: Vital Signs Temp Pulse Pulse Resp BP BP Pulse Ox 06/29/23 06:57 99.0 F 103 H 18 136/67 94 L 06/29/23 01:37 98.8 F 60 18 125/69 91 L 06/28/23 19:30 98.0 F 94 17 176/86 96 06/28/23 14:25 83 131/74 100 06/28/23 14:00 83 18 154/79 100 06/28/23 13:45 84 144/80 99 06/28/23 13:40 101 H 145/82 97 06/28/23 11:35 98 F 89 20 129/85 98 Intake and Output 06/28/23 06/29/23 06/29/23 22:59 06:59 14:59 Other: Voiding Method Toilet Results 06/29/23 06:22 06/29/23 06:22 Cardiac Enzymes 06/28/23 Range/Units 14:32 CK-MB (CK-2) 0.6 (0.0-3.4) ng/mL Troponin I <0.012 (0.000-0.034) ng/mL CBC 06/28/23 Range/Units 05:46 WBC 5.30 (4.50-10.00) X 10*3/uL RBC 3.69 L (4.10-5.20) X 10*6/uL Hgb 8.8 L (12.0-15.0) d/dL Hct 29.4 L (37.2-46.3) % Plt Count 224 (140-440) X 10*3/uL Current Medications Generic Name Dose Route Start Last Admin Trade Name Freq PRN Reason Stop Dose Admin Acetaminophen 500 mg 06/18/23 20:03 06/25/23 09:00 Acetaminophen Tab 500 Mg Tab PO 500 mg Q6HR PRN Administration Fever and/ or Pain Hydrocodone Bitart/Acetaminophen 1 each 06/25/23 09:02 06/28/23 08:37 Hydrocodone/Apap 5-325mg 1 Each Tab PO 1 each Q4HR PRN Administration Pain Scale 1-6 Amlodipine Besylate 5 mg 06/14/23 09:00 06/29/23 08:29 Amlodipine 5 Mg Tab PO 5 mg DAILY IGNACIA Administration Atorvastatin Calcium 20 mg 06/13/23 21:00 06/28/23 20:29 Atorvastatin 20 Mg Tab PO 20 mg HS IGANCIA Administration Cyanocobalamin 1,000 mcg 06/13/23 13:45 06/29/23 08:29 Cyanocobalamin 500 Mcg Tab PO 1,000 mcg DAILY IGNACIA Administration Diphenhydramine HCl 12.5 mg 06/22/23 11:50 06/23/23 17:17 Diphenhydramine 50 Mg/Ml 1 Ml Vial IVP 12.5 mg Q6HR PRN Administration Itching Famotidine 20 mg 06/15/23 21:00 06/29/23 08:29 Famotidine 20 Mg Tab PO 20 mg BID IGNACIA Administration Heparin Sodium (Porcine) 5,000 unit 06/22/23 16:00 06/29/23 07:33 Heparin Sodium,Porcine 5,000 Unit/Ml 1 Ml Vial SQ Not Given Q8HR IGNACIA Hydromorphone HCl 1 mg 06/25/23 09:01 06/29/23 06:07 Hydromorphone 1 Mg/Ml 1 Ml Syringe IVP 1 mg Q3H PRN Administration Severe Pain (Scale 7 to 10) Ropivacaine 250 mg/ Fentanyl 250 mls @ 0 mls/hr 06/22/23 12:00 06/23/23 14:26 Citrate 625 mcg/ Sodium EPIDURAL 9 mls/hr Chloride .Q0M PRN Administration Analgesia Protocol Per Protocol Insulin Aspart 0 unit 06/12/23 21:00 06/29/23 07:33 Insulin Aspart (Novolog) 100 Unit/Ml Vial SQ Not Given [facility] Protocol Metoclopramide HCl 10 mg 06/28/23 18:39 06/29/23 06:06 Metoclopramide 5 Mg/Ml 2 Ml Vial IVP 10 mg Q6HR PRN Administration Nausea And Vomiting Naloxone HCl 0.2 mg 06/22/23 11:50 Naloxone 0.4 Mg/Ml 1 Ml Vial IV Q2M PRN Opioid Reversal Ondansetron HCl 4 mg 06/28/23 17:54 06/29/23 03:07 Ondansetron 4 Mg/2 Ml Vial IVP 4 mg Q4HR PRN Administration Nausea And Vomiting Pantoprazole Sodium 40 mg 06/28/23 21:00 06/29/23 08:29 Pantoprazole 40 Mg/10 Ml Vial IVP 40 mg BID [facility] Administration Intake and Output 06/28/23 06/29/23 06/29/23 22:59 06:59 14:59 Other: Voiding Method Toilet 06/28/23 05:46 06/27/23 05:41
[2023-06-29] MEDS ORDERED: SODIUM CHLORIDE 0.9% 1,000 ML IV SCH (12:30)
[2023-06-29] MEDS: METOCLOPRAMIDE 5 MG/ML 2 ML VIAL IVP SCH ×2 (13:36→18:45)
[2023-06-29] MEDS: DEXTROSE 5%-0.45% NACL 1,000 ML IV SCH ×2 (13:37→20:54)
--- NOTE | 2023-06-29 13:51 | P.PN ---
Subjective Progress Note Date: 06/29/23 CHIEF COMPLAINT: cecal mass HISTORY OF PRESENT ILLNESS: Patient postop day #7 status post right colectomy. Patient rates her abdominal pain about a 5 out of 10. She started having vomiting yesterday. She's no longer having bowel movements or flatus. Abdominal x-ray from yesterday had shown evidence of ileus. She's been made nothing by mouth. She is also complaining of chest pain evaluated by cardiology and acute coronary syndrome ruled out. Low-grade temp of 100.4 , mildly tachycardic. WBC is up at 11.77 Hgb 9.8 PHYSICAL EXAM: VITAL SIGNS: Reviewed. GENERAL: Well-developed in no acute distress. ABDOMEN: Soft. Nondistended. Minimal tenderness around incision site. Prevana wound vac intact ASSESSMENT: 1. Large right colon mass status post right colectomy 2. Colon Adenocarcinoma with lymph node involvement 3. Postoperative ileus can be an expected finding after surgery PLAN: -Keep patient nothing by mouth -Change Reglan to scheduled -Start IV fluids -Continue pain management -Encouraged patient to ambulate and increase activity level -Encouraged patient to use incentive spirometer -DVT prophylaxis subcu heparin and GI prophylaxis Pepcid Physician Svp Programmatic Tv note has been reviewed by physician. Signing provider agrees with the documented findings, assessment, and plan of care. Objective - Vital Signs Vital signs: Vital Signs Temp 100.4 F H 06/29/23 11:29 Pulse 102 H 06/29/23 11:29 Resp 18 06/29/23 11:29 BP 132/81 06/29/23 11:29 Pulse Ox 96 06/29/23 11:29 FiO2 Intake & Output 06/28/23 06/29/23 06/29/23 18:59 06:59 18:59 Other: Voiding Method Toilet Toilet - Labs CBC & Chem 7: 06/29/23 06:22 06/29/23 06:22 Labs: Abnormal Lab Results - Last 24 Hours (Table) 06/28/23 06/28/23 06/28/23 Range/Units 12:26 16:50 19:54 WBC (4.50-10.00) X 10*3/uL Hgb (12.0-15.0) d/dL Hct (37.2-46.3) % MCV (80.0-97.0) FL MCH (27.0-32.0) pg MCHC (32.0-37.0) d/dL RDW (11.5-14.5) % Neutrophils # (1.80-7.70) X 10*3/uL Eosinophils # (0.04-0.35) X 10*3/uL BUN (9.0-27.0) mg/dL Creatinine (0.6-1.5) mg/dL BUN/Creatinine Ratio (12.00-20.00) Ratio Glucose (70-110) mg/dL POC Glucose (mg/dL) 117 H 120 H 145 H (70-110) mg/dL 06/29/23 06/29/23 06/29/23 Range/Units 06:22 06:22 06:58 WBC 11.77 H (4.50-10.00) X 10*3/uL Hgb 9.8 L (12.0-15.0) d/dL Hct 33.2 L (37.2-46.3) % MCV 79.6 L (80.0-97.0) FL MCH 23.5 L (27.0-32.0) pg MCHC 29.5 L (32.0-37.0) d/dL RDW 21.8 H (11.5-14.5) % Neutrophils # 9.57 H (1.80-7.70) X 10*3/uL Eosinophils # 0.02 L (0.04-0.35) X 10*3/uL BUN 5.8 L (9.0-27.0) mg/dL Creatinine 0.5 L (0.6-1.5) mg/dL BUN/Creatinine Ratio 11.60 L (12.00-20.00) Ratio Glucose 122 H (70-110) mg/dL POC Glucose (mg/dL) 130 H (70-110) mg/dL 06/29/23 Range/Units 11:32 WBC (4.50-10.00) X 10*3/uL Hgb (12.0-15.0) d/dL Hct (37.2-46.3) % MCV (80.0-97.0) FL MCH (27.0-32.0) pg MCHC (32.0-37.0) d/dL RDW (11.5-14.5) % Neutrophils # (1.80-7.70) X 10*3/uL Eosinophils # (0.04-0.35) X 10*3/uL BUN (9.0-27.0) mg/dL Creatinine (0.6-1.5) mg/dL BUN/Creatinine Ratio (12.00-20.00) Ratio Glucose (70-110) mg/dL POC Glucose (mg/dL) 149 H (70-110) mg/dL
--- NOTE | 2023-06-29 13:51 | P.PN ---
Subjective Progress Note Date: 06/29/23 Principal diagnosis: colon mass At today's visit patient is resting comfortably in bedside chair, family at bedside. Patient reports yesterday she was having episodes of nausea and vomiting bile-like emesis as well as chest pain. Cardiology consulted. Patient denies vomiting today but reports intermittent nausea with improvement with Zofran. Patient has not had a BM since surgery and is passing minimal flatus Objective - Vital Signs Vital signs: Vital Signs Temp 100.4 F H 06/29/23 11:29 Pulse 102 H 06/29/23 11:29 Resp 18 06/29/23 11:29 BP 132/81 06/29/23 11:29 Pulse Ox 96 06/29/23 11:29 FiO2 Intake & Output 06/28/23 06/29/23 06/29/23 18:59 06:59 18:59 Other: Voiding Method Toilet Toilet - Constitutional General appearance: Present: average body habitus, no acute distress - EENT Eyes: Present: anicteric sclerae, EOMI ENT: Present: hearing grossly normal - Respiratory Details: breathing is even and unlabored - Cardiovascular Details: skin warm and dry - Integumentary Integumentary: Absent: cyanotic, jaundiced - Musculoskeletal Musculoskeletal: Present: strength equal bilaterally - Psychiatric Psychiatric: Present: A&O x's 3, appropriate affect, intact judgment & insight - Labs CBC & Chem 7: 06/29/23 06:22 06/29/23 06:22 Labs: Abnormal Lab Results - Last 24 Hours (Table) 06/28/23 06/28/23 06/29/23 Range/Units 16:50 19:54 06:22 WBC 11.77 H (4.50-10.00) X 10*3/uL Hgb 9.8 L (12.0-15.0) d/dL Hct 33.2 L (37.2-46.3) % MCV 79.6 L (80.0-97.0) FL MCH 23.5 L (27.0-32.0) pg MCHC 29.5 L (32.0-37.0) d/dL RDW 21.8 H (11.5-14.5) % Neutrophils # 9.57 H (1.80-7.70) X 10*3/uL Eosinophils # 0.02 L (0.04-0.35) X 10*3/uL BUN (9.0-27.0) mg/dL Creatinine (0.6-1.5) mg/dL BUN/Creatinine Ratio (12.00-20.00) Ratio Glucose (70-110) mg/dL POC Glucose (mg/dL) 120 H 145 H (70-110) mg/dL 06/29/23 06/29/23 06/29/23 Range/Units 06:22 06:58 11:32 WBC (4.50-10.00) X 10*3/uL Hgb (12.0-15.0) d/dL Hct (37.2-46.3) % MCV (80.0-97.0) FL MCH (27.0-32.0) pg MCHC (32.0-37.0) d/dL RDW (11.5-14.5) % Neutrophils # (1.80-7.70) X 10*3/uL Eosinophils # (0.04-0.35) X 10*3/uL BUN 5.8 L (9.0-27.0) mg/dL Creatinine 0.5 L (0.6-1.5) mg/dL BUN/Creatinine Ratio 11.60 L (12.00-20.00) Ratio Glucose 122 H (70-110) mg/dL POC Glucose (mg/dL) 130 H 149 H (70-110) mg/dL - Imaging and Cardiology Chest x-ray: report reviewed Abdominal x-ray: report reviewed Assessment and Plan (1) Colon cancer Current Visit: Yes Status: Acute Priority: High Code(s): C18.9 - MALIGNANT NEOPLASM OF COLON, UNSPECIFIED SNOMED Code(s): 399904418 (2) Colonic mass Current Visit: Yes Status: Acute Priority: High Code(s): K63.89 - OTHER SPECIFIED DISEASES OF INTESTINE SNOMED Code(s): 780296016 (3) Partial small bowel obstruction Current Visit: Yes Status: Acute Priority: High Code(s): K56.600 - PARTIAL INTESTINAL OBSTRUCTION, UNSPECIFIED TO CAUSE SNOMED Code(s): 961988316 Plan: Colon cancer: -The patient is being seen for a recent diagnosis of carcinoma of the cecum, presenting with small bowel obstruction. Initial CAT scan did not show evidence of metastatic disease. The patient is status post resection with pathology as described in the HPI. - The pathology and implications were discussed in detail with the patient and family. We discussed that at this time she doesn't appear to have any evident residual disease. Based on that, and the initial CAT scan findings, she would be considered curable. However she would be at high risk of recurrence with surgery alone, given the degree of lymph node involvement. Therefore adjuvant chemotherapy would be recommended to maximize her chances of long-term remissi on. - Given the extent of lymph node involvement, and the patient's good performance status at baseline, she would be recommended FOLFOX in the adjuvant setting. - She was advised of the chemo would start only after she is adequately healed up from the surgery, which would typically be a period of at least 4-6 weeks. She will be seen in the office at that time. We will schedule a PET scan prior to her office visit to check for any metastatic disease developing in the interim. NGS and PD-L1 will also be obtained on pathology Nausea/vomiting: -Increased n/v yesterday. Improvement with zofran. -NPO -Abd xray revealed post surgical changes with gaseous dilation of loops of bowel throughout abdomen, correlate for ileus -Surgery following Plan: Defer to the admitting service and the surgical service for ongoing postop care.
[2023-06-29 17:27] LABS: Glucose,Whole Blood 160 mg/dL (70-110)
[2023-06-29] MEDS: HYDROcodone/APAP 5-325MG 1 EACH TAB PO PRN (18:44)
--- NOTE | 2023-06-29 18:46 | P.PN ---
Progress Note - Text Progress Note Date: 06/29/23 This a 77-year-old female who is transferred from outside hospital. Patient points of abdominal pain nausea. The outside facility perform a CAT scan which showed possible partial small bowel charge. 06/13. Patient seen and examined. Lab work showed WBC 7.62, hemoglobin 9.2, platelet count 232. States pain is improved. Denies any nausea 06/14. Patient seen and examined.CT abdominal and pelvis done showed irregular periods the terminal ileum with possible underlying mass. Findings resulting in partial small bowel obstruction. Surgery planning colonoscopy later in the week June 15: I assumed care of the patient today. Patient's had no bowel movement for last 1 week. Very small amount of flatus. Has had intermittent upper abdominal pain. Not related to food. Decreased appetite. I did order a small bowel follow-through. Found to have small bowel mildly diffusely prominent. No filling defect reported.-Delayed transit time. We'll get a GI consultation also. Patient been placed in a full liquid diet per surgery. There is no white count, no fever. DC antibiotics. June 16: Patient seen earlier by Dr. Reinoso. He didn't fast diet. Patient still has some tenderness on deep palpation. I'm concerned about the computed tomography scan findings and given her clinical history. Consult GI. GI is planning to proceed with a colonoscopy tomorrow. June 17: Patient seen by me before procedure this morning. During the procedure patient underwent aspiration. Procedure to be abandoned. Discussed with Dr. Shiv Richter. Depending on how the patient is doing well in the facet endoscopy next 24-48 hours. June 18: I visited the patient last night. Doing well.. No trouble breathing. This morning sitting up in a chair. Breathing is stable. No nausea vomiting. Discussed with GI. Patient stable to proceed for endoscopy tomorrow. Medically cleared. No respiratory symptoms. June 19: This morning patient underwent colonoscopy by Dr. Shiv Richter. Discovered to have a circumferential ulcerated mass in the proximal cecum. Dr. Shiv Richter then called Dr. Dr. Reinoso, we will proceed with surgery on Thursday. Meantime patient is to remain on clear liquids. I discussed this with the patient several family members present at the bedside. Questions answered. June 20: Patient on clear liquid. Up to the bathroom. Pending surgery on Thursday. No nausea vomiting. Discussed with patient. June 21: On clear liquids. Nothing by mouth after midnight. Had some abdominal pain earlier. Pending surgery tomorrow. Otherwise comfortable. Ambulating. June 22: Large right colonic mass removed with right colectomy earlier today by Dr. Reinoso. Midline incision with dressing. Some abdominal pain. Patient has an epidural for pain. Clear liquid diet June 23: Remains an epidural for pain. No bowel movement or flatus. Clear liquids. June 24: Up in a recliner. Remains an epidural for pain. No nausea vomiting. No bowel movement or flatus. Patient for liquid diet per surgery. Connolly catheter in place. June 29: I resumed care of the patient today. Up in a chair. Patient did vomit last night and this morning. Has had very little flatus since surgery. No abdominal distention. Patient nothing by mouth today. X-ray showing ileus. Placed back on IV fluids. 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 Active Medications Acetaminophen (Acetaminophen Tab 500 Mg Tab) 500 mg PO Q6HR PRN PRN Reason: Fever and/ or Pain Last Admin: 06/29/23 11:46 Dose: 500 mg Hydrocodone Bitart/Acetaminophen (Hydrocodone/Apap 5-325mg 1 Each Tab) 1 each PO Q4HR PRN PRN Reason: Pain Scale 1-6 Last Admin: 06/28/23 08:37 Dose: 1 each Amlodipine Besylate (Amlodipine 5 Mg Tab) 5 mg PO DAILY [facility] Last Admin: 06/29/23 08:29 Dose: 5 mg Atorvastatin Calcium (Atorvastatin 20 Mg Tab) 20 mg PO HS [facility] Last Admin: 06/28/23 20:29 Dose: 20 mg Cyanocobalamin (Cyanocobalamin 500 Mcg Tab) 1,000 mcg PO DAILY [facility] Last Admin: 06/29/23 08:29 Dose: 1,000 mcg Diphenhydramine HCl (Diphenhydramine 50 Mg/Ml 1 Ml Vial) 12.5 mg IVP Q6HR PRN PRN Reason: Itching Last Admin: 06/23/23 17:17 Dose: 12.5 mg Famotidine (Famotidine 20 Mg Tab) 20 mg PO BID [facility] Last Admin: 06/29/23 08:29 Dose: 20 mg Heparin Sodium (Porcine) (Heparin Sodium,Porcine 5,000 Unit/Ml 1 Ml Vial) 5,000 unit SQ Q8HR [facility] Last Admin: 06/29/23 17:43 Dose: 5,000 unit Hydromorphone HCl (Hydromorphone 1 Mg/Ml 1 Ml Syringe) 1 mg IVP Q3H PRN PRN Reason: Severe Pain (Scale 7 to 10) Last Admin: 06/29/23 06:07 Dose: 1 mg Ropivacaine 250 mg/ Fentanyl Citrate 625 mcg/ Sodium Chloride 250 mls @ 0 mls/hr EPIDURAL .Q0M PRN; Protocol PRN Reason: Analgesia Last Admin: 06/23/23 14:26 Dose: 9 mls/hr Dextrose/Sodium Chloride (Dextrose 5%-1/2ns Iv Soln) 1,000 mls @ 125 mls/hr IV .Q8H [facility] Last Admin: 06/29/23 13:37 Dose: 125 mls/hr Insulin Aspart (Insulin Aspart (Novolog) 100 Unit/Ml Vial) 0 unit SQ ACHS [facility]; Protocol Last Admin: 06/29/23 17:29 Dose: Not Given Metoclopramide HCl (Metoclopramide 5 Mg/Ml 2 Ml Vial) 10 mg IVP Q6HR [facility] Last Admin: 06/29/23 13:36 Dose: 10 mg Naloxone HCl (Naloxone 0.4 Mg/Ml 1 Ml Vial) 0.2 mg IV Q2M PRN PRN Reason: Opioid Reversal Ondansetron HCl (Ondansetron 4 Mg/2 Ml Vial) 4 mg IVP Q4HR PRN PRN Reason: Nausea And Vomiting Pantoprazole Sodium (Pantoprazole 40 Mg/10 Ml Vial) 40 mg IVP BID [facility] Last Admin: 06/29/23 08:29 Dose: 40 mg On examination: VITAL SIGNS: 100.4, 1 or 2, 18, 132/81, 96% room air GENERAL APPEARANCE: , Up in recliner HEENT: Normal external appearance of nose and ear. Oral cavity normal EYES: Pupils equal. Conjunctiva normal. NECK: JVD not raised. Mass not palpable. RESPIRATORY: Respiratory effort normal. Lungs clear to auscultation. CARDIOVASCULAR: First and second sounds normal. No edema. ABDOMEN: Soft. Abdominal binder. Connolly catheter PSYCHIATRY: Alert and oriented x3. Mood and affect normal. INVESTIGATIONS, reviewed in the clinical context: Abdominal x-ray [June 28]: Postsurgical changes with gases dilatation and loops of small throughout the abdomen. June 29: White count 11.7 hemoglobin 9.8 platelets 26 potassium 4.4 BUN 5.8 June 24: White count 8.0 hemoglobin 9.6 platelets 201 potassium 4 creatinine 0.49 June 21: White count 4.7 hemoglobin 9.2. 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 No filling defect reported.-Delayed transit time. CT abdomen pelvis: Irregular appearance of the terminal ileum with possible underlying mass. Appreciated on the prior exam. Some ingestion miss entry enlarged lymph node. Gallstones. Assessment and plan: - Abdominal pain. Right colectomy for a right colon mass. 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 -Post operative ileus. Patient had vomiting yesterday. Very small flatus. Made nothing by mouth today. -Aspiration during colonoscopy. no fever. Good pulse ox: Complete recovery -Diabetes mellitus type 2, on oral hypoglycemic Follow Accu-Cheks and sliding scale. Hold Glucophage. -Normocytic anemia, likely from underlying malignancy -Essential hypertension Zestoretic. -Hypokalemia, replace -Hyperlipidemia Lipitor Discussed with patient daughter the bedside. Nothing by mouth. Continue oral medications. IV fluids. Follow with surgery. Surgery to decide if NG tube required. Will need so if symptoms progress. Or there is no improvement.
[2023-06-29 20:21] LABS: Glucose,Whole Blood 184 mg/dL (70-110)
[2023-06-29] MEDS: ATORVASTATIN 20 MG TAB PO SCH (20:54)
[2023-06-30] MEDS: METOCLOPRAMIDE 5 MG/ML 2 ML VIAL IVP SCH ×5 (00:33→23:50)
[2023-06-30] MEDS: HEPARIN SODIUM,PORCINE 5,000 UNIT/ML 1 ML VIAL SQ SCH ×4 (00:33→23:50)
[2023-06-30] MEDS: ACETAMINOPHEN TAB 500 MG TAB PO PRN ×3 (00:37→22:13)
[2023-06-30] MEDS: DEXTROSE 5%-0.45% NACL 1,000 ML IV SCH ×3 (05:56→20:39)
[2023-06-30 07:20] LABS: Glucose,Whole Blood 133 mg/dL (70-110)
[2023-06-30] MEDS: INSULIN ASPART (NovoLOG) 100 UNIT/ML VIAL SQ SCH ×4 (07:28→20:40)
[2023-06-30] MEDS: amLODIPine 5 MG TAB PO SCH (08:25)
[2023-06-30] MEDS: CYANOCOBALAMIN 500 MCG TAB PO SCH (08:25)
[2023-06-30] MEDS: FAMOTIDINE 20 MG TAB PO SCH ×2 (08:25→20:39)
[2023-06-30] MEDS: PANTOPRAZOLE 40 MG/10 ML VIAL IVP SCH ×2 (08:25→20:39)
[2023-06-30 11:06] LABS: HCT 31.7 % (37.2-46.3); HGB 9.6 d/dL (12.0-15.0); MCH 23.9 pg (27.0-32.0); MCHC 30.3 d/dL (32.0-37.0); MCV 78.9 FL (80.0-97.0); Mean Platelet Volume 10.8 FL (9.5-12.2); NRBC Per 100 WBC 0 X 10*3/uL (0.00-0.01); Platelet Count 280 X 10*3/uL (140-440); RBC 4.02 X 10*6/uL (4.10-5.20); RDW 21.7 % (11.5-14.5); WBC 18.37 X 10*3/uL (4.50-10.00)
[2023-06-30] MEDS ORDERED: IOPAMIDOL CONTRAST (ORAL USE) VIAL PO PRN (11:30)
[2023-06-30 11:47] LABS: Basophils # (A) 0.05 X 10*3/uL (0.00-0.10); Basophils % (A) 0.3 %; Eosinophils # (A) 0.02 X 10*3/uL (0.04-0.35); Eosinophils % (A) 0.1 %; Lymphocytes # (A) 1.45 X 10*3/uL (0.90-5.00); Lymphocytes % (A) 7.9 %; Monocytes # (A) 1.56 X 10*3/uL (0.20-1.00); Monocytes % (A) 8.5 %; Neutrophils # (A) 15.19 X 10*3/uL (1.80-7.70); Neutrophils % (A) 82.7 %
[2023-06-30 11:59] LABS: Glucose,Whole Blood 149 mg/dL (70-110)
--- NOTE | 2023-06-30 13:15 | P.PN ---
Subjective Progress Note Date: 06/30/23 Principal diagnosis: colon mass At today's visit patient is resting comfortably in bedside chair, family at bedside. Patient reports feeling significantly improved today. Denies n/v/d. Chest pain resolved. Pt reports eating jello this morning, tolerated well. Reports she is passing flatus, but has not had a BM since surgery. Objective - Vital Signs Vital signs: Vital Signs Temp 97.8 F 06/30/23 11:51 Pulse 87 06/30/23 11:51 Resp 18 06/30/23 11:51 BP 118/70 06/30/23 11:51 Pulse Ox 95 06/30/23 11:51 FiO2 Intake & Output 06/29/23 06/30/23 06/30/23 18:59 06:59 18:59 Other: Voiding Method Toilet Toilet - Constitutional General appearance: Present: average body habitus, no acute distress - EENT Eyes: Present: anicteric sclerae, EOMI ENT: Present: hearing grossly normal - Respiratory Details: breathing is even and unlabored - Cardiovascular Details: skin warm and dry - Integumentary Integumentary: Absent: cyanotic - Neurologic Neurologic Comment(s): grossly intact - Musculoskeletal Musculoskeletal: Present: strength equal bilaterally - Psychiatric Psychiatric: Present: A&O x's 3, appropriate affect, intact judgment & insight - Labs CBC & Chem 7: 06/30/23 06:09 06/29/23 06:22 Labs: Abnormal Lab Results - Last 24 Hours (Table) 06/29/23 06/29/23 06/30/23 Range/Units 17:24 20:19 06:09 WBC 18.37 H (4.50-10.00) X 10*3/uL RBC 4.02 L (4.10-5.20) X 10*6/uL Hgb 9.6 L (12.0-15.0) d/dL Hct 31.7 L (37.2-46.3) % MCV 78.9 L (80.0-97.0) FL MCH 23.9 L (27.0-32.0) pg MCHC 30.3 L (32.0-37.0) d/dL RDW 21.7 H (11.5-14.5) % Neutrophils # 15.19 H (1.80-7.70) X 10*3/uL Monocytes # 1.56 H (0.20-1.00) X 10*3/uL Eosinophils # 0.02 L (0.04-0.35) X 10*3/uL POC Glucose (mg/dL) 160 H 184 H (70-110) mg/dL 06/30/23 06/30/23 Range/Units 07:19 11:58 WBC (4.50-10.00) X 10*3/uL RBC (4.10-5.20) X 10*6/uL Hgb (12.0-15.0) d/dL Hct (37.2-46.3) % MCV (80.0-97.0) FL MCH (27.0-32.0) pg MCHC (32.0-37.0) d/dL RDW (11.5-14.5) % Neutrophils # (1.80-7.70) X 10*3/uL Monocytes # (0.20-1.00) X 10*3/uL Eosinophils # (0.04-0.35) X 10*3/uL POC Glucose (mg/dL) 133 H 149 H (70-110) mg/dL Assessment and Plan (1) Colon cancer Current Visit: Yes Status: Acute Priority: High Code(s): C18.9 - MALIGNANT NEOPLASM OF COLON, UNSPECIFIED SNOMED Code(s): 546485530 (2) Colonic mass Current Visit: Yes Status: Acute Priority: High Code(s): K63.89 - OTHER SPECIFIED DISEASES OF INTESTINE SNOMED Code(s): 045327733 (3) Partial small bowel obstruction Current Visit: Yes Status: Acute Priority: High Code(s): K56.600 - PARTIAL INTESTINAL OBSTRUCTION, UNSPECIFIED TO CAUSE SNOMED Code(s): 899910060 Plan: Colon cancer: -The patient is being seen for a recent diagnosis of carcinoma of the cecum, presenting with small bowel obstruction. Initial CAT scan did not show evidence of metastatic disease. The patient is status post resection with pathology as described in the HPI. - The pathology and implications were discussed in detail with the patient and family. We discussed that at this time she doesn't appear to have any evident residual disease. Based on that, and the initial CAT scan findings, she would be considered curable. However she would be at high risk of recurrence with surgery alone, given the degree of lymph node involvement. Therefore adjuvant chemotherapy would be recommended to maximize her chances of long-term remission. - Given the extent of lymph node involvement, and the patient's good performance status at baseline, she would be recommended FOLFOX in the adjuvant setting. - She was advised of the chemo would start only after she is adequately healed up from the surgery, which would typically be a period of at least 4-6 weeks. She will be seen in the office at that time. We will schedule a PET scan prior to her office visit to check for any metastatic disease developing in the interim. NGS and PD-L1 will also be obtained on pathology Pt and family have been updated in detail regarding results and plan of care Nausea/vomiting: -Increased n/v yesterday. Reports significant improvement in sx today. -Abd xray revealed post surgical changes with gaseous dilation of loops of bowel throughout abdomen, possible ileus -Tolerated jello this morning without sx. Diet advanced to full liquid -Surgery following Plan: Defer to the admitting service and the surgical service for ongoing postop care. Dr. palmerests: I seen and examined patient, performed H&P, developed impression and plan of care. Discussed with dictator. Agree with documentation, dictated as a scribe.
--- NOTE | 2023-06-30 13:27 | P.PN ---
Subjective Progress Note Date: 06/30/23 CHIEF COMPLAINT: cecal mass HISTORY OF PRESENT ILLNESS: Patient postop day #8 status post right colectomy. patient reports her pain is controlled. She is having flatus. Denies any nausea or vomiting. She has had low-grade temps history the night. she denies any nausea or vomiting. Denies cough. White count has increased to 18 PHYSICAL EXAM: VITAL SIGNS: Reviewed. GENERAL: Well-developed in no acute distress. ABDOMEN: Soft. Nondistended. Prevana removed. Incision clean, dry and intact ASSESSMENT: 1. Large right colon mass status post right colectomy 2. Colon Adenocarcinoma with lymph node involvement 3. Postoperative ileus can be an expected finding after surgery PLAN: -CT Abdomen without contrast ordered to evaluate increase in WBC. No contrast used because of shellfish allergy and patient refused oral contrast -Repeat CBC in AM -Advance diet to Full liquids -continue Reglan scheduled -Continue pain management -Encouraged patient to ambulate and increase activity level -Encouraged patient to use incentive spirometer -DVT prophylaxis subcu heparin and GI prophylaxis Pepcid Physician Olive Knocker note has been reviewed by physician. Signing provider agrees with the documented findings, assessment, and plan of care. Objective - Vital Signs Vital signs: Vital Signs Temp 99.1 F 06/30/23 07:10 Pulse 96 06/30/23 07:10 Resp 18 06/30/23 07:10 BP 118/73 06/30/23 07:10 Pulse Ox 91 L 06/30/23 07:10 FiO2 Intake & Output 06/29/23 06/30/23 06/30/23 18:59 06:59 18:59 Other: Voiding Method Toilet Toilet - Labs CBC & Chem 7: 06/30/23 06:09 06/29/23 06:22 Labs: Abnormal Lab Results - Last 24 Hours (Table) 06/29/23 06/29/23 06/29/23 Range/Units 11:32 17:24 20:19 WBC (4.50-10.00) X 10*3/uL RBC (4.10-5.20) X 10*6/uL Hgb (12.0-15.0) d/dL Hct (37.2-46.3) % MCV (80.0-97.0) FL MCH (27.0-32.0) pg MCHC (32.0-37.0) d/dL RDW (11.5-14.5) % POC Glucose (mg/dL) 149 H 160 H 184 H (70-110) mg/dL 06/30/23 06/30/23 Range/Units 06:09 07:19 WBC 18.37 H (4.50-10.00) X 10*3/uL RBC 4.02 L (4.10-5.20) X 10*6/uL Hgb 9.6 L (12.0-15.0) d/dL Hct 31.7 L (37.2-46.3) % MCV 78.9 L (80.0-97.0) FL MCH 23.9 L (27.0-32.0) pg MCHC 30.3 L (32.0-37.0) d/dL RDW 21.7 H (11.5-14.5) % POC Glucose (mg/dL) 133 H (70-110) mg/dL
--- NOTE | 2023-06-30 14:42 | CT ---
EXAMINATION TYPE: CT abdomen pelvis wo con CT DLP: 639.6 mGycm, Automated exposure control for dose reduction was used. DATE OF EXAM: 06/30/2023 1:18 PM COMPARISON: CT abdomen pelvis most recent from and 05/24/2023. CLINICAL INDICATION:Female, 77 years old with history of Abdominal pain, fever, elevated WBC; abdomin al pain, fever, WBC TECHNIQUE: Axial CT of the abdomen and pelvis. Sagittal and coronal reformats were created on a [employer] workstation. Contrast used: mL of , (none if empty) Oral contrast used: without Oral Contrast (none if empty) FINDINGS: LOWER CHEST: Similar right lower lung pulmonary nodule near the diaphragm measuring 6 mm. There is moderate coronary artery atherosclerosis. Smaller hernia. Trace bilateral pleural effusions. ABDOMEN LIVER: Unremarkable GALLBLADDER AND BILE DUCTS: Gallstone in the gallbladder neck with fat stranding changes around the g allbladder which are new. PANCREAS: Unremarkable. SPLEEN: Unremarkable. ADRENAL GLANDS: Unremarkable. KIDNEYS AND URETERS: No evidence of hydronephrosis or renal calculus. The ureters are unremarkable. PELVIS BLADDER: Incompletely distended but grossly unremarkable. REPRODUCTIVE: Unremarkable. ABDOMEN & PELVIS STOMACH AND BOWEL: Postsurgical changes of the terminal ileum and ileocecal valve with large amount s tool within the cecum and ascending colon. There is no evidence for dehiscence or organizing fluid co llection. PERITONEUM/RETROPERITONEUM: No evidence of pneumoperitoneum. There is free fluid in the abdomen. VASCULATURE: No evidence of aortic aneurysm. MUSCULOSKELETAL: No acute osseous abnormalities LYMPH NODES: Right lower quadrant enlarged mesenteric lymph nodes in the terminal ileum measuring up to 10 mm in short axis. SOFT TISSUE/ABDOMINAL WALL: Surgical changes anterior abdominal wall. IMPRESSION: 1. Findings compatible with acute cholecystitis with gallstone in the gallbladder neck and adjacent inflammation changes around the gallbladder with wall thickening and pericholecystic fluid. Surgical consultation recommended. 2. Postsurgical changes to the terminal ileum with some fat stranding changes at the anastomotic sit e. No evidence for perforation. No evidence for abscess. There is some free fluid in the pelvis could be reactive. 3. Similar pulmonary nodules short-term follow-up in 6 months recommended. 4. Small hiatal hernia. 5. Moderate coronary artery atherosclerosis. 6. Trace bilateral pleural effusions.
[2023-06-30 16:58] LABS: Glucose,Whole Blood 115 mg/dL (70-110)
[2023-06-30] MEDS: PIPERACILLIN-TAZOBACTAM 3.375 GM in SODIUM CHLORIDE 0.9% 100 ML IVPB SCH ×2 (17:07→23:50)
--- NOTE | 2023-06-30 19:52 | P.PN ---
Progress Note - Text Progress Note Date: 06/30/23 This a 77-year-old female who is transferred from outside hospital. Patient points of abdominal pain nausea. The outside facility perform a CAT scan which showed possible partial small bowel charge. 06/13. Patient seen and examined. Lab work showed WBC 7.62, hemoglobin 9.2, platelet count 232. States pain is improved. Denies any nausea 06/14. Patient seen and examined.CT abdominal and pelvis done showed irregular periods the terminal ileum with possible underlying mass. Findings resulting in partial small bowel obstruction. Surgery planning colonoscopy later in the week June 15: I assumed care of the patient today. Patient's had no bowel movement for last 1 week. Very small amount of flatus. Has had intermittent upper abdominal pain. Not related to food. Decreased appetite. I did order a small bowel follow-through. Found to have small bowel mildly diffusely prominent. No filling defect reported.-Delayed transit time. We'll get a GI consultation also. Patient been placed in a full liquid diet per surgery. There is no white count, no fever. DC antibiotics. June 16: Patient seen earlier by Dr. Reinoso. He didn't fast diet. Patient still has some tenderness on deep palpation. I'm concerned about the computed tomography scan findings and given her clinical history. Consult GI. GI is planning to proceed with a colonoscopy tomorrow. June 17: Patient seen by me before procedure this morning. During the procedure patient underwent aspiration. Procedure to be abandoned. Discussed with Dr. Shiv Richter. Depending on how the patient is doing well in the facet endoscopy next 24-48 hours. June 18: I visited the patient last night. Doing well.. No trouble breathing. This morning sitting up in a chair. Breathing is stable. No nausea vomiting. Discussed with GI. Patient stable to proceed for endoscopy tomorrow. Medically cleared. No respiratory symptoms. June 19: This morning patient underwent colonoscopy by Dr. Shiv Richter. Discovered to have a circumferential ulcerated mass in the proximal cecum. Dr. Shiv Richter then called Dr. Dr. Reinoso, we will proceed with surgery on Thursday. Meantime patient is to remain on clear liquids. I discussed this with the patient several family members present at the bedside. Questions answered. June 20: Patient on clear liquid. Up to the bathroom. Pending surgery on Thursday. No nausea vomiting. Discussed with patient. June 21: On clear liquids. Nothing by mouth after midnight. Had some abdominal pain earlier. Pending surgery tomorrow. Otherwise comfortable. Ambulating. June 22: Large right colonic mass removed with right colectomy earlier today by Dr. Reinoso. Midline incision with dressing. Some abdominal pain. Patient has an epidural for pain. Clear liquid diet June 23: Remains an epidural for pain. No bowel movement or flatus. Clear liquids. June 24: Up in a recliner. Remains an epidural for pain. No nausea vomiting. No bowel movement or flatus. Patient for liquid diet per surgery. Connolly catheter in place. June 29: I resumed care of the patient today. Up in a chair. Patient did vomit last night and this morning. Has had very little flatus since surgery. No abdominal distention. Patient nothing by mouth today. X-ray showing ileus. Placed back on IV fluids. 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 June 30: Up in a chair. Did walk up with the nurse's desk. Some abdominal pain. No nausea vomiting. Some status this morning. Several family members at the bedside. Discussed. White count elevated. Discussed with Ed and POSTAL CLERK from surgery about starting antibiotics. Computed tomography scan abdomen done later showed large amount of stool in the cecum and ascending colon. No pneumoperitoneum. Gallstones in the gallbladder neck with fat stranding changes around the gallbladder which is new. Started on IV Zosyn. Active Medications Acetaminophen (Acetaminophen Tab 500 Mg Tab) 500 mg PO Q6HR PRN PRN Reason: Fever and/ or Pain Last Admin: 06/30/23 08:25 Dose: 500 mg Hydrocodone Bitart/Acetaminophen (Hydrocodone/Apap 5-325mg 1 Each Tab) 1 each PO Q4HR PRN PRN Reason: Pain Scale 1-6 Last Admin: 06/29/23 18:44 Dose: 1 each Amlodipine Besylate (Amlodipine 5 Mg Tab) 5 mg PO DAILY [facility] Last Admin: 06/30/23 08:25 Dose: 5 mg Atorvastatin Calcium (Atorvastatin 20 Mg Tab) 20 mg PO HS [facility] Last Admin: 06/29/23 20:54 Dose: 20 mg Cyanocobalamin (Cyanocobalamin 500 Mcg Tab) 1,000 mcg PO DAILY [facility] Last Admin: 06/30/23 08:25 Dose: 1,000 mcg Diphenhydramine HCl (Diphenhydramine 50 Mg/Ml 1 Ml Vial) 12.5 mg IVP Q6HR PRN PRN Reason: Itching Last Admin: 06/23/23 17:17 Dose: 12.5 mg Famotidine (Famotidine 20 Mg Tab) 20 mg PO BID [facility] Last Admin: 06/30/23 08:25 Dose: 20 mg Heparin Sodium (Porcine) (Heparin Sodium,Porcine 5,000 Unit/Ml 1 Ml Vial) 5,000 unit SQ Q8HR [facility] Last Admin: 06/30/23 17:07 Dose: 5,000 unit Hydromorphone HCl (Hydromorphone 1 Mg/Ml 1 Ml Syringe) 1 mg IVP Q3H PRN PRN Reason: Severe Pain (Scale 7 to 10) Last Admin: 06/29/23 06:07 Dose: 1 mg Ropivacaine 250 mg/ Fentanyl Citrate 625 mcg/ Sodium Chloride 250 mls @ 0 mls/hr EPIDURAL .Q0M PRN; Protocol PRN Reason: Analgesia Last Admin: 06/23/23 14:26 Dose: 9 mls/hr Dextrose/Sodium Chloride (Dextrose 5%-1/2ns Iv Soln) 1,000 mls @ 125 mls/hr IV .Q8H [facility] Last Admin: 06/30/23 13:40 Dose: Not Given Piperacillin Sod/Tazobactam (Sod 3.375 gm/ Sodium Chloride) 100 mls @ 25 mls/hr IVPB Q8HR [facility]; Protocol Last Admin: 06/30/23 17:07 Dose: 25 mls/hr Insulin Aspart (Insulin Aspart (Novolog) 100 Unit/Ml Vial) 0 unit SQ ACHS [facility]; Protocol Last Admin: 06/30/23 17:03 Dose: Not Given Iopamidol (Iopamidol Contrast (Oral Use) Vial) 30 ml PO Q60M PRN PRN Reason: CT Scan Stop: 07/01/23 11:31 Metoclopramide HCl (Metoclopramide 5 Mg/Ml 2 Ml Vial) 10 mg IVP Q6HR [facility] Last Admin: 06/30/23 17:08 Dose: 10 mg Naloxone HCl (Naloxone 0.4 Mg/Ml 1 Ml Vial) 0.2 mg IV Q2M PRN PRN Reason: Opioid Reversal Ondansetron HCl (Ondansetron 4 Mg/2 Ml Vial) 4 mg IVP Q4HR PRN PRN Reason: Nausea And Vomiting Pantoprazole Sodium (Pantoprazole 40 Mg/10 Ml Vial) 40 mg IVP BID [facility] Last Admin: 06/30/23 08:25 Dose: 40 mg On examination: VITAL SIGNS: 97.8, 87, 18, 118/70, 95% room air GENERAL APPEARANCE: , Up in recliner HEENT: Normal external appearance of nose and ear. Oral cavity normal EYES: Pupils equal. Conjunctiva normal. NECK: JVD not raised. Mass not palpable. RESPIRATORY: Respiratory effort normal. Lungs clear to auscultation. CARDIOVASCULAR: First and second sounds normal. No edema. ABDOMEN: Soft. Some abdominal tenderness. Abdominal binder. Connolly catheter PSYCHIATRY: Alert and oriented x3. Mood and affect normal. INVESTIGATIONS, reviewed in the clinical context: CT abdomen pelvis [June 30] fat stranding around the gallbladder with gallstone. June 30: White count 18.3 hemoglobin 9.6 platelets 280 Abdominal x-ray [June 28]: Postsurgical changes with gases dilatation and loops of small throughout the abdomen. June 29: White count 11.7 hemoglobin 9.8 platelets 26 potassium 4.4 BUN 5.8 June 24: White count 8.0 hemoglobin 9.6 platelets 201 potassium 4 creatinine 0.49 June 21: White count 4.7 hemoglobin 9.2. 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 No filling defect reported.-Delayed transit time. CT abdomen pelvis: Irregular appearance of the terminal ileum with possible underlying mass. Appreciated on the prior exam. Some ingestion miss entry enlarged lymph node. Gallstones. Assessment and plan: -Acute cholecystitis with choledocholithiasis.: New diagnosis IV Zosyn. Dr. Reinoso following. -Sepsis from above IV Zosyn. D5 0.45. - Abdominal pain. Right colectomy for a right colon mass. 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 -Post operative ileus. Patient had vomiting yesterday. Very small flatus. Made nothing by mouth today. -Aspiration during colonoscopy. no fever. Good pulse ox: Complete recovery -Diabetes mellitus type 2, on oral hypoglycemic Follow Accu-Cheks and sliding scale. Hold Glucophage. -Normocytic anemia, likely from underlying malignancy -Essential hypertension Zestoretic. -Hypokalemia, replace -Hyperlipidemia Lipitor Discussed with patient and family the bedside. IV Zosyn. D5 0.45.
[2023-06-30 20:39] LABS: Glucose,Whole Blood 113 mg/dL (70-110)
[2023-06-30] MEDS: ATORVASTATIN 20 MG TAB PO SCH (20:39)
[2023-07-01] MEDS: DEXTROSE 5%-0.45% NACL 1,000 ML IV SCH ×3 (05:27→21:11)
[2023-07-01] MEDS: METOCLOPRAMIDE 5 MG/ML 2 ML VIAL IVP SCH ×4 (05:41→23:41)
[2023-07-01 08:42] LABS: Glucose,Whole Blood 122 mg/dL (70-110)
--- NOTE | 2023-07-01 08:48 | NM ---
EXAMINATION TYPE: NM hepatobiliary wo EF DATE OF EXAM: 07/01/2023 COMPARISON: Correlation CT 06/30/2023 CLINICAL INDICATION: Female, 77 years old with history of RUQ pain; TECHNIQUE: After the intravenous administration of 5.2 mCi Tc 99m Mebrofenin hepatobiliary scintigrap hy is performed. Immediate images post injection. FINDINGS: There is satisfactory initial uptake of tracer by the liver. Small bowel activity is seen at 8 minute s. There is nonvisualization of the gallbladder up to 90 minutes. IMPRESSION: No gallbladder activity up to 90 minutes. Scintigraphic findings support acute cholecysti tis.
[2023-07-01 09:17] LABS: ALT 16 U/L (4-34); AST 23 U/L (14-36); African American GFR (CKD) >90 (>60 ml/min/1.73 sqM); Albumin 2.6 g/dL (3.5-5.0); Alkaline Phosphatase 145 U/L (38-126); Anion Gap 8 mmol/L; Blood Urea Nitrogen 6 mg/dL (7-17); Calcium 8.3 mg/dL (8.4-10.2); Carbon Dioxide 25 mmol/L (22-30); Chloride 100 mmol/L (98-107); Globulin 2.6 g/dL; Glucose 120 mg/dL (74-99); Non-African American GFR(CKD) >90 (>60 ml/min/1.73 sqM); Potassium 3.6 mmol/L (3.5-5.1); Sodium 133 mmol/L (137-145); Total Bilirubin 0.5 mg/dL (0.2-1.3); Total Protein 5.2 g/dL (6.3-8.2)
[2023-07-01] MEDS: INSULIN ASPART (NovoLOG) 100 UNIT/ML VIAL SQ SCH ×4 (09:25→21:16)
[2023-07-01] MEDS: HEPARIN SODIUM,PORCINE 5,000 UNIT/ML 1 ML VIAL SQ SCH ×3 (10:00→23:41)
[2023-07-01] MEDS: FAMOTIDINE 20 MG TAB PO SCH ×2 (10:00→21:11)
[2023-07-01] MEDS: CYANOCOBALAMIN 500 MCG TAB PO SCH (10:00)
[2023-07-01] MEDS: amLODIPine 5 MG TAB PO SCH (10:01)
[2023-07-01] MEDS: PIPERACILLIN-TAZOBACTAM 3.375 GM in SODIUM CHLORIDE 0.9% 100 ML IVPB SCH ×3 (10:01→23:40)
[2023-07-01] MEDS: PANTOPRAZOLE 40 MG/10 ML VIAL IVP SCH ×2 (10:01→21:11)
--- NOTE | 2023-07-01 10:49 | US ---
EXAMINATION TYPE: US gallbladder DATE OF EXAM: 07/01/2023r COMPARISON: CT and NM 2022 CLINICAL INDICATION: Female, 77 years old with history of abdominal pain; TECHNIQUE: Multiple sonographic images of the right upper quadrant are obtained. FINDINGS: EXAM MEASUREMENTS: Liver Length: 14.4 cm Gallbladder Wall: 0.5 cm CBD: 0.5 cm Right Kidney: 12.4 x 5.2 x 4.2 cm Chemical Waste Management Technician notes: Exam done portable Pancreas: visualized portions wnl, limited by overlying midline bowel gas Liver: wnl Gallbladder: hydropic, 2 non mobile stones seen measuring at least 2.5 cm in size, thickened wall Evidence for sonographic Saleh's sign: yes CBD: visualized portions wnl, limited by overlying bowel gas Right Kidney: wnl IMPRESSION: Gallbladder wall thickening with a couple nonmobile gallstones, hydropic change, and positive sonogra phic Saleh's sign. Imaging findings are supportive of acute cholecystitis.
[2023-07-01 11:06] LABS: Basophils # (A) 0.05 X 10*3/uL (0.00-0.10); Basophils % (A) 0.3 %; Eosinophils # (A) 0.03 X 10*3/uL (0.04-0.35); Eosinophils % (A) 0.2 %; HCT 28.9 % (37.2-46.3); HGB 8.6 d/dL (12.0-15.0); Lymphocytes # (A) 1.13 X 10*3/uL (0.90-5.00); MCH 23.6 pg (27.0-32.0); MCHC 29.8 d/dL (32.0-37.0); MCV 79.2 FL (80.0-97.0); Mean Platelet Volume 11.1 FL (9.5-12.2); Monocytes # (A) 1.25 X 10*3/uL (0.20-1.00); Monocytes % (A) 7.7 %; NRBC Per 100 WBC 0 X 10*3/uL (0.00-0.01); Neutrophils # (A) 13.59 X 10*3/uL (1.80-7.70); Neutrophils % (A) 84.2 %; Platelet Count 265 X 10*3/uL (140-440); RBC 3.65 X 10*6/uL (4.10-5.20); RDW 21.3 % (11.5-14.5); WBC 16.14 X 10*3/uL (4.50-10.00)
[2023-07-01 11:34] LABS: Glucose,Whole Blood 135 mg/dL (70-110)
[2023-07-01] MEDS: ACETAMINOPHEN TAB 500 MG TAB PO PRN (12:15)
--- NOTE | 2023-07-01 14:05 | P.PN ---
Progress Note - Text Progress Note Date: 07/01/23 This a 77-year-old female who is transferred from outside hospital. Patient points of abdominal pain nausea. The outside facility perform a CAT scan which showed possible partial small bowel charge. 06/13. Patient seen and examined. Lab work showed WBC 7.62, hemoglobin 9.2, platelet count 232. States pain is improved. Denies any nausea 06/14. Patient seen and examined.CT abdominal and pelvis done showed irregular periods the terminal ileum with possible underlying mass. Findings resulting in partial small bowel obstruction. Surgery planning colonoscopy later in the week June 15: I assumed care of the patient today. Patient's had no bowel movement for last 1 week. Very small amount of flatus. Has had intermittent upper abdominal pain. Not related to food. Decreased appetite. I did order a small bowel follow-through. Found to have small bowel mildly diffusely prominent. No filling defect reported.-Delayed transit time. We'll get a GI consultation also. Patient been placed in a full liquid diet per surgery. There is no white count, no fever. DC antibiotics. June 16: Patient seen earlier by Dr. Reinoso. He didn't fast diet. Patient still has some tenderness on deep palpation. I'm concerned about the computed tomography scan findings and given her clinical history. Consult GI. GI is planning to proceed with a colonoscopy tomorrow. June 17: Patient seen by me before procedure this morning. During the procedure patient underwent aspiration. Procedure to be abandoned. Discussed with Dr. Shiv Richter. Depending on how the patient is doing well in the facet endoscopy next 24-48 hours. June 18: I visited the patient last night. Doing well.. No trouble breathing. This morning sitting up in a chair. Breathing is stable. No nausea vomiting. Discussed with GI. Patient stable to proceed for endoscopy tomorrow. Medically cleared. No respiratory symptoms. June 19: This morning patient underwent colonoscopy by Dr. Shiv Richter. Discovered to have a circumferential ulcerated mass in the proximal cecum. Dr. Shiv Richter then called Dr. Dr. Reinoso, we will proceed with surgery on Thursday. Meantime patient is to remain on clear liquids. I discussed this with the patient several family members present at the bedside. Questions answered. June 20: Patient on clear liquid. Up to the bathroom. Pending surgery on Thursday. No nausea vomiting. Discussed with patient. June 21: On clear liquids. Nothing by mouth after midnight. Had some abdominal pain earlier. Pending surgery tomorrow. Otherwise comfortable. Ambulating. June 22: Large right colonic mass removed with right colectomy earlier today by Dr. Reinoso. Midline incision with dressing. Some abdominal pain. Patient has an epidural for pain. Clear liquid diet June 23: Remains an epidural for pain. No bowel movement or flatus. Clear liquids. June 24: Up in a recliner. Remains an epidural for pain. No nausea vomiting. No bowel movement or flatus. Patient for liquid diet per surgery. Connolly catheter in place. June 29: I resumed care of the patient today. Up in a chair. Patient did vomit last night and this morning. Has had very little flatus since surgery. No abdominal distention. Patient nothing by mouth today. X-ray showing ileus. Placed back on IV fluids. 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 June 30: Up in a chair. Did walk up with the nurse's desk. Some abdominal pain. No nausea vomiting. Some status this morning. Several family members at the bedside. Discussed. White count elevated. Discussed with Ed and CAREER TECHNOLOGY TEACHER from surgery about starting antibiotics. Computed tomography scan abdomen done later showed large amount of stool in the cecum and ascending colon. No pneumoperitoneum. Gallstones in the gallbladder neck with fat stranding changes around the gallbladder which is new. Started on IV Zosyn. July 01: In bed. Some abdominal pain. Started IV Zosyn yesterday. Pending input from surgery. Acute cholecystitis. Remains on full liquid diet. Gallbladder ultrasound shows acute cholecystitis. HIDA scan shows poor EF. Active Medications Acetaminophen (Acetaminophen Tab 500 Mg Tab) 500 mg PO Q6HR PRN PRN Reason: Fever and/ or Pain Last Admin: 07/01/23 12:15 Dose: 500 mg Hydrocodone Bitart/Acetaminophen (Hydrocodone/Apap 5-325mg 1 Each Tab) 1 each PO Q4HR PRN PRN Reason: Pain Scale 1-6 Last Admin: 06/29/23 18:44 Dose: 1 each Amlodipine Besylate (Amlodipine 5 Mg Tab) 5 mg PO DAILY [facility] Last Admin: 07/01/23 10:01 Dose: 5 mg Atorvastatin Calcium (Atorvastatin 20 Mg Tab) 20 mg PO HS [facility] Last Admin: 06/30/23 20:39 Dose: 20 mg Cyanocobalamin (Cyanocobalamin 500 Mcg Tab) 1,000 mcg PO DAILY [facility] Last Admin: 07/01/23 10:00 Dose: 1,000 mcg Diphenhydramine HCl (Diphenhydramine 50 Mg/Ml 1 Ml Vial) 12.5 mg IVP Q6HR PRN PRN Reason: Itching Last Admin: 06/23/23 17:17 Dose: 12.5 mg Famotidine (Famotidine 20 Mg Tab) 20 mg PO BID [facility] Last Admin: 07/01/23 10:00 Dose: 20 mg Heparin Sodium (Porcine) (Heparin Sodium,Porcine 5,000 Unit/Ml 1 Ml Vial) 5,000 unit SQ Q8HR [facility] Last Admin: 07/01/23 10:00 Dose: Not Given Hydromorphone HCl (Hydromorphone 1 Mg/Ml 1 Ml Syringe) 1 mg IVP Q3H PRN PRN Reason: Severe Pain (Scale 7 to 10) Last Admin: 06/29/23 06:07 Dose: 1 mg Ropivacaine 250 mg/ Fentanyl Citrate 625 mcg/ Sodium Chloride 250 mls @ 0 mls/hr EPIDURAL .Q0M PRN; Protocol PRN Reason: Analgesia Last Admin: 06/23/23 14:26 Dose: 9 mls/hr Dextrose/Sodium Chloride (Dextrose 5%-1/2ns Iv Soln) 1,000 mls @ 125 mls/hr IV .Q8H [facility] Last Admin: 07/01/23 10:10 Dose: 125 mls/hr Piperacillin Sod/Tazobactam (Sod 3.375 gm/ Sodium Chloride) 100 mls @ 25 mls/hr IVPB Q8HR [facility]; Protocol Last Admin: 07/01/23 10:01 Dose: 25 mls/hr Insulin Aspart (Insulin Aspart (Novolog) 100 Unit/Ml Vial) 0 unit SQ ACHS [facility]; Protocol Last Admin: 07/01/23 12:03 Dose: Not Given Metoclopramide HCl (Metoclopramide 5 Mg/Ml 2 Ml Vial) 10 mg IVP Q6HR [facility] Last Admin: 07/01/23 12:12 Dose: 10 mg Naloxone HCl (Naloxone 0.4 Mg/Ml 1 Ml Vial) 0.2 mg IV Q2M PRN PRN Reason: Opioid Reversal Ondansetron HCl (Ondansetron 4 Mg/2 Ml Vial) 4 mg IVP Q4HR PRN PRN Reason: Nausea And Vomiting Pantoprazole Sodium (Pantoprazole 40 Mg/10 Ml Vial) 40 mg IVP BID [facility] Last Admin: 07/01/23 10:01 Dose: 40 mg On examination: VITAL SIGNS: 100.1, 71, 16, 1:30/69, 96% room air GENERAL APPEARANCE: , Declining, tired HEENT: Normal external appearance of nose and ear. Oral cavity normal EYES: Pupils equal. Conjunctiva normal. NECK: JVD not raised. Mass not palpable. RESPIRATORY: Respiratory effort normal. Lungs clear to auscultation. CARDIOVASCULAR: First and second sounds normal. No edema. ABDOMEN: Soft. Right upper quadrant tenderness. Abdominal binder. Connolly catheter PSYCHIATRY: Alert and oriented x3. Mood and affect normal. INVESTIGATIONS, reviewed in the clinical context: HIDA scan: No gallbladder activity up to 90 minutes. Gallbladder ultrasound: Gallbladder wall thickening with nonmobile gallstones. Hydropic change. Positive Saleh sign. CT abdomen pelvis [June 30] fat stranding around the gallbladder with gallstone. June 30: White count 18.3 hemoglobin 9.6 platelets 280 Abdominal x-ray [June 28]: Postsurgical changes with gases dilatation and loops of small throughout the abdomen. June 29: White count 11.7 hemoglobin 9.8 platelets 26 potassium 4.4 BUN 5.8 June 24: White count 8.0 hemoglobin 9.6 platelets 201 potassium 4 creatinine 0.49 June 21: White count 4.7 hemoglobin 9.2. 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 No filling defect reported.-Delayed transit time. CT abdomen pelvis: Irregular appearance of the terminal ileum with possible underlying mass. Appreciated on the prior exam. Some ingestion miss entry enlarged lymph node. Gallstones. Assessment and plan: -Acute cholecystitis with choledocholithiasis.: Slow to respond HIDA scan: No gallbladder activity up to 90 minutes. Gallbladder ultrasound: Gallbladder wall thickening with nonmobile gallstones. Hydropic change. Positive Saleh sign. IV Zosyn. Discussed with Dr. Reinoso: Continue with antibiotics currently. -Sepsis from above IV Zosyn. D5 0.45. -Right colectomy for a right colon mass. 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 Being followed by oncology -Post operative ileus.: Better For liquid diet -Aspiration during colonoscopy. no fever. Good pulse ox: Complete recovery -Diabetes mellitus type 2, on oral hypoglycemic Follow Accu-Cheks and sliding scale. Hold Glucophage. -Normocytic anemia, likely from underlying malignancy -Essential hypertension Zestoretic. -Hypokalemia, replace -Hyperlipidemia Lipitor Discussed with patient and Dr. Reinoso. Continue with IV Zosyn. Patient at high risk of surgery because of recent surgical intervention. Follow with Dr. Reinoso.
--- NOTE | 2023-07-01 15:05 | P.PN ---
Subjective Progress Note Date: 07/01/23 CHIEF COMPLAINT: cecal mass HISTORY OF PRESENT ILLNESS: Patient postop day #9 status post right colectomy. Patient reports her pain is controlled. She is having flatus. Denies any nausea or vomiting. Patient continues to have low-grade temperatures. WBC 18.37 down to 16.14 Hgb 8.6 platelets 265 sodium 133 potassium 3.6 creatinine 0.44 total bilirubin 0.5 AST 23 ALT 16 alk phos 145. Goal her ultrasound shows gallbladder wall thickening with a couple no mobile gallstones, hydropic change in positive Saleh sign. Findings are supportive of acute cholecystitis. HIDA scan shows no gallbladder activity up to 90 minutes. Findings support acute cholecystitis. PHYSICAL EXAM: VITAL SIGNS: Reviewed. GENERAL: Well-developed in no acute distress. ABDOMEN: Soft. Nondistended. Right upper quadrant tenderness with palpation ASSESSMENT: 1. Large right colon mass status post right colectomy 2. Colon Adenocarcinoma with lymph node involvement 3. Postoperative ileus can be an expected finding after surgery 4. Acute cholecystitis PLAN: -Patient does have evidence of acute cholecystitis. HIDA scan showed nonvisualization of the gallbladder consistent with cystic duct obstruction. We'll manage with antibiotics. If patient's symptoms worsen then may need to proceed with surgery -Continue full liquids -continue Reglan scheduled for ileus -Continue pain management -Encouraged patient to ambulate and increase activity level -Encouraged patient to use incentive spirometer -DVT prophylaxis subcu heparin and GI prophylaxis Pepcid Physician Carroting Machine Operator note has been reviewed by physician. Signing provider agrees with the documented findings, assessment, and plan of care. Objective - Vital Signs Vital signs: Vital Signs Temp 100.1 F H 07/01/23 12:11 Pulse 71 07/01/23 12:11 Resp 16 07/01/23 12:11 BP 130/69 07/01/23 12:11 Pulse Ox 96 07/01/23 12:11 FiO2 Intake & Output 06/30/23 07/01/23 07/01/23 18:59 06:59 18:59 Intake Total 120 Balance 120 Weight 84.822 kg Intake: Oral 120 Other: Voiding Method Toilet Toilet Toilet # Voids 1 - Labs CBC & Chem 7: 07/01/23 05:59 07/01/23 05:59 Labs: Abnormal Lab Results - Last 24 Hours (Table) 06/30/23 06/30/23 07/01/23 Range/Units 16:57 20:37 05:59 WBC 16.14 H (4.50-10.00) X 10*3/uL RBC 3.65 L (4.10-5.20) X 10*6/uL Hgb 8.6 L (12.0-15.0) d/dL Hct 28.9 L (37.2-46.3) % MCV 79.2 L (80.0-97.0) FL MCH 23.6 L (27.0-32.0) pg MCHC 29.8 L (32.0-37.0) d/dL RDW 21.3 H (11.5-14.5) % Neutrophils # 13.59 H (1.80-7.70) X 10*3/uL Monocytes # 1.25 H (0.20-1.00) X 10*3/uL Eosinophils # 0.03 L (0.04-0.35) X 10*3/uL Sodium (137-145) mmol/L BUN (7-17) mg/dL Creatinine (0.52-1.04) mg/dL Glucose (74-99) mg/dL POC Glucose (mg/dL) 115 H 113 H (70-110) mg/dL Calcium (8.4-10.2) mg/dL Alkaline Phosphatase (38-126) U/L Total Protein (6.3-8.2) g/dL Albumin (3.5-5.0) g/dL 07/01/23 07/01/23 07/01/23 Range/Units 05:59 08:38 11:30 WBC (4.50-10.00) X 10*3/uL RBC (4.10-5.20) X 10*6/uL Hgb (12.0-15.0) d/dL Hct (37.2-46.3) % MCV (80.0-97.0) FL MCH (27.0-32.0) pg MCHC (32.0-37.0) d/dL RDW (11.5-14.5) % Neutrophils # (1.80-7.70) X 10*3/uL Monocytes # (0.20-1.00) X 10*3/uL Eosinophils # (0.04-0.35) X 10*3/uL Sodium 133 L (137-145) mmol/L BUN 6 L (7-17) mg/dL Creatinine 0.44 L (0.52-1.04) mg/dL Glucose 120 H (74-99) mg/dL POC Glucose (mg/dL) 122 H 135 H (70-110) mg/dL Calcium 8.3 L (8.4-10.2) mg/dL Alkaline Phosphatase 145 H (38-126) U/L Total Protein 5.2 L (6.3-8.2) g/dL Albumin 2.6 L (3.5-5.0) g/dL
--- NOTE | 2023-07-01 15:30 | P.PN ---
Subjective Progress Note Date: 07/01/23 Principal diagnosis: colon mass At today's visit patient is resting comfortably in bed. Reporting she is feeling improved. Denies n/v. Reports decreased appetite but is tolerating some oral intake. Reports she is passing flatus, but has not had a BM since surgery. CT AP obtained due to elevated WBCs, revealing acute cholecystitis. Temp 100.1 today, zosyn started. WBC improved today to 16.1 Objective - Vital Signs Vital signs: Vital Signs Temp 100.1 F H 07/01/23 12:11 Pulse 71 07/01/23 12:11 Resp 16 07/01/23 12:11 BP 130/69 07/01/23 12:11 Pulse Ox 96 07/01/23 12:11 FiO2 Intake & Output 06/30/23 07/01/23 07/01/23 18:59 06:59 18:59 Intake Total 120 Balance 120 Weight 84.822 kg Intake: Oral 120 Other: Voiding Method Toilet Toilet Toilet # Voids 1 - Constitutional General appearance: Present: no acute distress - EENT Eyes: Present: anicteric sclerae, EOMI ENT: Present: hearing grossly normal - Respiratory Details: breathing is even and unlabored - Cardiovascular Details: breathing is even and unlabored - Gastrointestinal General gastrointestinal: Present: tenderness Localized gastrointestinal: tender: RUQ - Integumentary Integumentary: Absent: cyanotic, jaundiced - Neurologic Neurologic Comment(s): grossly intact - Musculoskeletal Musculoskeletal: Present: strength equal bilaterally - Psychiatric Psychiatric: Present: A&O x's 3, appropriate affect, intact judgment & insight - Labs CBC & Chem 7: 07/01/23 05:59 07/01/23 05:59 Labs: Abnormal Lab Results - Last 24 Hours (Table) 06/30/23 06/30/23 07/01/23 Range/Units 16:57 20:37 05:59 WBC 16.14 H (4.50-10.00) X 10*3/uL RBC 3.65 L (4.10-5.20) X 10*6/uL Hgb 8.6 L (12.0-15.0) d/dL Hct 28.9 L (37.2-46.3) % MCV 79.2 L (80.0-97.0) FL MCH 23.6 L (27.0-32.0) pg MCHC 29.8 L (32.0-37.0) d/dL RDW 21.3 H (11.5-14.5) % Neutrophils # 13.59 H (1.80-7.70) X 10*3/uL Monocytes # 1.25 H (0.20-1.00) X 10*3/uL Eosinophils # 0.03 L (0.04-0.35) X 10*3/uL Sodium (137-145) mmol/L BUN (7-17) mg/dL Creatinine (0.52-1.04) mg/dL Glucose (74-99) mg/dL POC Glucose (mg/dL) 115 H 113 H (70-110) mg/dL Calcium (8.4-10.2) mg/dL Alkaline Phosphatase (38-126) U/L Total Protein (6.3-8.2) g/dL Albumin (3.5-5.0) g/dL 07/01/23 07/01/23 07/01/23 Range/Units 05:59 08:38 11:30 WBC (4.50-10.00) X 10*3/uL RBC (4.10-5.20) X 10*6/uL Hgb (12.0-15.0) d/dL Hct (37.2-46.3) % MCV (80.0-97.0) FL MCH (27.0-32.0) pg MCHC (32.0-37.0) d/dL RDW (11.5-14.5) % Neutrophils # (1.80-7.70) X 10*3/uL Monocytes # (0.20-1.00) X 10*3/uL Eosinophils # (0.04-0.35) X 10*3/uL Sodium 133 L (137-145) mmol/L BUN 6 L (7-17) mg/dL Creatinine 0.44 L (0.52-1.04) mg/dL Glucose 120 H (74-99) mg/dL POC Glucose (mg/dL) 122 H 135 H (70-110) mg/dL Calcium 8.3 L (8.4-10.2) mg/dL Alkaline Phosphatase 145 H (38-126) U/L Total Protein 5.2 L (6.3-8.2) g/dL Albumin 2.6 L (3.5-5.0) g/dL - Imaging and Cardiology CT scan - abdomen: report reviewed CT scan - pelvis: report reviewed US - abdomen: report reviewed HIDA reviewed Assessment and Plan (1) Colon cancer Current Visit: Yes Status: Acute Priority: High Code(s): C18.9 - MALIGNANT NEOPLASM OF COLON, UNSPECIFIED SNOMED Code(s): 326985787 (2) Colonic mass Current Visit: Yes Status: Acute Priority: High Code(s): K63.89 - OTHER SPECIFIED DISEASES OF INTESTINE SNOMED Code(s): 288912323 (3) Partial small bowel obstruction Current Visit: Yes Status: Acute Priority: High Code(s): K56.600 - PARTIAL INTESTINAL OBSTRUCTION, UNSPECIFIED TO CAUSE SNOMED Code(s): 081631710 (4) Acute cholecystitis Current Visit: Yes Status: Acute Priority: High Code(s): K81.0 - ACUTE CHOLECYSTITIS SNOMED Code(s): 07905295 Plan: Colon cancer: -The patient is being seen for a recent diagnosis of carcinoma of the cecum, presenting with small bowel obstruction. Initial CAT scan did not show evidence of metastatic disease. 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 We discussed that at this time she doesn't appear to have any evident residual disease. Based on that, and the initial CAT scan findings, she would be considered curable. However she would be at high risk of recurrence with surgery alone, given the degree of lymph node involvement. Therefore adjuvant chemotherapy would be recommended to maximize her chances of long-term remission. - Given the extent of lymph node involvement, and the patient's good performance status at baseline, she would be recommended FOLFOX in the adjuvant setting. - She was advised of the chemo would start only after she is adequately healed up from the surgery, which would typically be a period of at least 4-6 weeks. She will be seen in the office at that time. We will schedule a PET scan prior to her office visit to check for any metastatic disease developing in the interim. NGS and PD-L1 will also be obtained on pathology Pt and family have been updated in detail regarding results and plan of care Nausea/vomiting: -N/V subsided, appetite is diminished but tolerating some oral intake. Continues on full liquid diet -Abd xray obtained revealed post surgical changes with gaseous dilation of loops of bowel throughout abdomen, possible ileus -Continue anti-emetics as needed and encourage increasing oral intake as tolerated Acute cholecystitis: -Due to elevated WBC and n/v, CT AP was obtained revealing acute cholecystitis with gallstone in the gallbladder neck and adjacent inflammation changes around the gallbladder with wall thickening and pericholecystic fluid. Postsurgical ch anges to the terminal ileum with no evidence of perforation or abscess. There is some free fluid in the pelvis which could be reactive. Gallbladder ultrasound and HIDA scan were obtained and were consistent with acute cholecystitis. Discussed scan results with patient -Spoke with surgical team and plan is for management with IV antibiotics at this time and if symptoms progress/worsen she may need surgical intervention -Temperature of 100.1 was noted today. WBC improved to 16.1 from 18.3. Patient continues on Zosyn -Surgery managing Plan: Defer to the admitting service and the surgical service for ongoing postop care.
[2023-07-01 16:57] LABS: Glucose,Whole Blood 110 mg/dL (70-110)
[2023-07-01] MEDS: HYDROcodone/APAP 5-325MG 1 EACH TAB PO PRN ×2 (19:50→23:45)
[2023-07-01 20:27] LABS: Glucose,Whole Blood 117 mg/dL (70-110)
[2023-07-01] MEDS: ATORVASTATIN 20 MG TAB PO SCH (21:11)
[2023-07-02] MEDS: METOCLOPRAMIDE 5 MG/ML 2 ML VIAL IVP SCH ×3 (05:19→17:33)
[2023-07-02] MEDS: DEXTROSE 5%-0.45% NACL 1,000 ML IV SCH ×3 (05:19→20:41)
[2023-07-02] MEDS: ACETAMINOPHEN TAB 500 MG TAB PO PRN ×2 (05:25→16:15)
[2023-07-02 07:05] LABS: Glucose,Whole Blood 136 mg/dL (70-110)
[2023-07-02] MEDS: INSULIN ASPART (NovoLOG) 100 UNIT/ML VIAL SQ SCH ×4 (07:22→20:36)
[2023-07-02] MEDS: HEPARIN SODIUM,PORCINE 5,000 UNIT/ML 1 ML VIAL SQ SCH ×2 (08:58→16:13)
[2023-07-02] MEDS: CYANOCOBALAMIN 500 MCG TAB PO SCH (08:58)
[2023-07-02] MEDS: PANTOPRAZOLE 40 MG/10 ML VIAL IVP SCH ×2 (08:58→20:41)
[2023-07-02] MEDS: FAMOTIDINE 20 MG TAB PO SCH ×2 (08:58→20:41)
[2023-07-02] MEDS: amLODIPine 5 MG TAB PO SCH (08:58)
[2023-07-02] MEDS: PIPERACILLIN-TAZOBACTAM 3.375 GM in SODIUM CHLORIDE 0.9% 100 ML IVPB SCH ×2 (08:58→16:13)
--- NOTE | 2023-07-02 12:04 | P.PN ---
Progress Note - Text Progress Note Date: 07/02/23 The patient states she feels better today. She has decreased abdominal pain. On exam vital signs appear stable. Abdomen is soft. There is minimal right upper quadrant tenderness. Status post right colectomy for colon cancer with subsequent development of cholecystitis with documented cystic duct obstruction on HIDA scan. Patient's acute cholecystitis be managed conservatively with IV antibiotic. The patient is improving. She will continue receive IV antibiotic. The anticipated a discharge in the next 1-2 days.
[2023-07-02 12:17] LABS: Glucose,Whole Blood 117 mg/dL (70-110)
--- NOTE | 2023-07-02 12:27 | P.PN ---
Subjective Progress Note Date: 07/02/23 Principal diagnosis: colon mass At today's visit patient is resting comfortably in bed. Reporting she is feeling improved. Denies n/v. Reports decreased appetite but is improving. Reports she is passing flatus, but has not had a BM since surgery. Afebrile. Continues on zosyn. Objective - Vital Signs Vital signs: Vital Signs Temp 99 F 07/02/23 07:00 Pulse 94 07/02/23 07:00 Resp 16 07/02/23 07:00 BP 138/63 07/02/23 07:00 Pulse Ox 92 L 07/02/23 07:00 FiO2 Intake & Output 07/01/23 07/02/23 07/02/23 18:59 06:59 18:59 Intake Total 240 Output Total 500 Balance -260 Weight 84.822 kg Intake: Oral 240 Output: Urine 500 Other: Voiding Method Toilet Toilet # Voids 1 - Constitutional General appearance: Present: average body habitus, no acute distress - EENT Eyes: Present: anicteric sclerae, EOMI ENT: Present: hearing grossly normal - Respiratory Details: breathing even and unlabored - Cardiovascular Details: skin warm and dry - Integumentary Integumentary: Absent: cyanotic - Neurologic Neurologic Comment(s): grossly intact - Musculoskeletal Musculoskeletal: Present: strength equal bilaterally - Psychiatric Psychiatric: Present: A&O x's 3, appropriate affect, intact judgment & insight - Labs CBC & Chem 7: 07/01/23 05:59 07/01/23 05:59 Labs: Abnormal Lab Results - Last 24 Hours (Table) 07/01/23 07/02/23 07/02/23 Range/Units 20:25 07:03 12:15 POC Glucose (mg/dL) 117 H 136 H 117 H (70-110) mg/dL Assessment and Plan (1) Colon cancer Current Visit: Yes Status: Acute Priority: High Code(s): C18.9 - MALIGNANT NEOPLASM OF COLON, UNSPECIFIED SNOMED Code(s): 156310302 (2) Colonic mass Current Visit: Yes Status: Acute Priority: High Code(s): K63.89 - OTHER SPECIFIED DISEASES OF INTESTINE SNOMED Code(s): 625239772 (3) Partial small bowel obstruction Current Visit: Yes Status: Acute Priority: High Code(s): K56.600 - PARTIAL INTESTINAL OBSTRUCTION, UNSPECIFIED TO CAUSE SNOMED Code(s): 391883255 (4) Acute cholecystitis Current Visit: Yes Status: Acute Priority: High Code(s): K81.0 - ACUTE CHOLECYSTITIS SNOMED Code(s): 20850486 Plan: Colon cancer: -The patient is being seen for a recent diagnosis of carcinoma of the cecum, presenting with small bowel obstruction. Initial CAT scan did not show evidence of metastatic disease. 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 We discussed that at this time she doesn't appear to have any evident residual disease. Based on that, and the initial CAT scan findings, she would be considered curable. However she would be at high risk of recurrence with surgery alone, given the degree of lymph node involvement. Therefore adjuvant chemotherapy would be recommended to maximize her chances of long-term remission. - Given the extent of lymph node involvement, and the patient's good performance status at baseline, she would be recommended FOLFOX in the adjuvant setting. - She was advised of the chemo would start only after she is adequately healed up from the surgery, which would typically be a period of at least 4-6 weeks. She will be seen in the office at that time. We will schedule a PET scan prior to her office visit to check for any metastatic disease developing in the interim. NGS and PD-L1 will also be obtained on pathology Pt and family have been updated in detail regarding results and plan of care Nausea/vomiting: -N/V subsided, appetite is diminished but improving. Continues on full liquid diet -Abd xray obtained revealed post surgical changes with gaseous dilation of loops of bowel throughout abdomen, possible ileus -Continue anti-emetics as needed and encourage increasing oral intake as tolerated Acute cholecystitis: -Due to elevated WBC and n/v, CT AP was obtained revealing acute cholecystitis with gallstone in the gallbladder neck and adjacent inflammation changes around the gallbladder with wall thickening and pericholecystic fluid. Postsurgical changes to the terminal ileum with no evidence of perforation or abscess. There is some free fluid in the pelvis which could be reactive. Gallbladder ultrasound and HIDA scan were obtained and were consistent with acute cholecystitis. -Spoke with surgical team and plan is for management with IV antibiotics at this time and if symptoms progress/worsen she may need surgical intervention -Afebrile x 24 hs. WBC improved to 16.1. Continues on Zosyn -Surgery managing Plan: Defer to the admitting service and the surgical service for ongoing postop care.
--- NOTE | 2023-07-02 14:29 | P.PN ---
Progress Note - Text Progress Note Date: 07/02/23 This a 77-year-old female who is transferred from outside hospital. Patient points of abdominal pain nausea. The outside facility perform a CAT scan which showed possible partial small bowel charge. 06/13. Patient seen and examined. Lab work showed WBC 7.62, hemoglobin 9.2, platelet count 232. States pain is improved. Denies any nausea 06/14. Patient seen and examined.CT abdominal and pelvis done showed irregular periods the terminal ileum with possible underlying mass. Findings resulting in partial small bowel obstruction. Surgery planning colonoscopy later in the week June 15: I assumed care of the patient today. Patient's had no bowel movement for last 1 week. Very small amount of flatus. Has had intermittent upper abdominal pain. Not related to food. Decreased appetite. I did order a small bowel follow-through. Found to have small bowel mildly diffusely prominent. No filling defect reported.-Delayed transit time. We'll get a GI consultation also. Patient been placed in a full liquid diet per surgery. There is no white count, no fever. DC antibiotics. June 16: Patient seen earlier by Dr. Reinoso. He didn't fast diet. Patient still has some tenderness on deep palpation. I'm concerned about the computed tomography scan findings and given her clinical history. Consult GI. GI is planning to proceed with a colonoscopy tomorrow. June 17: Patient seen by me before procedure this morning. During the procedure patient underwent aspiration. Procedure to be abandoned. Discussed with Dr. Shiv Richter. Depending on how the patient is doing well in the facet endoscopy next 24-48 hours. June 18: I visited the patient last night. Doing well.. No trouble breathing. This morning sitting up in a chair. Breathing is stable. No nausea vomiting. Discussed with GI. Patient stable to proceed for endoscopy tomorrow. Medically cleared. No respiratory symptoms. June 19: This morning patient underwent colonoscopy by Dr. Shiv Richter. Discovered to have a circumferential ulcerated mass in the proximal cecum. Dr. Shiv Richter then called Dr. Dr. Reinoso, we will proceed with surgery on Thursday. Meantime patient is to remain on clear liquids. I discussed this with the patient several family members present at the bedside. Questions answered. June 20: Patient on clear liquid. Up to the bathroom. Pending surgery on Thursday. No nausea vomiting. Discussed with patient. June 21: On clear liquids. Nothing by mouth after midnight. Had some abdominal pain earlier. Pending surgery tomorrow. Otherwise comfortable. Ambulating. June 22: Large right colonic mass removed with right colectomy earlier today by Dr. Reinoso. Midline incision with dressing. Some abdominal pain. Patient has an epidural for pain. Clear liquid diet June 23: Remains an epidural for pain. No bowel movement or flatus. Clear liquids. June 24: Up in a recliner. Remains an epidural for pain. No nausea vomiting. No bowel movement or flatus. Patient for liquid diet per surgery. Connolly catheter in place. June 29: I resumed care of the patient today. Up in a chair. Patient did vomit last night and this morning. Has had very little flatus since surgery. No abdominal distention. Patient nothing by mouth today. X-ray showing ileus. Placed back on IV fluids. 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 June 30: Up in a chair. Did walk up with the nurse's desk. Some abdominal pain. No nausea vomiting. Some status this morning. Several family members at the bedside. Discussed. White count elevated. Discussed with Ed and PEST LOCATOR from surgery about starting antibiotics. Computed tomography scan abdomen done later showed large amount of stool in the cecum and ascending colon. No pneumoperitoneum. Gallstones in the gallbladder neck with fat stranding changes around the gallbladder which is new. Started on IV Zosyn. July 01: In bed. Some abdominal pain. Started IV Zosyn yesterday. Pending input from surgery. Acute cholecystitis. Remains on full liquid diet. Gallbladder ultrasound shows acute cholecystitis. HIDA scan shows poor EF. July 02: Some abdominal pain. IV Zosyn. No nausea vomiting. For liquid diet. No BM. Advance to regular diet for supper per surgery Active Medications Acetaminophen (Acetaminophen Tab 500 Mg Tab) 500 mg PO Q6HR PRN PRN Reason: Fever and/ or Pain Last Admin: 07/02/23 05:25 Dose: 500 mg Hydrocodone Bitart/Acetaminophen (Hydrocodone/Apap 5-325mg 1 Each Tab) 1 each PO Q4HR PRN PRN Reason: Pain Scale 1-6 Last Admin: 07/01/23 23:45 Dose: 1 each Amlodipine Besylate (Amlodipine 5 Mg Tab) 5 mg PO DAILY [facility] Last Admin: 07/02/23 08:58 Dose: 5 mg Atorvastatin Calcium (Atorvastatin 20 Mg Tab) 20 mg PO HS [facility] Last Admin: 07/01/23 21:11 Dose: 20 mg Cyanocobalamin (Cyanocobalamin 500 Mcg Tab) 1,000 mcg PO DAILY [facility] Last Admin: 07/02/23 08:58 Dose: 1,000 mcg Diphenhydramine HCl (Diphenhydramine 50 Mg/Ml 1 Ml Vial) 12.5 mg IVP Q6HR PRN PRN Reason: Itching Last Admin: 06/23/23 17:17 Dose: 12.5 mg Famotidine (Famotidine 20 Mg Tab) 20 mg PO BID [facility] Last Admin: 07/02/23 08:58 Dose: 20 mg Heparin Sodium (Porcine) (Heparin Sodium,Porcine 5,000 Unit/Ml 1 Ml Vial) 5,000 unit SQ Q8HR [facility] Last Admin: 07/02/23 08:58 Dose: 5,000 unit Hydromorphone HCl (Hydromorphone 1 Mg/Ml 1 Ml Syringe) 1 mg IVP Q3H PRN PRN Reason: Severe Pain (Scale 7 to 10) Last Admin: 06/29/23 06:07 Dose: 1 mg Ropivacaine 250 mg/ Fentanyl Citrate 625 mcg/ Sodium Chloride 250 mls @ 0 mls/hr EPIDURAL .Q0M PRN; Protocol PRN Reason: Analgesia Last Admin: 06/23/23 14:26 Dose: 9 mls/hr Dextrose/Sodium Chloride (Dextrose 5%-1/2ns Iv Soln) 1,000 mls @ 125 mls/hr IV .Q8H [facility] Last Admin: 07/02/23 05:19 Dose: Not Given Piperacillin Sod/Tazobactam (Sod 3.375 gm/ Sodium Chloride) 100 mls @ 25 mls/hr IVPB Q8HR [facility]; Protocol Last Admin: 07/02/23 08:58 Dose: 25 mls/hr Insulin Aspart (Insulin Aspart (Novolog) 100 Unit/Ml Vial) 0 unit SQ ACHS [facility]; Protocol Last Admin: 07/02/23 12:48 Dose: Not Given Metoclopramide HCl (Metoclopramide 5 Mg/Ml 2 Ml Vial) 10 mg IVP Q6HR [facility] Last Admin: 07/02/23 13:03 Dose: 10 mg Naloxone HCl (Naloxone 0.4 Mg/Ml 1 Ml Vial) 0.2 mg IV Q2M PRN PRN Reason: Opioid Reversal Ondansetron HCl (Ondansetron 4 Mg/2 Ml Vial) 4 mg IVP Q4HR PRN PRN Reason: Nausea And Vomiting Pantoprazole Sodium (Pantoprazole 40 Mg/10 Ml Vial) 40 mg IVP BID [facility] Last Admin: 07/02/23 08:58 Dose: 40 mg On examination: VITAL SIGNS: 98.9, 96, 15, 124/69, 96% room air GENERAL APPEARANCE: , Sitting up in a chair HEENT: Normal external appearance of nose and ear. Oral cavity normal EYES: Pupils equal. Conjunctiva normal. NECK: JVD not raised. Mass not palpable. RESPIRATORY: Respiratory effort normal. Lungs clear to auscultation. CARDIOVASCULAR: First and second sounds normal. No edema. ABDOMEN: Soft. Right upper quadrant tenderness. Abdominal binder. Connolly catheter PSYCHIATRY: Alert and oriented x3. Mood and affect normal. INVESTIGATIONS, reviewed in the clinical context: HIDA scan: No gallbladder activity up to 90 minutes. Gallbladder ultrasound: Gallbladder wall thickening with nonmobile gallstones. Hydropic change. Positive Saleh sign. CT abdomen pelvis [June 30] fat stranding around the gallbladder with gallstone. June 30: White count 18.3 hemoglobin 9.6 platelets 280 Abdominal x-ray [June 28]: Postsurgical changes with gases dilatation and loops of small throughout the abdomen. June 29: White count 11.7 hemoglobin 9.8 platelets 26 potassium 4.4 BUN 5.8 June 24: White count 8.0 hemoglobin 9.6 platelets 201 potassium 4 creatinine 0.49 June 21: White count 4.7 hemoglobin 9.2. 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 No filling defect reported.-Delayed transit time. CT abdomen pelvis: Irregular appearance of the terminal ileum with possible underlying mass. Appreciated on the prior exam. Some ingestion miss entry enlarged lymph node. Gallstones. Assessment and plan: -Acute cholecystitis with choledocholithiasis.: Slow to respond HIDA scan: No gallbladder activity up to 90 minutes. Gallbladder ultrasound: Gallbladder wall thickening with nonmobile gallstones. Hydropic change. Positive Saleh sign. IV Zosyn. Discussed with Dr. Reinoso: Continue with antibiotics currently. -Sepsis from above IV Zosyn. D5 0.45. -Right colectomy for a right colon mass. 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 Being followed by oncology -Post operative ileus.: Better For liquid diet -Aspiration during colonoscopy. no fever. Good pulse ox: Complete recovery -Diabetes mellitus type 2, on oral hypoglycemic Follow Accu-Cheks and sliding scale. Hold Glucophage. -Normocytic anemia, likely from underlying malignancy -Essential hypertension Zestoretic. -Hypokalemia, replace -Hyperlipidemia Lipitor Continue with IV Zosyn. For liquid diet. Advance to regular diet per surgery.
[2023-07-02 16:57] LABS: Glucose,Whole Blood 122 mg/dL (70-110)
[2023-07-02 20:22] LABS: Glucose,Whole Blood 138 mg/dL (70-110)
[2023-07-02] MEDS: ATORVASTATIN 20 MG TAB PO SCH (20:41)
[2023-07-03] MEDS: METOCLOPRAMIDE 5 MG/ML 2 ML VIAL IVP SCH ×3 (00:02→12:06)
[2023-07-03] MEDS: PIPERACILLIN-TAZOBACTAM 3.375 GM in SODIUM CHLORIDE 0.9% 100 ML IVPB SCH ×2 (00:02→08:37)
[2023-07-03] MEDS: HEPARIN SODIUM,PORCINE 5,000 UNIT/ML 1 ML VIAL SQ SCH ×2 (00:02→08:37)
[2023-07-03] MEDS: HYDROcodone/APAP 5-325MG 1 EACH TAB PO PRN (00:07)
[2023-07-03] MEDS: DEXTROSE 5%-0.45% NACL 1,000 ML IV SCH (04:21)
[2023-07-03 07:11] LABS: Glucose,Whole Blood 124 mg/dL (70-110)
[2023-07-03 07:37] LABS: Anisocytosis Slight; Basophils # (A) 0.1 k/uL (0-0.2); Basophils % (A) 1 %; Eosinophils # (A) 0.1 k/uL (0-0.7); Eosinophils % (A) 0 %; HCT 27.3 % (34.0-46.0); HGB 8.3 gm/dL (11.4-16.0); Hypochromasia Marked; Lymphocytes # (A) 1.2 k/uL (1.0-4.8); Lymphocytes % (A) 9 %; MCH 24.5 pg (25.0-35.0); MCHC 30.5 g/dL (31.0-37.0); MCV 80.3 fL (80.0-100.0); Mean Platelet Volume 9.2; Microcytosis Slight; Monocytes # (A) 0.9 k/uL (0-1.0); Monocytes % (A) 7 %; Neutrophils # (A) 10.2 k/uL (1.3-7.7); Neutrophils % (A) 81 %; Platelet Count 305 k/uL (150-450); RDW 19.6 % (11.5-15.5); WBC 12.5 k/uL (3.8-10.6)
[2023-07-03] MEDS: INSULIN ASPART (NovoLOG) 100 UNIT/ML VIAL SQ SCH ×2 (07:58→12:05)
[2023-07-03 08:36] LABS: ALT 19 U/L (4-34); AST 29 U/L (14-36); African American GFR (CKD) >90 (>60 ml/min/1.73 sqM); Albumin 2.3 g/dL (3.5-5.0); Albumin/Globulin Ratio 0.9; Alkaline Phosphatase 188 U/L (38-126); Anion Gap 7 mmol/L; Blood Urea Nitrogen 6 mg/dL (7-17); Calcium 7.8 mg/dL (8.4-10.2); Carbon Dioxide 25 mmol/L (22-30); Chloride 99 mmol/L (98-107); Globulin 2.6 g/dL; Glucose 105 mg/dL (74-99); Non-African American GFR(CKD) >90 (>60 ml/min/1.73 sqM); Potassium 3.4 mmol/L (3.5-5.1); Sodium 131 mmol/L (137-145); Total Bilirubin 0.5 mg/dL (0.2-1.3); Total Protein 4.9 g/dL (6.3-8.2)
[2023-07-03] MEDS: CYANOCOBALAMIN 500 MCG TAB PO SCH (08:37)
[2023-07-03] MEDS: amLODIPine 5 MG TAB PO SCH (08:37)
[2023-07-03] MEDS: FAMOTIDINE 20 MG TAB PO SCH (08:37)
[2023-07-03] MEDS: PANTOPRAZOLE 40 MG/10 ML VIAL IVP SCH (08:37)
--- NOTE | 2023-07-03 08:37 | XR ---
EXAMINATION TYPE: XR abdomen 2V DATE OF EXAM: 07/03/2023 CLINICAL DATA: 77-year-old female follow-up ileus, [facility] COMPARISON: 06/28/2023 FINDINGS: Scattered small air-fluid levels within the colon. Overall abnormal small bowel and colonic distention is improving. Air continues to extend to the rectum. Lower midline skin delbert. Surgical material right lower quadrant. Pelvic phleboliths. No free intraperitoneal air. IMPRESSION: Residual small scattered air-fluid levels throughout the abdomen and pelvis. The degree of distention is improving. Findings suggest improving ileus.
--- NOTE | 2023-07-03 11:44 | P.DS ---
Providers Date of admission: 06/12/23 14:57 Expected date of discharge: 07/03/23 Attending physician: Ruy Reinoso Consults: 06/12/23 14:57 Consult Physician Urgent Consulting Provider: Ruy Reinoso Consult Reason/Comments: Partial small bowel obstruction Do you want consulting provider notified?: Yes 06/16/23 13:03 Consult Physician Routine Consulting Provider: Patti Richter Consult Reason/Comments: abd pain Do you want consulting provider notified?: Yes 06/25/23 13:00 Consult Physician Routine Consulting Provider: Hernesto Alvarez Consult Reason/Comments: Colon adenocarcinoma Do you want consulting provider notified?: Yes 07/01/23 15:06 Consult Physician Routine Consulting Provider: Nithin Welsh Consult Reason/Comments: medical management Do you want consulting provider notified?: Already Contacted Primary care physician: Waqar Almazan - Discharge Diagnosis(es) (1) Ileitis Current Visit: Yes Status: Acute (2) Partial small bowel obstruction Current Visit: Yes Status: Acute Priority: High (3) Chronic constipation Current Visit: Yes Status: Acute Hospital Course: Discharge diagnoses: 1. Large right colon mass status post right colectomy 2. Colon Adenocarcinoma with lymph node involvement 3. Postoperative ileus can be an expected finding after surgery 4. Acute cholecystitis This is a pleasant 77-year-old female who was transferred from [facility] for small bowel obstruction. She was having some abdominal pain since about 2-3 days following her colonoscopy done on 06/01/2023. Pain had gotten worse, she became constipated and was having nausea and vomiting. She had a CT of the abdomen and pelvis at [facility] reporting small bowel obstruction and ileitis. She has a past medical history including chronic constipation, anemia, diabetes mellitus, hyperlipidemia and hypertension. She reports abdominal pain improved, she's had multiple bowel movements and she came here to the hospital. Gen. surgery has been following. She had a CT of the abdomen and pelvis at this facility reporting similar findings from one day prior with irregular appearance of the terminal ileum with possible underlying mass better appreciated on prior exam. Findings result in partial small bowel obstruction. Oral contrast jb wing stents to the jejunum. There may be mildly increased dilation compared to prior exam. Some adjacent mesentery enlarged lymph nodes which could be reactive versus neoplastic if there is underlying mass. Similar pulmonary nodules, short-term follow-up in six-month recommended. Cholelithiasis, small hiatal hernia and moderate coronary artery arthrosclerosis. She also underwent upper GI series reporting no obstruction. Some ileus beginning at the proximal ileum may be present. No ileal mass radiographically apparent small bowel follow-through. She underwent colonoscopy on 06/19/2023 with findings of circumferential ulcerated mass involving the proximal cecum by ileocecal valve with some luminal narrowing status post multiple biopsies and tattooing. She then underwent right colectomy on 06/22/2023. Biopsies came back positive for invasive moderately differentiated colonic adenocarcinoma. Oncology has been following patient patient will follow up outpatient for treatment. During the hospitalization she did continue to have abdominal pain with leukocytosis. Further imaging was done and patient was found to have acute cholecystitis. She is being treated with IV Zosyn and responding well. Patient is passing flatus, no nausea or vomiting, Temp through the night 99.6. She has been up and ambulating. Tolerating regular diet. Abdominal x-ray reviewed with improved ileus. Continue plan of medical therapy for acute cholecystitis and follow-up in the office in one week. Discharge instructions reviewed with patient. Disposition: Home with home health care Condition: Stable The impression and plan of care has been dictated as directed. I performed a history and examination of this patient, discussed the same with the dictator. I agree with the dictator's note ,documented as a scribe. Any additional findings or plans will be noted. Plan - Discharge Summary Discharge Rx Participant: No New Discharge Prescriptions: New HYDROcodone/APAP 5-325MG [[place] 5-325] 1 tab PO Q6HR PRN 3 Days #12 tab PRN Reason: Pain Levofloxacin [Levaquin] 500 mg PO DAILY 10 Days #10 tab Continue Atorvastatin [Lipitor] 20 mg PO HS Omeprazole 40 mg PO BID amLODIPine [Norvasc] 5 mg PO DAILY Lisinopril-Hctz 20-12.5 mg [Zestoretic 20-12.5] 1 tab PO DAILY Metamucil Fiber Gummies 1 tab PO DAILY Ferrous Sulfate [Iron (65 MG Elemental)] 325 mg PO TID metFORMIN HCL ER [Glucophage XR] 500 mg PO W/SUPPER Cyanocobalamin (Vitamin B-12) [Vitamin B-12] 1,000 mcg PO DAILY Discontinued Meloxicam [Mobic] 15 mg PO DAILY metroNIDAZOLE [Flagyl] 500 mg PO BID Clarithromycin [Biaxin] 500 mg PO Q12HR Discharge Medication List Atorvastatin [Lipitor] 20 mg PO HS 06/12/23 [History] Cyanocobalamin (Vitamin B-12) [Vitamin B-12] 1,000 mcg PO DAILY 06/12/23 [History] Ferrous Sulfate [Iron (65 MG Elemental)] 325 mg PO TID 06/12/23 [History] Lisinopril-Hctz 20-12.5 mg [Zestoretic 20-12.5] 1 tab PO DAILY 06/12/23 [History] Metamucil Fiber Gummies 1 tab PO DAILY 06/12/23 [History] Omeprazole 40 mg PO BID 06/12/23 [History] amLODIPine [Norvasc] 5 mg PO DAILY 06/12/23 [History] metFORMIN HCL ER [Glucophage XR] 500 mg PO W/SUPPER 06/12/23 [History] HYDROcodone/APAP 5-325MG [[place] 5-325] 1 tab PO Q6HR PRN 3 Days #12 tab 06/26/23 [Rx] Levofloxacin [Levaquin] 500 mg PO DAILY 10 Days #10 tab 07/03/23 [Rx] Follow up Appointment(s)/Referral(s): Hernesto Alvarez [STAFF PHYSICIAN] - 4 Weeks [facility] [NON-STAFF] - 1-2 Days Waqar Almazan MD [Primary Care Provider] - 1-2 days Ruy Reinoso MD [STAFF PHYSICIAN] - 1 Week Patient Instructions/Handouts: Colectomy (DC), Cholecystitis (GEN) Activity/Diet/Wound Care/Special Instructions: No heavy, lifting, pushing, or pulling of objects greater than 10-15 pounds. No vigorous activity. Shower daily; no tub baths, pools, or hot tubs. No driving until seen by surgeon in follow-up visit. Notify surgeon with inability to pass flatus or have bowel movements, fever greater than 101, changes in incision such as redness, swelling, drainage, or increased pain. Patient verbalized understanding of discharge instructions. Discharge/Stand Alone Forms: Who Do I Call?, Community Resources, Help In The Home Discharge Disposition: HOME WITH HOME HEALTH SERVICES
[2023-07-03 12:01] LABS: Glucose,Whole Blood 139 mg/dL (70-110)
[2023-07-03 12:32] VITALS: BP 118/64; PULSE 91; RESP 20; TEMP 100
--- NOTE | 2023-07-03 18:18 | P.PN ---
Progress Note - Text Progress Note Date: 07/03/23 This a 77-year-old female who is transferred from outside hospital. Patient points of abdominal pain nausea. The outside facility perform a CAT scan which showed possible partial small bowel charge. 06/13. Patient seen and examined. Lab work showed WBC 7.62, hemoglobin 9.2, platelet count 232. States pain is improved. Denies any nausea 06/14. Patient seen and examined.CT abdominal and pelvis done showed irregular periods the terminal ileum with possible underlying mass. Findings resulting in partial small bowel obstruction. Surgery planning colonoscopy later in the week June 15: I assumed care of the patient today. Patient's had no bowel movement for last 1 week. Very small amount of flatus. Has had intermittent upper abdominal pain. Not related to food. Decreased appetite. I did order a small bowel follow-through. Found to have small bowel mildly diffusely prominent. No filling defect reported.-Delayed transit time. We'll get a GI consultation also. Patient been placed in a full liquid diet per surgery. There is no white count, no fever. DC antibiotics. June 16: Patient seen earlier by Dr. Reinoso. He didn't fast diet. Patient still has some tenderness on deep palpation. I'm concerned about the computed tomography scan findings and given her clinical history. Consult GI. GI is planning to proceed with a colonoscopy tomorrow. June 17: Patient seen by me before procedure this morning. During the procedure patient underwent aspiration. Procedure to be abandoned. Discussed with Dr. Shiv Richter. Depending on how the patient is doing well in the facet endoscopy next 24-48 hours. June 18: I visited the patient last night. Doing well.. No trouble breathing. This morning sitting up in a chair. Breathing is stable. No nausea vomiting. Discussed with GI. Patient stable to proceed for endoscopy tomorrow. Medically cleared. No respiratory symptoms. June 19: This morning patient underwent colonoscopy by Dr. Shiv Richter. Discovered to have a circumferential ulcerated mass in the proximal cecum. Dr. Shiv Richter then called Dr. Dr. Reinoso, we will proceed with surgery on Thursday. Meantime patient is to remain on clear liquids. I discussed this with the patient several family members present at the bedside. Questions answered. June 20: Patient on clear liquid. Up to the bathroom. Pending surgery on Thursday. No nausea vomiting. Discussed with patient. June 21: On clear liquids. Nothing by mouth after midnight. Had some abdominal pain earlier. Pending surgery tomorrow. Otherwise comfortable. Ambulating. June 22: Large right colonic mass removed with right colectomy earlier today by Dr. Reinoso. Midline incision with dressing. Some abdominal pain. Patient has an epidural for pain. Clear liquid diet June 23: Remains an epidural for pain. No bowel movement or flatus. Clear liquids. June 24: Up in a recliner. Remains an epidural for pain. No nausea vomiting. No bowel movement or flatus. Patient for liquid diet per surgery. Connolly catheter in place. June 29: I resumed care of the patient today. Up in a chair. Patient did vomit last night and this morning. Has had very little flatus since surgery. No abdominal distention. Patient nothing by mouth today. X-ray showing ileus. Placed back on IV fluids. 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 June 30: Up in a chair. Did walk up with the nurse's desk. Some abdominal pain. No nausea vomiting. Some status this morning. Several family members at the bedside. Discussed. White count elevated. Discussed with Ed and QUALITY ASSURANCE GROUP LEADER from surgery about starting antibiotics. Computed tomography scan abdomen done later showed large amount of stool in the cecum and ascending colon. No pneumoperitoneum. Gallstones in the gallbladder neck with fat stranding changes around the gallbladder which is new. Started on IV Zosyn. July 01: In bed. Some abdominal pain. Started IV Zosyn yesterday. Pending input from surgery. Acute cholecystitis. Remains on full liquid diet. Gallbladder ultrasound shows acute cholecystitis. HIDA scan shows poor EF. July 02: Some abdominal pain. IV Zosyn. No nausea vomiting. For liquid diet. No BM. Advance to regular diet for supper per surgery July 03: Some abdominal pain still present. No nausea vomiting. Patient is given regular diet by surgery yesterday. Has passed flatus. No stool. Surgeries planning for discharge. Current medications reviewed On examination: VITAL SIGNS: 100, 91, 20, 11 8 x 64, 92% room air GENERAL APPEARANCE: , Sitting edge edge of bed, comfortable HEENT: Normal external appearance of nose and ear. Oral cavity normal EYES: Pupils equal. Conjunctiva normal. NECK: JVD not raised. Mass not palpable. RESPIRATORY: Respiratory effort normal. Lungs clear to auscultation. CARDIOVASCULAR: First and second sounds normal. No edema. ABDOMEN: Soft. Mild tenderness. Abdominal binder. PSYCHIATRY: Alert and oriented x3. Mood and affect normal. INVESTIGATIONS, reviewed in the clinical context: July 03: White count 12.5 hemoglobin 8.3 creatinine 0.51 HIDA scan: No gallbladder activity up to 90 minutes. Gallbladder ultrasound: Gallbladder wall thickening with nonmobile gallstones. Hydropic change. Positive Saleh sign. CT abdomen pelvis [June 30] fat stranding around the gallbladder with gallstone. June 30: White count 18.3 hemoglobin 9.6 platelets 280 Abdominal x-ray [June 28]: Postsurgical changes with gases dilatation and loops of small throughout the abdomen. June 29: White count 11.7 hemoglobin 9.8 platelets 26 potassium 4.4 BUN 5.8 June 24: White count 8.0 hemoglobin 9.6 platelets 201 potassium 4 creatinine 0.49 June 21: White count 4.7 hemoglobin 9.2. 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 No filling d efect reported.-Delayed transit time. CT abdomen pelvis: Irregular appearance of the terminal ileum with possible underlying mass. Appreciated on the prior exam. Some ingestion miss entry enlarged lymph node. Gallstones. Assessment and plan: -Acute cholecystitis with choledocholithiasis.: Improving HIDA scan: No gallbladder activity up to 90 minutes. Gallbladder ultrasound: Gallbladder wall thickening with nonmobile gallstones. Hydropic change. Positive Saleh sign. IV Zosyn. Discussed with Dr. Reinoso: Continue with antibiotics currently. -Sepsis from above IV Zosyn. D5 0.45. -Right colectomy for a right colon mass. 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 Being followed by oncology -Post operative ileus.: Better Regular diet per surgery -Aspiration during colonoscopy. no fever. Good pulse ox: Complete recovery -Diabetes mellitus type 2, on oral hypoglycemic Follow Accu-Cheks and sliding scale. Glucophage. -Normocytic anemia, likely from underlying malignancy -Essential hypertension Zestoretic. -Hypokalemia, replace -Hyperlipidemia Lipitor Continue current medication treatment plan. Dr. Reinoso planning for discharge. Patient very keen to go home.
== END 2023-07-03 14:11 | disposition home health service (06) | DRG 329 ==
LOC: EC 14:14 → 5NMEDONC 14:57
PROVIDERS: ADMIT Surgery; ATTEND Surgery
PROC: 0DJD8ZZ Inspection of Lower Intestinal Tract, Via Natural or Artificial Opening Endoscopic (ICD-10-PCS; 2023-06-17)
PROC: 0DBH8ZX Excision of Cecum, Via Natural or Artificial Opening Endoscopic, Diagnostic (ICD-10-PCS; 2023-06-19)
PROC: 0DBC8ZX Excision of Ileocecal Valve, Via Natural or Artificial Opening Endoscopic, Diagnostic (ICD-10-PCS; 2023-06-19)
PROC: 0DTF0ZZ Resection of Right Large Intestine, Open Approach (ICD-10-PCS; principal; 2023-06-22 08:45)
DX: C18.0 Malignant neoplasm of cecum (principal); A41.9 Sepsis, unspecified organism; C77.2 Secondary and unspecified malignant neoplasm of intra-abdominal lymph nodes; K56.600 Partial intestinal obstruction, unspecified as to cause; K80.01 Calculus of gallbladder with acute cholecystitis with obstruction; K56.7 Ileus, unspecified; T17.918A Gastric contents in respiratory tract, part unspecified causing other injury, initial encounter; E66.9 Obesity, unspecified; B96.81 Helicobacter pylori [H. pylori] as the cause of diseases classified elsewhere; I10 Essential (primary) hypertension; E11.9 Type 2 diabetes mellitus without complications; E78.5 Hyperlipidemia, unspecified; Z53.9 Procedure and treatment not carried out, unspecified reason; K64.1 Second degree hemorrhoids; K29.00 Acute gastritis without bleeding; K29.80 Duodenitis without bleeding; D63.0 Anemia in neoplastic disease; E87.6 Hypokalemia; K21.00 Gastro-esophageal reflux disease with esophagitis, without bleeding; R00.0 Tachycardia, unspecified; K52.9 Noninfective gastroenteritis and colitis, unspecified; K44.9 Diaphragmatic hernia without obstruction or gangrene; Z80.0 Family history of malignant neoplasm of digestive organs; Z79.1 Long term (current) use of non-steroidal anti-inflammatories (NSAID); Z79.84 Long term (current) use of oral hypoglycemic drugs; Z87.19 Personal history of other diseases of the digestive system; Z91.013 Allergy to seafood; Z79.899 Other long term (current) drug therapy; Z68.30 Body mass index [BMI] 30.0-30.9, adult
CPT/HCPCS: 45378; 45380; 45381; 71045; 74019; 74176; 74220; 76705; 78226; 80048; 80053; 82150; 82378; 82553; 83690; 83735; 84484; 85025; 85027; 85610; 85730; 86850; 86900; 86901; 88305; 88309; 88341; 88342; 93005; 96374; 99285

== ENCOUNTER → 2023-07-30 | Outpatient (CLI) | payer MEDICARE ==
--- NOTE | 2023-08-03 08:38 | PE ---
EXAMINATION TYPE: PET CT fusion skull to thigh DATE OF EXAM: 07/30/2023 COMPARISON: CT abdomen and pelvis 06/30/2023 Prior PET/CT: None at this location HISTORY: Colon cancer TECHNIQUE: Following the intravenous administration of 12.6 mCi of F-18 FDG, whole body images are p erformed from the skull base to the midthigh. Images are reviewed on the computer in the coronal, ax ial, and sagittal planes. Reconstructed rotating images are created on independent workstation and r eviewed on the computer. A localization and attenuation correction CT is performed in conjunction w ith the PET scan. DLP: 600.73 mGycm SCAN: Initial Blood glucose: 118 mg/dL Average Mediastinum SUV: 1.99 Average Liver SUV: 2.8 FINDINGS: NECK: There is some nonspecific uptake in the region of the hypopharynx and posterior level of the v ocal cords. Consider direct visualization. Findings are nonspecific and neoplasm cannot be excluded. THORAX: There is some mild right posterior lateral pleural uptake, image 116, measuring SUV 3.48. ABDOMEN: There is intense uptake surrounding the gallbladder fundus. SUV 12.76 example image 144. Gal lbladder wall thickening is present. Findings are suspicious for gallbladder neoplasm. PELVIS: There is intense activity within the distal colon and rectum, SUV in the range of 14. Uptake within the bowel loops appears greater than typically identified. There are multiple additional areas of uptake within the colon and physiologic bowel activity could be considered. There is uptake at th e anastomosis in the right midabdomen. This can be postsurgical in nature. Has the patient had recen t colonoscopy? OSSEOUS STRUCTURES: No suspicious uptake LOCALIZATION CT: Cholelithiasis noted. Gallbladder wall thickening is evident. The anastomosis in the right upper quadrant. Inguinal adenopathy is present. COMPARISON: No significant change is identified. IMPRESSION: 1. Marked uptake within the thickened gallbladder wall suspicious for gallbladder wall neoplasm. 2. Subtle uptake within some pleural thickening posterior lateral right lung base. Metastatic disease should be considered. 3. Uptake within the colon is higher than typically identified. Although physiologic activity does r emain within the differential, neoplasm should be considered.
== END | disposition home or self-care (01) ==
LOC: RADPETMAIN 14:03
PROVIDERS: ATTEND Internal Medicine Hematology & Oncology
DX: C18.8 Malignant neoplasm of overlapping sites of colon (principal); R93.89 Abnormal findings on diagnostic imaging of other specified body structures
CPT/HCPCS: 78815; A9552

== ENCOUNTER 2023-08-31 05:37 | Day surgery (SDC) | payer MEDICARE ==
[2023-08-27 09:00] VITALS: BMI 26.8
[~2023-08-31 05:37] MED LIST: ACETAMINOPHEN TAB 500 MG TAB PO PRN; HEPARIN SODIUM,PORCINE/PF 5,000 UNIT/0.5 ML SYRINGE SQ PRN
[2023-08-31] MEDS ORDERED: LIDOCAINE 1% (10MG/ML) FOR IV START INTRADERMA PRN (06:08)
[2023-08-31] MEDS ORDERED: DEXAMETHASONE SOD PHOSPHATE 4 MG/ML 1 ML VIAL IV ONE (06:08)
[2023-08-31] MEDS ORDERED: ONDANSETRON 4 MG/2 ML VIAL IVP ONE (06:08)
[2023-08-31] MEDS ORDERED: droPERidol 5 MG/2 ML VIAL IVP ONE (06:08)
[2023-08-31 06:46] LABS: Glucose,Whole Blood 138 mg/dL (70-110)
[2023-08-31] MEDS: LACTATED RINGERS 1,000 ML IV SCH (06:48)
[2023-08-31 07:25] LABS: Anisocytosis Slight; Basophils % (A) 0 %; Eosinophils # (A) 0.1 k/uL (0-0.7); Eosinophils % (A) 1 %; HCT 31.6 % (34.0-46.0); Hypochromasia Moderate; Lymphocytes # (A) 2.4 k/uL (1.0-4.8); Lymphocytes % (A) 33 %; MCH 25.6 pg (25.0-35.0); MCHC 31.4 g/dL (31.0-37.0); MCV 81.4 fL (80.0-100.0); Mean Platelet Volume 8.5; Monocytes # (A) 0.5 k/uL (0-1.0); Monocytes % (A) 7 %; Neutrophils % (A) 56 %; Platelet Count 260 k/uL (150-450); RBC 3.88 m/uL (3.80-5.40); WBC 7.1 k/uL (3.8-10.6)
[2023-08-31 07:29] LABS: African American GFR (CKD) >90 (>60 ml/min/1.73 sqM); Anion Gap 10 mmol/L; Blood Urea Nitrogen 12 mg/dL (7-17); Calcium 9.8 mg/dL (8.4-10.2); Carbon Dioxide 27 mmol/L (22-30); Chloride 103 mmol/L (98-107); Glucose 128 mg/dL (74-99); HGB 9.9 gm/dL (11.4-16.0); Non-African American GFR(CKD) >90 (>60 ml/min/1.73 sqM); Sodium 140 mmol/L (137-145)
[2023-08-31] MEDS ORDERED: GLYCOPYRROLATE 0.2 MG/ML 2 ML VIAL ONE (07:29)
[2023-08-31] MEDS ORDERED: MIDAZOLAM 2 MG/2 ML VIAL ONE (07:29)
[2023-08-31] MEDS ORDERED: SUCCINYLCHOLINE CHLORIDE 200 MG/10 ML VIAL IV ONE (07:29)
[2023-08-31] MEDS ORDERED: ROCURONIUM 10 MG/ML (5 ML VIAL) IV ONE (07:29)
[2023-08-31] MEDS ORDERED: NEOSTIGMINE 1 MG/ML 10 ML VIAL ONE (07:29)
[2023-08-31] MEDS ORDERED: LIDOCAINE 1% INJ 10MG/ML (20 ML MDV) ONE (07:29)
[2023-08-31] MEDS ORDERED: PROPOFOL 10 MG/ML 20 ML VIAL IV ONE (07:29)
[2023-08-31] MEDS ORDERED: fentaNYL (PF) 50 MCG/ML 2 ML AMP ONE (07:29)
[2023-08-31] MEDS ORDERED: ePHEDrine 50 MG/ML 1 ML VIAL ONE (07:29)
[2023-08-31] MEDS ORDERED: BUPIVACAINE (PF) 0.25% 30 ML VIAL SQ ONE ×2 (07:45)
[2023-08-31] MEDS ORDERED: NALOXONE 0.4 MG/ML 1 ML VIAL IV PRN (09:03)
[2023-08-31] MEDS ORDERED: HYDROcodone/APAP 5-325MG 1 EACH TAB PO PRN (09:03)
[2023-08-31] MEDS ORDERED: HYDROmorphone 0.5 MG/0.5 ML SYRINGE IVP PRN (09:03)
[2023-08-31] MEDS ORDERED: ONDANSETRON 4 MG/2 ML VIAL IVP PRN (09:03)
[2023-08-31] MEDS ORDERED: HYDROmorphone 1 MG/ML 1 ML SYRINGE IVP PRN (09:03)
[2023-08-31] MEDS ORDERED: LACTATED RINGERS 1,000 ML IV ONE ×2 (09:03→09:12)
[2023-08-31] MEDS: HYDROmorphone 0.5 MG/0.5 ML SYRINGE IVP PRN ×2 (09:29→09:45)
[2023-08-31] MEDS: ACETAMINOPHEN TAB 325 MG TAB PO PRN (15:22)
[2023-08-31] MEDS ORDERED: DEXTROSE 50% SYRINGE 50 ML IVP PRN ×2 (15:43)
[2023-08-31 17:13] LABS: Glucose,Whole Blood 164 mg/dL (70-110)
[2023-08-31] MEDS: INSULIN ASPART (NovoLOG) 100 UNIT/ML VIAL SQ SCH ×2 (17:39→20:54)
[2023-08-31 20:19] LABS: Glucose,Whole Blood 126 mg/dL (70-110)
[2023-08-31] MEDS ORDERED: ATORVASTATIN 20 MG TAB PO SCH (21:00)
[2023-08-31] MEDS ORDERED: metFORMIN 500 MG TAB PO SCH ×2 (21:00→21:45)
[2023-08-31] MEDS: FERROUS SULFATE 325 MG TAB PO SCH (21:49)
[2023-09-01] MEDS: ACETAMINOPHEN TAB 325 MG TAB PO PRN (00:04)
[2023-09-01 07:41] LABS: Glucose,Whole Blood 100 mg/dL (70-110)
[2023-09-01] MEDS: FERROUS SULFATE 325 MG TAB PO SCH ×2 (08:42→08:43)
[2023-09-01] MEDS: INSULIN ASPART (NovoLOG) 100 UNIT/ML VIAL SQ SCH ×2 (08:42→12:00)
[2023-09-01 08:59] VITALS: BP 101/59; PULSE 66; RESP 16; TEMP 97.7
[2023-09-01] MEDS ORDERED: LISINOPRIL-HCTZ 20-12.5 MG 1 EACH TAB PO SCH (09:00)
[2023-09-01] MEDS ORDERED: amLODIPine 5 MG TAB PO SCH (09:00)
[2023-09-01] MEDS ORDERED: CYANOCOBALAMIN 500 MCG TAB PO SCH (09:00)
[2023-09-01] MEDS ORDERED: ENOXAPARIN 40 MG/0.4 ML SYRINGE SQ SCH (09:00)
[2023-09-01] MEDS: LACTATED RINGERS 1,000 ML IV SCH (10:04)
[2023-09-01 11:07] LABS: Basophils # (A) 0.02 X 10*3/uL (0.00-0.10); Basophils % (A) 0.2 %; Eosinophils # (A) 0.03 X 10*3/uL (0.04-0.35); Eosinophils % (A) 0.4 %; HCT 27.8 % (37.2-46.3); HGB 8.5 g/dL (12.0-15.0); Lymphocytes # (A) 2.85 X 10*3/uL (0.90-5.00); Lymphocytes % (A) 33.6 %; MCH 24.6 pg (27.0-32.0); MCHC 30.6 g/dL (32.0-37.0); MCV 80.6 FL (80.0-97.0); Mean Platelet Volume 10.4 FL (9.5-12.2); Monocytes # (A) 0.63 X 10*3/uL (0.20-1.00); Monocytes % (A) 7.4 %; NRBC Per 100 WBC 0 X 10*3/uL (0.00-0.01); Neutrophils # (A) 4.93 X 10*3/uL (1.80-7.70); Neutrophils % (A) 58.2 %; Platelet Count 218 X 10*3/uL (140-440); RBC 3.45 X 10*6/uL (4.10-5.20); RDW 17.8 % (11.5-14.5); WBC 8.48 X 10*3/uL (4.50-10.00)
[2023-09-01 11:29] LABS: Blood Urea Nitrogen 9.1 mg/dL (9.0-27.0); Chloride 103 mmol/L (96-109); Glucose 92 mg/dL (70-110); Potassium 4.1 mmol/L (3.5-5.5); Sodium 138 mmol/L (135-145)
[2023-09-01 11:30] LABS: ALT 29 U/L (8-44); AST 32 U/L (13-35); Albumin 3.5 g/dL (3.8-4.9); Albumin/Globulin Ratio 1.52 Ratio (1.60-3.17); Alkaline Phosphatase 112 U/L (41-126); Calcium 9.4 mg/dL (8.7-10.3); Carbon Dioxide 24.6 mmol/L (21.6-31.8); Globulin 2.3 g/dL (1.6-3.3); Total Bilirubin 0.3 mg/dL (0.3-1.2); Total Protein 5.8 g/dL (6.2-8.2)
[2023-09-01 11:46] LABS: Glucose,Whole Blood 115 mg/dL (70-110)
--- NOTE | 2023-09-01 12:26 | P.DS ---
Providers Expected date of discharge: 09/01/23 Attending physician: Ruy Reinoso Consults: 08/31/23 09:03 Consult Physician Routine Consulting Provider: Sammy Sequeira Consult Reason/Comments: Medical management Do you want consulting provider notified?: Yes Primary care physician: Waqar Almazan Hospital Course: Discharge diagnosis 1. Cholecystitis 2. Colon cancer Hospital course This is a 77-year-old female with cholecystitis. She is status post laparoscopic cholecystectomy. She tolerated surgery well. Her pain is controlled. She is tolerating diet. She has been up and ambulating. She lissette es any flatus. Afebrile. She is stable for discharge. Please refer to chart for further details. Physician Apartment Maintenance Supervisor note has been reviewed by physician. Signing provider agrees with the documented findings, assessment, and plan of care. Patient Condition at Discharge: Stable Plan - Discharge Summary Discharge Rx Participant: No New Discharge Prescriptions: New oxyCODONE HCL [OxyIR] 5 mg PO Q6H PRN 3 Days #12 tab PRN Reason: Pain Acetaminophen Tab [Tylenol] 1,000 mg PO Q6HR PRN #30 tablet PRN Reason: Pain No Action Atorvastatin [Lipitor] 20 mg PO HS amLODIPine [Norvasc] 5 mg PO DAILY Lisinopril-Hctz 20-12.5 mg [Zestoretic 20-12.5] 1 tab PO DAILY Ferrous Sulfate [Iron (65 MG Elemental)] 325 mg PO TID metFORMIN HCL ER [Glucophage XR] 500 mg PO HS Cyanocobalamin (Vitamin B-12) [Vitamin B-12] 1,000 mcg PO DAILY Discharge Medication List Atorvastatin [Lipitor] 20 mg PO HS 06/12/23 [History] Cyanocobalamin (Vitamin B-12) [Vitamin B-12] 1,000 mcg PO DAILY 06/12/23 [History] Ferrous Sulfate [Iron (65 MG Elemental)] 325 mg PO TID 06/12/23 [History] Lisinopril-Hctz 20-12.5 mg [Zestoretic 20-12.5] 1 tab PO DAILY 06/12/23 [History] amLODIPine [Norvasc] 5 mg PO DAILY 06/12/23 [History] metFORMIN HCL ER [Glucophage XR] 500 mg PO HS 06/12/23 [History] Acetaminophen Tab [Tylenol] 1,000 mg PO Q6HR PRN #30 tablet 09/01/23 [Rx] oxyCODONE HCL [OxyIR] 5 mg PO Q6H PRN 3 Days #12 tab 09/01/23 [Rx] Follow up Appointment(s)/Referral(s): Ruy Reinoso MD [STAFF PHYSICIAN] - 09/15/23 10:10 am Patient Instructions/Handouts: *Sur[facility] - Laparoscopic Cholecystectomy Discharge Instructions, *[facility] - Managing Your Pain After Surgery Without Opioids, *[facility] - (Anesthesia) Discharge Instructions Outpatient Surgery, Low Fat Diet (DC), Low Fat Diet (GEN) Activity/Diet/Wound Care/Special Instructions: No driving while taking OxyIR No lifting over 10 pounds Shower daily. No soaking or tub baths for 2 weeks Very light activity until you are reevaluated at your follow up appointment with your surgeon Discharge Disposition: HOME SELF-CARE
--- NOTE | 2023-09-01 13:25 | P.CONS ---
History of Present Illness - Reason for Consult Consult date: 09/01/23 Medical management - History of Present Illness History of present illness; patient is a 77-year-old lady with past medical significant for chronic constipation, anemia, diabetes mellitus, hyperlipidemia and hypertension, recently underwent colonoscopy on 06/19/2023 with findings of circumferential ulcerated mass involving the proximal cecum by ileocecal valve with some luminal narrowing status post multiple biopsies and tattooing. She then underwent right colectomy on 06/22/2023. Biopsies came back positive for invasive moderately differentiated colonic adenocarcinoma, patient was found to have acute cholecystitis and was scheduled for elective laparoscopic cholecystomy. Patient underwent laparoscopic cholecystectomy on 08/31. Initial lab work done showed the bili was 7.1, hemoglobin 9.9, platelet count 260, sodium 140, potassium 4, BUNs creatinine 0.52, glucose 128 Postoperatively internal medicine team was consulted for medical management REVIEW OF SYSTEMS: CONSTITUTIONAL: No fever, no malaise, no fatigue. HEENT: No recent visual problems or hearing problems. Denied any sore throat. CARDIOVASCULAR: No chest pain, orthopnea, PND, no palpitations, no syncope. PULMONARY: No shortness of breath, no cough, no hemoptysis. GASTROINTESTINAL: No diarrhea, no nausea, no vomiting, complaining of abdominal pain at site of surgery NEUROLOGICAL: No headaches, no weakness, no numbness. HEMATOLOGICAL: Denies any bleeding or petechiae. GENITOURINARY: Denies any burning micturition, frequency, or urgency. MUSCULOSKELETAL/RHEUMATOLOGICAL: Denies any joint pain, swelling, or any muscle pain. ENDOCRINE: Denies any polyuria or polydipsia. The rest of the 14-point review of systems is negative. PHYSICAL EXAMINATION: GENERAL: The patient is alert and oriented x3, not in any acute distress. Well developed, well nourished. HEENT: Pupils are round and equally reacting to light. EOMI. No scleral icterus. No conjunctival pallor. Normocephalic, atraumatic. No pharyngeal erythema. No thyromegaly. CARDIOVASCULAR: S1 and S2 present. No murmurs, rubs, or gallops. PULMONARY: Chest is clear to auscultation, no wheezing or crackles. ABDOMEN: Soft, normoactive bowel sounds. No palpable organomegaly. Laparoscopic surgical incision seen MUSCULOSKELETAL: No joint swelling or deformity. EXTREMITIES: No cyanosis, clubbing, or pedal edema. NEUROLOGICAL: Gross neurological examination did not reveal any focal deficits. SKIN: No rashes. Assessment and plan Acute cholecystitis status post laparoscopic cholecystectomy History of right colon mass status post right colectomy Colon Adenocarcinoma with lymph node involvement Monitor vital signs Monitor CBC Monitor CMP Continue postop care per surgery Advance diet per surgery Resume home meds Labs and medication were reviewed.. Continue same treatment. Continue with symptomatic treatment. Resume home medication. Monitor labs and vitals. DVT and GI prophylaxis. Further recommendations as per clinical course of the patient Dictation was produced using [employer] dictation software. please excuse any grammatical, word or spelling errors. Past Medical History Past Medical History: Cancer, Diabetes Mellitus, Hyperlipidemia, Hypertension Additional Past Medical History / Comment(s): type II DM, colon CA History of Any Multi-Drug Resistant Organisms: None Reported Past Surgical History: Appendectomy, Back Surgery, Bowel Resection, Section Additional Past Surgical History / Comment(s): low back surgery Past Anesthesia/Blood Transfusion Reactions: No Reported Reaction Past Psychological History: No Psychological Hx Reported Smoking Status: Never smoker Past Alcohol Use History: None Reported Past Drug Use History: None Reported Medications and Allergies Home Medications Medication Instructions Recorded Confirmed Type Atorvastatin [Lipitor] 20 mg PO HS 06/12/23 08/31/23 History Cyanocobalamin (Vitamin B-12) 1,000 mcg PO DAILY 06/12/23 08/31/23 History [Vitamin B-12] Ferrous Sulfate [Iron (65 MG 325 mg PO TID 06/12/23 08/31/23 History Elemental)] Lisinopril-Hctz 20-12.5 mg 1 tab PO DAILY 06/12/23 08/31/23 History [Zestoretic 20-12.5] amLODIPine [Norvasc] 5 mg PO DAILY 06/12/23 08/31/23 History metFORMIN HCL ER [Glucophage XR] 500 mg PO HS 06/12/23 08/31/23 History Acetaminophen Tab [Tylenol] 1,000 mg PO Q6HR PRN #30 tablet 09/01/23 Rx oxyCODONE HCL [OxyIR] 5 mg PO Q6H PRN 3 Days #12 tab 09/01/23 Rx Allergies Allergy/AdvReac Type Severity Reaction Status Date / Time shellfish derived [Shellfish] Allergy Anaphylaxis Verified 08/31/23 06:21 Physical Exam Vitals: Vital Signs Temp Pulse Resp BP Pulse Ox 09/01/23 07:35 97.7 F 66 16 101/59 95 09/01/23 01:39 98.4 F 81 18 124/68 94 L 08/31/23 19:08 98.1 F 82 17 111/63 97 08/31/23 14:15 98 F 89 17 139/75 98 08/31/23 13:35 90 16 115/71 96 Intake and Output 08/31/23 09/01/23 09/01/23 22:59 06:59 14:59 Other: Voiding Method Toilet # Voids 1 Results CBC & Chem 7: 09/01/23 06:23 09/01/23 06:23 Labs: Abnormal Lab Results - Last 24 Hours (Table) 08/31/23 08/31/23 09/01/23 Range/Units 17:11 20:18 06:23 RBC (4.10-5.20) X 10*6/uL Hgb (12.0-15.0) g/dL Hct (37.2-46.3) % MCH (27.0-32.0) pg MCHC (32.0-37.0) g/dL RDW (11.5-14.5) % Eosinophils # (0.04-0.35) X 10*3/uL Creatinine (0.6-1.5) mg/dL POC Glucose (mg/dL) 164 H 126 H (70-110) mg/dL Hemoglobin A1c 6.1 H (<=6.0) % Total Protein (6.2-8.2) g/dL Albumin (3.8-4.9) g/dL Albumin/Globulin Ratio (1.60-3.17) Ratio 09/01/23 09/01/23 09/01/23 Range/Units 06:23 06:23 11:45 RBC 3.45 L (4.10-5.20) X 10*6/uL Hgb 8.5 L (12.0-15.0) g/dL Hct 27.8 L (37.2-46.3) % MCH 24.6 L (27.0-32.0) pg MCHC 30.6 L (32.0-37.0) g/dL RDW 17.8 H (11.5-14.5) % Eosinophils # 0.03 L (0.04-0.35) X 10*3/uL Creatinine 0.5 L (0.6-1.5) mg/dL POC Glucose (mg/dL) 115 H (70-110) mg/dL Hemoglobin A1c (<=6.0) % Total Protein 5.8 L (6.2-8.2) g/dL Albumin 3.5 L (3.8-4.9) g/dL Albumin/Globulin Ratio 1.52 L (1.60-3.17) Ratio
--- NOTE | 2023-09-25 07:47 | P.OP ---
Date of Procedure: 08/31/23 Preoperative Diagnosis: Cholecystitis Postoperative Diagnosis: Cholecystitis Procedure(s) Performed: Laparoscopic cholecystectomy Anesthesia: XU Surgeon: Ruy Reinoso Estimated Blood Loss (ml): 5 Pathology: other (Gallbladder) Condition: stable Disposition: PACU Description of Procedure: The patient was placed on the operating table. The patient received a general endotracheal tube anesthesia. The patients abdomen was prepped and draped in the usual sterile fashion. Through an infraumbilical stab incision, the fascia of the anterior abdominal wall was grasped with a pair of Kochers and then the Veress needle was placed in the peritoneal cavity. Position of the Veress needle was confirmed with positive drop test. The abdomen was then insufflated. After adequate insufflation, the 10 mm trocar was placed in the peritoneal cavity. Following this the laparoscope was placed in the peritoneal cavity. The patient was placed in the head-up, right side up position and then a 5 mm trocar was placed in the right lateral and right subcostal position under direct visualization. A 8 mm trocar was placed in the epigastric position. The gallbladder was grasped in the fundus and infundibulum. Traction on the gallbladder was placed in the lateral and the cephalad positions. The triangle of Calot was visualized.. The cystic duct was bluntly dissected until the union of the cystic duct and common bile duct was seen. A critical view of safety was achieved. The cystic duct was then divided and sealed with the Harmonic scissors. A PDS Endoloop was then placed throughout the cystic duct stump. The cystic artery divided and sealed with the Harmonic scissors. The gallbladder was then removed from the liver bed using Harmonic scissors. The gallbladder was then extracted through the epigastric port site. Operative field was checked for any bleeding spots and Harmonic scissors was used to coagulate the liver bed. The abdomen was irrigated. The trocars were removed. The skin was closed using interrupted 3-0 Vicryl suture. Dermabond dressing were applied. The patient tolerated the procedure well.
== END 2023-09-01 15:10 | disposition home or self-care (01) ==
LOC: OR 05:37 → 5NMEDONC 09:12 → OR 09-01 15:10
PROVIDERS: ATTEND Surgery
DX: K80.12 Calculus of gallbladder with acute and chronic cholecystitis without obstruction (principal); I10 Essential (primary) hypertension; E78.5 Hyperlipidemia, unspecified; E11.9 Type 2 diabetes mellitus without complications; K21.9 Gastro-esophageal reflux disease without esophagitis; Z79.1 Long term (current) use of non-steroidal anti-inflammatories (NSAID); Z79.84 Long term (current) use of oral hypoglycemic drugs; Z85.038 Personal history of other malignant neoplasm of large intestine; Z79.899 Other long term (current) drug therapy; Z98.890 Other specified postprocedural states; Z91.013 Allergy to seafood
CPT/HCPCS: 88304; 80053; 80048; 85025 ×2; 83036; 47562; J2250; J0330; J1100; J2710; J0690; J2405; J2001; J1650; J3010; J2704; J1170; J1644; J0665

== ENCOUNTER → 2023-11-18 | Outpatient (CLI) | payer MEDICARE ==
[2023-11-18 10:51] LABS: African American GFR (CKD) >90 (>60 ml/min/1.73 sqM); Blood Urea Nitrogen 9 mg/dL (7-17); Non-African American GFR(CKD) >90 (>60 ml/min/1.73 sqM)
--- NOTE | 2023-11-18 14:39 | CT ---
EXAMINATION TYPE: CT ChestAbdPelvis w con DATE OF EXAM: 11/18/2023 COMPARISON: PET CT 07/30/2023 HISTORY: 77-year-old female C18.0, colon cancer, breast ca follow up TECHNIQUE: Contiguous axial scanning of the chest, abdomen, and pelvis performed with IV Contrast, pa tient injected with 100ml mL of Isovue 300. Delayed images through the kidneys were obtained. Coronal /sagittal reconstructions performed. CT DLP: 1881 mGycm Automated exposure control for dose reduction was used. FINDINGS: CHEST: Heart normal size without pericardial effusion. 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 Right anterior chest wall injection port with catheter tip at the lower right brachiocephalic vein. Mildly enlarged caliber main right and left pulmonary arteries up to 2.7 cm may reflect underlying pu lmonary hypertension. No thoracic lymphadenopathy by CT size criteria. Lungs show a few scattered 4 mm and smaller pulmonary nodules. No enlarging pulmonary nodule is seen. The previous area of subpleural thickening posterolateral right base appears to have resolved. Some m inimal residual reticular density may remain here. Finding suggest resolution of previous infectious/ inflammatory focus. No consolidation or pleural effusion. ABDOMEN: No focal liver lesion. Portal venous system is patent. No biliary ductal dilatation. Interval cholecy stectomy. There may be a small 7 mm stone in the cystic duct remnant. Trace residual fluid along the anterior gallbladder fossa. Adrenal glands, kidneys, spleen within normal limits. There is a large hypodense area involving the body and tail of the pancreas measuring 4.5 x 2.1 cm no w appreciated due to the presence of IV contrast. Some mild dilatation of the main pancreatic duct ex tends into the tip of the pancreatic tail. No dilated small bowel, free fluid, or free air. Post surgical change of anterior midline laparotomy. Development of a small fat-containing incisional hernia measuring 2.4 cm wide in the periumbilical umbilical region. No dilated small bowel, free fluid, or free air. No mesenteric or retroperitoneal lymphadenopathy. Postsurgical change near the ileocecal junction. No abnormal increasing soft tissue is identified her e. Oral contrast progressed to the rectum. No pericolonic inflammatory change. Mildly redundant sigmo id colon. PELVIS: Bladder urine distended. Uterus anteverted. Small bilateral ovaries are no abnormal fluid collection the pelvis or pelvic lymphadenopathy. BONES: Mild degenerative change of the hips. No osseous destructive process seen. Hypertrophic facet arthrop athy throughout the lumbar spine with moderate to advanced degenerative disc disease. Degenerative gr aletha 1 retrolisthesis L3-L4 and grade 1 anterolisthesis L4-L5. IMPRESSION: 1. POST RESECTION CHANGE AT THE ILEOCOLONIC JUNCTION. NO EVIDENCE FOR LOCAL RECURRENCE OR METASTATIC DISEASE. 2. HOWEVER, NOW THAT IV CONTRAST HAS BEEN ADMINISTERED, WE NOTE AN ABNORMAL CYSTIC MASS OF THE PANCRE ATIC BODY AND TAIL MEASURING 4.5 X 2.1 CM. CYSTIC PANCREATIC NEOPLASM INCLUDING SEROUS CYSTADENOMA AN D IPMN ARE IN THE DIFFERENTIAL. CORRELATE WITH TUMOR MARKERS AND POSSIBLE EUS. 3. INTERVAL CHOLECYSTECTOMY. THERE IS SOME NONSPECIFIC TRACE RESIDUAL FLUID IN THE GALLBLADDER FOSSA, POSSIBLE POSTSURGICAL CHANGE.
== END | disposition home or self-care (01) ==
LOC: RADCTMAIN 10:10
PROVIDERS: ATTEND Internal Medicine Hematology & Oncology
DX: C18.0 Malignant neoplasm of cecum (principal); D13.6 Benign neoplasm of pancreas; K86.2 Cyst of pancreas; E11.9 Type 2 diabetes mellitus without complications; I10 Essential (primary) hypertension; E78.5 Hyperlipidemia, unspecified
CPT/HCPCS: 82565; 84520; 71260; 74177; 36415; Q9967

== ENCOUNTER → 2023-12-03 | Outpatient (CLI) | payer MEDICARE ==
--- NOTE | 2023-12-03 16:01 | MR ---
EXAMINATION TYPE: MR MRCP DATE OF EXAM: 12/03/2023 3:36 PM CLINICAL INDICATION:Female, 77 years old with history of C18.0 COLON CA, Colon CA COMPARISON: 11/10/2023, 10[birth year]01/1922. TECHNIQUE: Multi planar, T2-weighted imaging with and without fat saturation and chemical shift imag ing was performed of the abdomen. Then, heavily T2 weighted imaging (half-Fourier acquisition single- shot turbo spin-echo) was utilized in order to study the biliary system. Maximum intensity projectio n images were reconstructed from the original data of the biliary tree. 3D images were created on [employer] work station. No Gadolinium given. FINDINGS: Lower Thorax: No evidence for acute process. MRCP: * The intrahepatic ducts have a normal appearance. * The common bile duct at the level of the pancreatic head measures 6 mm in size. * The common hepatic duct measures 10 mm in size. * The pancreatic duct is normal. * The gallbladder is surgically absent. Abdomen: Liver: Mild signal dropout on chemical shift in phase imaging. Pancreas: Redemonstration of pancreatic body/tail mass measuring 41 x 24 mm. This has a similar dilat ion of the main pancreatic duct extending away from this lesion. Spleen: Unremarkable. Adrenal glands: Unremarkable. Kidneys: No obstructive uropathy. Stomach and Bowel: Unremarkable as visualized. Peritoneum: No evidence of pneumoperitoneum or free fluid. Vasculature: Unremarkable. No aortic aneurysm. Musculoskeletal: The osseous structures appear intact. Lymph Nodes: No gross evidence for lymphadenopathy. Abdominal wall: Anterior abdominal wall surgical change. IMPRESSION: 1. Redemonstration of pancreatic body/tail mass measuring 41 x 24 mm. Findings suspicious for underl john[place] pancreatic adenocarcinoma. There is mild uptake within this region on prior PET/CT. 2. The gallbladder has been surgically removed. There is no evidence for mass in the gallbladder [place] a. Findings on prior PET suggest acute cholecystitis. Correlate with pathology and prior surgery. 3. No evidence to suggest ductal stricture, choledocholithiasis, or biliary ductal dilatation.
== END | disposition home or self-care (01) ==
LOC: RADMRIMAIN 14:32
PROVIDERS: ATTEND Internal Medicine Hematology & Oncology
DX: C18.0 Malignant neoplasm of cecum (principal); K86.89 Other specified diseases of pancreas
CPT/HCPCS: 74181

== ENCOUNTER 2024-03-29 14:13 | Emergency (ER) | payer MEDICARE ==
[2024-03-29 14:18] VITALS: RESP 16
--- NOTE | 2024-03-29 14:35 | ED ---
Arrhythmia/Palpitations HPI - General Source: patient, RN notes reviewed Mode of arrival: wheelchair Limitations: no limitations <Geno Payton - Last Filed: 03/29/24 14:33> - General Source: RN notes reviewed, old records reviewed Mode of arrival: wheelchair Limitations: no limitations - History of Present Illness MD Complaint: rapid heart beat, "heart racing", palpitations -: hour(s) Associated Symptoms: denies other symptoms Treatments Prior to Arrival: other <Keanu Ma - Last Filed: 04/06/24 23:19> - General Chief Complaint: Arrhythmia/Palpitations Stated Complaint: Heart Flutter-post chemo Time Seen by Provider: 03/29/24 14:33 - History of Present Illness Initial Comments: Quick Note: This is a 78-year-old female who presents to the emergency department for palpitations. Earlier today the patient was receiving a chemotherapy infusion and after they went to flush her port following completion of the infusion, she developed a fluttering sensation in her chest. Denies any chest pain. States that the sensation is still present, but not as severe. Denies any history of heart attacks. Denies any shortness of breath. (Geno Payton) This is a 78-year-old female to ER for palpitations today. This is after chemotherapy infusion with palpitations here in the ER fluttering in her chest (Keanu Ma) - Related Data Home Medications Medication Instructions Recorded Confirmed Atorvastatin [Lipitor] 20 mg PO HS 06/12/23 03/30/24 Cyanocobalamin (Vitamin B-12) 1,000 mcg PO DAILY 06/12/23 03/30/24 [Vitamin B-12] Ferrous Sulfate [Iron (65 MG 325 mg PO TID 06/12/23 03/30/24 Elemental)] Lisinopril-Hctz 20-12.5 mg 1 tab PO DAILY 06/12/23 03/30/24 [Zestoretic 20-12.5] amLODIPine [Norvasc] 5 mg PO DAILY 06/12/23 03/30/24 metFORMIN HCL ER [Glucophage XR] 500 mg PO HS 06/12/23 03/30/24 Ondansetron [Zofran] 1 tab PO DIRECTED PRN 09/28/23 03/30/24 Prochlorperazine [Compazine] 10 mg PO Q8HR PRN 02/16/24 03/30/24 Previous Rx's Medication Instructions Recorded Acetaminophen Tab [Tylenol] 1,000 mg PO Q6HR PRN #30 tablet 09/01/23 Allergies Allergy/AdvReac Type Severity Reaction Status Date / Time shellfish derived [Shellfish] Allergy Anaphylaxis Verified 03/30/24 12:11 Review of Systems ROS Other: All systems not noted in ROS Statement are negative. <Geno Payton - Last Filed: 03/29/24 14:33> ROS Other: All systems not noted in ROS Statement are negative. <Keanu Ma - Last Filed: 04/06/24 23:19> ROS Statement: Those systems with pertinent positive or pertinent negative responses have been documented in the HPI. Past Medical History Past Medical History: Cancer, Diabetes Mellitus, Hyperlipidemia, Hypertension Additional Past Medical History / Comment(s): type II DM, colon CA History of Any Multi-Drug Resistant Organisms: None Reported Past Surgical History: Appendectomy, Back Surgery, Bowel Resection, Section Additional Past Surgical History / Comment(s): low back surgery Past Anesthesia/Blood Transfusion Reactions: No Reported Reaction Past Psychological History: No Psychological Hx Reported Smoking Status: Never smoker <Geno Payton - Last Filed: 03/29/24 14:33> General Exam Limitations: no limitations <Geno Payton - Last Filed: 03/29/24 14:33> General appearance: alert, in no apparent distress, anxious Head exam: Present: atraumatic, normocephalic, normal inspection Eye exam: Present: normal appearance, PERRL, EOMI. Absent: scleral icterus, conjunctival injection, periorbital swelling ENT exam: Present: normal exam, mucous membranes moist Neck exam: Present: normal inspection. Absent: tenderness, meningismus, lymphadenopathy Respiratory exam: Present: normal lung sounds bilaterally. Absent: respiratory distress, wheezes, rales, rhonchi, stridor Cardiovascular Exam: Present: regular rate, normal rhythm, normal heart sounds. Absent: systolic murmur, diastolic murmur, rubs, gallop, clicks GI/Abdominal exam: Present: soft, normal bowel sounds. Absent: distended, tenderness, guarding, rebound, rigid Extremities exam: Present: normal inspection, full ROM, normal capillary refill. Absent: tenderness, pedal edema, joint swelling, calf tenderness Back exam: Present: normal inspection Neurological exam: Present: alert, oriented X3, CN II-XII intact Psychiatric exam: Present: normal affect, normal mood Skin exam: Present: warm, dry, intact, normal color. Absent: rash <Keanu Ma - Last Filed: 04/06/24 23:19> - General Exam Comments Initial Comments: Visual Physical Exam Vital signs reviewed General: Well-appearing, nontoxic, no acute distress. Head: Normocephalic, atraumatic Eyes: PERRLA, EOMI ENT: Airway patent Chest: Nonlabored breathing Skin: No visual rash, normal skin tone Neuro: Alert and oriented 3 Musculoskeletal: No gross abnormalities (Geno Payton) Course <Keanu Ma - Last Filed: 04/06/24 23:19> Vital Signs 03/29/24 03/29/24 14:15 18:40 Temperature 98.2 F 99.0 F Pulse Rate 93 83 Respiratory 16 16 Rate Blood Pressure 162/90 131/74 O2 Sat by Pulse 100 100 Oximetry - Reevaluation(s) Reevaluation #1: Medical records reviewed (Keanu Ma) Reevaluation #2: Patient symptoms improved (Keanu Ma) Reevaluation #3: Patient informed of results and questions answered (Keanu Ma) Reevaluation #4: Was pt. sent in by a medical professional or institution (, PA, PINSETTER MECHANIC HELPER, urgent care, hospital, or [facility]...) When possible be specific @ -no Did you speak to anyone other than the patient for history (EMS, parent, family, police, friend...)? What history was obtained from this source @ -no Did you review nursing and triage notes (agree or disagree)? Why? @ -agree Are old charts reviewed (outside hosp., previous admission, EMS record, old EKG, old radiological studies, urgent care reports/EKG's, [facility] records)? Report findings @ -yes Differential Diagnosis (chest pain, altered mental status, abdominal pain women, abdominal pain men, vaginal bleeding, weakness, fever, dyspnea, syncope, headache, dizziness, GI bleed, back pain, seizure, CVA, palpatations, mental health, musculoskeletal)? @ -prior EKG interpreted by me (3pts min.). @ -yes X-rays interpreted by me (1pt min.). @ -yes negative for acute disease CT interpreted by me (1pt min.). @ -no U/S interpreted by me (1pt. min.). @ -no What testing was considered but not performed or refused? (CT, X-rays, U/S, labs)? Why? @ -none What meds were considered but not given or refused? Why? @ -none Did you discuss the management of the patient with other professionals (professionals i.e. Dr., PA, PINSETTER MECHANIC HELPER, lab, RT, psych nurse, social services counselor, regional ehs manager, teacher, network security officer, caser in)? Give summary @ -no Was smoking cessation discussed for >3mins.? @ -no Was critical care preformed (if so, how long)? @ -no Were there social determinants of health that impacted care today? How? (Homelessness, low income, unemployed, alcoholism, drug addiction, transportatio n, low edu. Level, literacy, decrease access to med. care, correction, rehab)? @ -none Was there de-escalation of care discussed even if they declined (Discuss DNR or withdrawal of care, Hospice)? DNR status @ -no What co-morbidities impacted this encounter? (DM, HTN, Smoking, COPD, CAD, Cancer, CVA, ARF, Chemo, Hep., AIDS, mental health diagnosis, sleep apnea, morbid obesity)? @ -none Was patient admitted / discharged? Hospital course, mention meds given and route, prescriptions, significant lab abnormalities, going to OR and other pertinent info. @ - Undiagnosed new problem with uncertain prognosis? @ -no Drug Therapy requiring intensive monitoring for toxicity (Heparin, Nitro, Insulin, Cardizem)? @ -no Were any procedures done? @ -no Diagnosis/symptom? @ - Acute, or Chronic, or Acute on Chronic? @ -Acute Uncomplicated (without systemic symptoms) or Complicated (systemic symptoms)? @ -Complicated Side effects of treatment? @ -no Exacerbation, Progression, or Severe Exacerbation? @ -exacerbation Poses a threat to life or bodily function? How? (Chest pain, [place], [place], pneumonia, PE, COPD, DKA, ARF, appy, cholecystitis, CVA, Diverticulitis, Homicidal, Suicidal, threat to staff... and all critical care pts) @ -yes (Keanu Ma) Reevaluation #5: Differential Palpitations Ventricular arrhythmias, atrial arrhythmias, myocardial infarction, anemia, thyrotoxicosis, electrolyte imbalance, hypokalemia, pulmonary embolism, pulmonary disease, drugs, alcohol, anxiety, stress.... This is not meant to be an all-inclusive list. (Keanu Ma) Medical Decision Making <Geno Payton - Last Filed: 03/29/24 14:33> - Lab Data Result diagrams: 03/29/24 14:55 03/29/24 14:55 - EKG Data -: EKG Interpreted by Me - Radiology Data Radiology results: report reviewed (Chest x-ray is negative for acute disease), image reviewed <Keanu Ma - Last Filed: 04/06/24 23:19> - Medical Decision Making I performed the QuickNote portion of this chart. Signed Geno Payton PA-C. (Geno Payton) 78 female palpitations here in the ER related to recent chemotherapy, symptoms resolved here in the ER patient feels well and can be discharged home (Justino Ma) - Lab Data Lab Results 03/29/24 03/29/24 03/29/24 Range/Units 14:55 14:55 14:55 WBC 13.2 H (3.8-10.6) k/uL RBC 3.65 L (3.80-5.40) m/uL Hgb 11.5 (11.4-16.0) gm/dL Hct 36.0 (34.0-46.0) % MCV 98.7 (80.0-100.0) fL MCH 31.4 (25.0-35.0) pg MCHC 31.8 (31.0-37.0) g/dL RDW 18.7 H (11.5-15.5) % Plt Count 87 L (150-450) k/uL MPV 10.1 Neutrophils % 93 % Lymphocytes % 5 % Monocytes % 2 % Eosinophils % 0 % Basophils % 0 % Neutrophils # 12.3 H (1.3-7.7) k/uL Lymphocytes # 0.6 L (1.0-4.8) k/uL Monocytes # 0.2 (0-1.0) k/uL Eosinophils # 0.0 (0-0.7) k/uL Basophils # 0.0 (0-0.2) k/uL Manual Slide Review Performed Hypochromasia Slight Anisocytosis Slight Macrocytosis Slight PT 11.1 (10.0-12.5) sec INR 1.0 (<1.2) APTT 23.7 (22.0-30.0) sec Sodium 140 (137-145) mmol/L Potassium 3.4 L (3.5-5.1) mmol/L Chloride 106 (98-107) mmol/L Carbon Dioxide 25 (22-30) mmol/L Anion Gap 9 mmol/L BUN 4 L (7-17) mg/dL Creatinine 0.49 L (0.52-1.04) mg/dL Est GFR (CKD-EPI)AfAm >90 (>60 ml/min/1.73 sqM) Est GFR (CKD-EPI)NonAf >90 (>60 ml/min/1.73 sqM) Glucose 204 H (74-99) mg/dL Calcium 9.1 (8.4-10.2) mg/dL Magnesium 1.6 (1.6-2.3) mg/dL Total Bilirubin 0.5 (0.2-1.3) mg/dL AST 58 H (14-36) U/L ALT 58 H (4-34) U/L Alkaline Phosphatase 330 H (38-126) U/L Troponin I (0.000-0.034) ng/mL Total Protein 6.3 (6.3-8.2) g/dL Albumin 3.9 (3.5-5.0) g/dL 03/29/24 Range/Units 14:55 WBC (3.8-10.6) k/uL RBC (3.80-5.40) m/uL Hgb (11.4-16.0) gm/dL Hct (34.0-46.0) % MCV (80.0-100.0) fL MCH (25.0-35.0) pg MCHC (31.0-37.0) g/dL RDW (11.5-15.5) % Plt Count (150-450) k/uL MPV Neutrophils % % Lymphocytes % % Monocytes % % Eosinophils % % Basophils % % Neutrophils # (1.3-7.7) k/uL Lymphocytes # (1.0-4.8) k/uL Monocytes # (0-1.0) k/uL Eosinophils # (0-0.7) k/uL Basophils # (0-0.2) k/uL Manual Slide Review Hypochromasia Anisocytosis Macrocytosis PT (10.0-12.5) sec INR (<1.2) APTT (22.0-30.0) sec Sodium (137-145) mmol/L Potassium (3.5-5.1) mmol/L Chloride (98-107) mmol/L Carbon Dioxide (22-30) mmol/L Anion Gap mmol/L BUN (7-17) mg/dL Creatinine (0.52-1.04) mg/dL Est GFR (CKD-EPI)AfAm (>60 ml/min/1.73 sqM) Est GFR (CKD-EPI)NonAf (>60 ml/min/1.73 sqM) Glucose (74-99) mg/dL Calcium (8.4-10.2) mg/dL Magnesium (1.6-2.3) mg/dL Total Bilirubin (0.2-1.3) mg/dL AST (14-36) U/L ALT (4-34) U/L Alkaline Phosphatase (38-126) U/L Troponin I <0.012 (0.000-0.034) ng/mL Total Protein (6.3-8.2) g/dL Albumin (3.5-5.0) g/dL Disposition <Geno Payton - Last Filed: 03/29/24 14:33> Is patient prescribed a controlled substance at d/c from ED?: No Time of Disposition: 17:40 <Keanu Ma - Last Filed: 04/06/24 23:19> Clinical Impression: Palpitations Disposition: HOME SELF-CARE Condition: Good Instructions (If sedation given, give patient instructions): Heart Palpitations (ED) Referrals: Waqar Almazan MD [Primary Care Provider] - 1-2 days
[2024-03-29 15:13] LABS: Anisocytosis Slight; Basophils % (A) 0 %; Eosinophils % (A) 0 %; HGB 11.5 gm/dL (11.4-16.0); Hypochromasia Slight; Lymphocytes # (A) 0.6 k/uL (1.0-4.8); Lymphocytes % (A) 5 %; MCH 31.4 pg (25.0-35.0); MCHC 31.8 g/dL (31.0-37.0); MCV 98.7 fL (80.0-100.0); Macrocytosis Slight; Mean Platelet Volume 10.1; Monocytes # (A) 0.2 k/uL (0-1.0); Monocytes % (A) 2 %; Neutrophils # (A) 12.3 k/uL (1.3-7.7); Neutrophils % (A) 93 %; RBC 3.65 m/uL (3.80-5.40); RDW 18.7 % (11.5-15.5); WBC 13.2 k/uL (3.8-10.6)
[2024-03-29 15:19] LABS: Partial Thromboplastin Time 23.7 sec (22.0-30.0); Prothrombin Time 11.1 sec (10.0-12.5)
[2024-03-29 15:23] LABS: AST 58 U/L (14-36); African American GFR (CKD) >90 (>60 ml/min/1.73 sqM); Albumin 3.9 g/dL (3.5-5.0); Alkaline Phosphatase 330 U/L (38-126); Blood Urea Nitrogen 4 mg/dL (7-17); Calcium 9.1 mg/dL (8.4-10.2); Carbon Dioxide 25 mmol/L (22-30); Glucose 204 mg/dL (74-99); Non-African American GFR(CKD) >90 (>60 ml/min/1.73 sqM); Total Bilirubin 0.5 mg/dL (0.2-1.3); Total Protein 6.3 g/dL (6.3-8.2)
[2024-03-29 15:24] LABS: ALT 58 U/L (4-34); Magnesium 1.6 mg/dL (1.6-2.3)
--- NOTE | 2024-03-29 15:34 | XR ---
EXAMINATION TYPE: XR chest 2V DATE OF EXAM: 03/29/2024 3:29 PM CLINICAL INDICATION:Female, 78 years old with history of Chest Pain; [facility] COMPARISON: Chest radiographs from 06/28/2023 TECHNIQUE: XR chest 2V Frontal view of the chest. FINDINGS: Lungs/Pleura: There is no evidence of pleural effusion, focal consolidation, or pneumothorax. Pulmonary vascularity: Unremarkable. Heart/mediastinum: Cardiomediastinal silhouette is unremarkable. Musculoskeletal: No acute osseous pathology. Other findings: None Lines/Tubes: [id number] projecting over the right hemithorax with distal tip at the cavoatrial junction. IMPRESSION: No acute cardiopulmonary disease/process.
[2024-03-29 15:39] LABS: Platelet Count 87 k/uL (150-450)
[2024-03-29 15:40] LABS: Anion Gap 9 mmol/L; Chloride 106 mmol/L (98-107); Potassium 3.4 mmol/L (3.5-5.1); Sodium 140 mmol/L (137-145)
[2024-03-29 18:42] VITALS: BP 131/74; PULSE 83; TEMP 99
== END 2024-03-29 19:02 | disposition home or self-care (01) ==
LOC: EC 14:13
DX: R00.2 Palpitations (principal); Z91.013 Allergy to seafood
CPT/HCPCS: 99285 ×2; 96374; 36415; 93005; 80053; 83735; 84484; 85025; 85610; 85730; 71046; J1642

== ENCOUNTER 2024-10-06 06:56 | Day surgery (SDC) | payer MEDICARE, OTHER ==
[2024-10-04 12:16] VITALS: BMI 26.4
[2024-10-06 07:50] LABS: Glucose,Whole Blood 111 mg/dL (70-110)
[2024-10-06] MEDS: LACTATED RINGERS 500 ML IV ONE (07:52)
[2024-10-06] MEDS: IV FLUID CONTINUATION 500 ML IV ONE (07:52)
[2024-10-06] MEDS ORDERED: LIDOCAINE 1% (10MG/ML) FOR IV START INTRADERMA PRN (07:53)
[2024-10-06] MEDS ORDERED: LACTATED RINGERS 1,000 ML IV SCH (07:53)
[2024-10-06 07:56] VITALS: TEMP 98.7
[2024-10-06] MEDS ORDERED: PROPOFOL 10 MG/ML 20 ML VIAL IV ONE (08:04)
--- NOTE | 2024-10-06 08:24 | P.OP ---
Date of Procedure: 10/06/24 Preoperative Diagnosis: History of right colon cancer Postoperative Diagnosis: History of right colon cancer Normal colonoscopy Procedure(s) Performed: Colonoscopy Anesthesia: MAC Surgeon: Ruy Reinoso Pathology: none sent Condition: stable Disposition: PACU Description of Procedure: The patient was placed on the endoscopy table in the lateral position. She received IV sedation. Digital rectal exams performed. This revealed no abnormality. Flexible colonoscope was then placed patient anus passed throughout the entire colon. Patient appears right colectomy. The ileocolonic anastomosis was visualized. The visualized transverse colon, descending colon and sigmoid colon appeared normal. Scope was back the rectum this appeared normal. Scope withdrawn for the patient.
[2024-10-06 09:18] VITALS: BP 104/63; PULSE 70; RESP 16
[2024-10-10 09:32] LABS: Glucose,Whole Blood 103 mg/dL (70-110)
== END 2024-10-06 09:23 | disposition home or self-care (01) ==
LOC: ORWHC2ENDO 06:56
PROVIDERS: ATTEND Surgery
DX: C18.9 Malignant neoplasm of colon, unspecified (principal); C25.9 Malignant neoplasm of pancreas, unspecified; I10 Essential (primary) hypertension; E78.5 Hyperlipidemia, unspecified; M19.90 Unspecified osteoarthritis, unspecified site; E11.40 Type 2 diabetes mellitus with diabetic neuropathy, unspecified; Z90.410 Acquired total absence of pancreas; Z91.013 Allergy to seafood; Z79.02 Long term (current) use of antithrombotics/antiplatelets; Z79.84 Long term (current) use of oral hypoglycemic drugs; Z79.899 Other long term (current) drug therapy
CPT/HCPCS: 45378; J2704